=== PATIENT | female | born 1945 | race Caucasian/White ===

== ENCOUNTER → 2024-02-28 10:29 | Outpatient (REF) | payer OTHER, SELFPAY | LOC: RAD 10:29 | PROVIDERS: ATTENDING PHYSICIAN Internal Medicine Gastroenterology; FAMILY PHYSICIAN Family Medicine | DX: K76.0 Fatty (change of) liver, not elsewhere classified (principal) | CPT/HCPCS: 76700 ==

== ENCOUNTER → 2024-07-21 15:50 | Outpatient (REF) | payer OTHER, SELFPAY | LOC: RCS 15:50 | PROVIDERS: ATTENDING PHYSICIAN Nuclear Medicine Nuclear Cardiology; FAMILY PHYSICIAN Family Medicine | DX: I35.1 Nonrheumatic aortic (valve) insufficiency (principal) | CPT/HCPCS: 93306 ==

== ENCOUNTER → 2025-01-15 09:10 | Outpatient (REF) | payer OTHER, SELFPAY | LOC: PET 09:10 | PROVIDERS: ATTENDING PHYSICIAN Internal Medicine Critical Care Medicine | DX: R91.1 Solitary pulmonary nodule (principal) | CPT/HCPCS: 78815; A9552 ==

== ENCOUNTER → 2025-01-16 13:15 | Outpatient (REF) | payer OTHER, SELFPAY | LOC: HWRAD 13:15 | PROVIDERS: ATTENDING PHYSICIAN Internal Medicine Critical Care Medicine; FAMILY PHYSICIAN Family Medicine; REFERRING PHYSICIAN Specialist | DX: R91.1 Solitary pulmonary nodule (principal) | CPT/HCPCS: 71250 ==

== ENCOUNTER 2025-01-19 06:55 | Outpatient (REF) | payer OTHER, SELFPAY ==
[2025-01-19 07:23] LABS: Hematocrit 31.2 % (37.0-47.0); Hemoglobin 11.1 g/dL (12.0-16.0); Mean Corp Hgb Conc. 35.6 g/dL (33.0-37.0); Mean Corpuscular Hgb 32.8 pg (27.0-31.0); Mean Corpuscular Volume 92.3 fL (81.0-99.0); Mean Platelet Volume 8.9 fL (7.4-10.4); Platelet Count 143 10^3/uL (130-400); Red Blood Cell Count 3.38 10^6/uL (4.20-5.40); Red Cell Dist. Width 13.7 % (11.5-14.5); White Blood Cell Count 4.5 10^3/uL (4.8-10.8)
[2025-01-19 07:33] LABS: INR 0.99; PT 13.6 Sec (11.4-14.6)
[2025-01-19 07:37] VITALS: BP 150/55; BP_SYST 67
[2025-01-19 07:52] LABS: Glucose - Point of Care 82 mg/dl (70-99)
[2025-01-19 09:15] VITALS: BP 118/39
[2025-01-19 09:54] LABS: Glucose - Point of Care 67 mg/dl (70-99)
[2025-01-19 10:00] VITALS: BP 138/46
[2025-01-19 10:11] LABS: Glucose - Point of Care 72 mg/dl (70-99)
[2025-01-19 10:30] VITALS: BP 112/38
[2025-01-19 11:30] VITALS: BP 127/34
== END 2025-01-19 12:19 | disposition home or self-care (01) ==
LOC: RADI 06:55
PROVIDERS: ATTENDING PHYSICIAN Internal Medicine Critical Care Medicine; FAMILY PHYSICIAN Family Medicine; OTHER PHYSICIAN Physician Assistant
DX: C78.7 Secondary malignant neoplasm of liver and intrahepatic bile duct (principal); C80.1 Malignant (primary) neoplasm, unspecified; D68.8 Other specified coagulation defects
CPT/HCPCS: 88307; 36415; 47000; 76942; 82962; 85027; 85610; 88333; 88334; 88341; 88342; 88360; 99152; 99153

== ENCOUNTER 2025-01-22 06:09 | Day surgery (SDC) | payer OTHER, SELFPAY ==
[2025-01-16 11:32] LABS: INR 1.09; PT 14.4 Sec (11.4-14.6)
[2025-01-16 14:15] VITALS: BMI 21.2
[2025-01-22] VITALS (11 sets, daily range): BP systolic 120–151; BP diastolic 45–59; BMI 21.2
[2025-01-22 06:57] LABS: Glucose - Point of Care 138 mg/dl (70-99)
[2025-01-22 08:57] LABS: Glucose - Point of Care 125 mg/dl (70-99)
== END 2025-01-22 10:13 | disposition home or self-care (01) ==
LOC: GI 06:09
PROVIDERS: ATTENDING PHYSICIAN Internal Medicine Critical Care Medicine; FAMILY PHYSICIAN Family Medicine
DX: C34.31 Malignant neoplasm of lower lobe, right bronchus or lung (principal); R91.1 Solitary pulmonary nodule; R59.0 Localized enlarged lymph nodes
CPT/HCPCS: 31629; 31628; 31624; 31623; 31627; 31654; 88173; 88305; 36415; 71045; 76000; 82962; 85610; 85730; 87070; 87102; 87116; 87205; 88112; 88333; 88334; 88341; 88342; 93005; 94640; C1887

== ENCOUNTER → 2025-02-01 17:33 | Outpatient (REF) | payer OTHER, SELFPAY | LOC: MRI 17:33 | PROVIDERS: ATTENDING PHYSICIAN Internal Medicine Critical Care Medicine; FAMILY PHYSICIAN Family Medicine | DX: C34.31 Malignant neoplasm of lower lobe, right bronchus or lung (principal) | CPT/HCPCS: 70553; A9575 ==

== ENCOUNTER → 2025-02-26 08:29 | Outpatient (REF) | payer OTHER, SELFPAY ==
[2025-02-26 08:57] VITALS: BP 160/54; BP_SYST 61
[2025-02-26 10:45] VITALS: BP 151/49; BP 155/48; BP_SYST 64
[2025-02-26 10:50] VITALS: BP 151/49; BP_SYST 64
== END ==
LOC: RADI 08:29
PROVIDERS: ATTENDING PHYSICIAN Internal Medicine Hematology & Oncology; FAMILY PHYSICIAN Family Medicine
DX: C34.11 Malignant neoplasm of upper lobe, right bronchus or lung (principal); D69.49 Other primary thrombocytopenia
CPT/HCPCS: 36561; 76937; 77001; 99152; 99153; C1788

== ENCOUNTER 2025-03-28 11:34 | Outpatient (RCR) | payer OTHER, SELFPAY ==
[2025-03-19 10:33] LABS: % Basophils 0.2 % (0-2); % Eosinophils 1.2 % (0-6); % Immature Granulocytes 0.5 % (0-0.5); % Lymphocytes 17.6 % (20.5-51.1); % Monocytes 7.1 % (1.7-9.3); % Neutrophils 73.4 % (42.2-75.2); Absolute Eosinophils 0.1 10^3/uL (0-0.7); Absolute Lymphocytes 0.7 10^3/uL (1.2-3.4); Absolute Monocytes 0.3 10^3/uL (0.1-0.6); Hematocrit 30.8 % (37.0-47.0); Hemoglobin 10.9 g/dL (12.0-16.0); Mean Corp Hgb Conc. 35.4 g/dL (33.0-37.0); Mean Corpuscular Hgb 32.4 pg (27.0-31.0); Mean Corpuscular Volume 91.7 fL (81.0-99.0); Mean Platelet Volume 8.7 fL (7.4-10.4); Platelet Count 158 10^3/uL (130-400); Red Blood Cell Count 3.36 10^6/uL (4.20-5.40); Red Cell Dist. Width 13.6 % (11.5-14.5); White Blood Cell Count 4.1 10^3/uL (4.8-10.8)
[2025-03-19 11:32] LABS: ALT (SGPT) 16 U/L (0-35); AST (SGOT) 25 U/L (14-36); Albumin 4.6 g/dl (3.5-5.0); Alkaline Phosphatase 58 U/L (38-126); Blood Urea Nitrogen 32 mg/dl (7-17); Carbon Dioxide 22 mmol/L (22-30); Chloride 111 mmol/L (98-107); Glucose 101 mg/dl (70-99); Potassium 5.1 mmol/L (3.5-5.1); Sodium 141 mmol/L (135-145); Total Bilirubin 0.8 mg/dl (0.2-1.3); Total Protein 7.2 g/dl (6.3-8.2); eGFR 51.11
[2025-03-19 11:58] LABS: TSH Reflex To Free T4 3.39 uIU/ml (0.47-4.68)
[2025-03-20] VITALS (10 sets, daily range): BP systolic 109–160; BP diastolic 41–95
[2025-03-20] MEDS: OPDIVO 136 MG IV ×2 (09:22)
[2025-03-20] MEDS: YERVOY 61.42 MG IV (10:03)
[2025-03-20] MEDS: EMEND 150 MG IV (10:45)
[2025-03-20] MEDS: ALOXI 5 MG IV (10:45)
[2025-03-20] MEDS: DECADRON 51 MG IV (11:25)
[2025-03-20] MEDS: ABRAXANE 25.8 MG IV (11:44)
[2025-03-20] MEDS: PARAPLATIN 280.2 MG IV (12:26)
[2025-03-27 08:00] VITALS: BP 151/56
[2025-03-27 08:19] LABS: % Basophils 0.4 % (0-2); % Eosinophils 1.1 % (0-6); % Immature Granulocytes 1.5 % (0-0.5); % Lymphocytes 16.8 % (20.5-51.1); % Monocytes 6.6 % (1.7-9.3); % Neutrophils 73.6 % (42.2-75.2); Absolute Lymphocytes 0.5 10^3/uL (1.2-3.4); Absolute Monocytes 0.2 10^3/uL (0.1-0.6); Hematocrit 23.2 % (37.0-47.0); Hemoglobin 8.5 g/dL (12.0-16.0); Mean Corp Hgb Conc. 36.6 g/dL (33.0-37.0); Mean Corpuscular Hgb 33.1 pg (27.0-31.0); Mean Corpuscular Volume 90.3 fL (81.0-99.0); Mean Platelet Volume 8.9 fL (7.4-10.4); Platelet Count 140 10^3/uL (130-400); Red Blood Cell Count 2.57 10^6/uL (4.20-5.40); Red Cell Dist. Width 13.5 % (11.5-14.5); White Blood Cell Count 2.7 10^3/uL (4.8-10.8)
[2025-03-27 08:49] LABS: ALT (SGPT) 16 U/L (0-35); AST (SGOT) 20 U/L (14-36); Albumin 4.1 g/dl (3.5-5.0); Alkaline Phosphatase 52 U/L (38-126); Blood Urea Nitrogen 24 mg/dl (7-17); Calcium 9.1 mg/dl (8.4-10.2); Carbon Dioxide 22 mmol/L (22-30); Chloride 111 mmol/L (98-107); Glucose 140 mg/dl (70-99); Potassium 4.3 mmol/L (3.5-5.1); Sodium 140 mmol/L (135-145); Total Protein 6.4 g/dl (6.3-8.2); eGFR 46.05
[2025-03-27] MEDS: ALOXI 5 MG IV (10:59)
[2025-03-27] MEDS: ABRAXANE 25.8 MG IV (11:07)
[2025-03-27 11:10] VITALS: BP 151/45
[2025-03-27 11:30] VITALS: BP 154/58
[2025-03-27] MEDS: PEPCID 20 MG IV (12:00)
--- NOTE | 2025-03-27 12:24 | PTCARENOTE ---
late entry 1150: Abraxane infusion running with only a minute or two left of the infusion, pt c/o lower back pain that started approximately 10 minutes prior, but did not notify RN. Pt in no distress, describes the pain as 'throbbing' and did get
some relief with standing up. Pain then re-occurred with sitting even with a pillow and warm blanket behind her back. VS at that time were: 100% ra pox, hr 70, rr, 18, bp: 166/54. Notified [place] [employer], and orders entered for Pepcid 20mg IV now, and
at that time Dr. Herrera at bedside to see pt (approximately 12:00 PM). As Pepcid was being given, pt stating 'I think it's almost gone.' NSS IV running and pt offers no c/o pain at this time. Will continue to monitor closely.
--- NOTE | 2025-03-27 12:43 | PTCARENOTE ---
pt observed for approximately 35 minutes after pepcid given, pt offers no complaints states throbbing pain in back is completely gone, last vs: 149/83, hr 70, 100% pox ra, d/c to home with friend.
[2025-03-28] MEDS: NYVEPRIA 6 MG SC (11:54)
[2025-03-28 12:07] VITALS: BP 108/55
== END 2025-03-29 10:26 | disposition home or self-care (01) ==
LOC: OID 11:34
PROVIDERS: ATTENDING PHYSICIAN Internal Medicine Hematology & Oncology
DX: C34.11 Malignant neoplasm of upper lobe, right bronchus or lung (principal); Z51.11 Encounter for antineoplastic chemotherapy (principal); D69.49 Other primary thrombocytopenia
CPT/HCPCS: 36415; 36591; 80053; 84443; 85025; 96365; 96367; 96372; 96375; 96413; 96417; J1453; J2469; J9045; J9228; J9264; J9299; Q5122

== ENCOUNTER 2025-04-14 19:26 | Emergency (ER) | payer OTHER, SELFPAY ==
[2025-04-14 19:29] VITALS: BP 133/57
[2025-04-14 20:53] LABS: % Basophils 0.3 % (0-2); % Eosinophils 0.3 % (0-6); % Immature Granulocytes 0.6 % (0-0.5); % Lymphocytes 17.3 % (20.5-51.1); % Monocytes 4.2 % (1.7-9.3); % Neutrophils 77.3 % (42.2-75.2); Absolute Lymphocytes 0.6 10^3/uL (1.2-3.4); Absolute Monocytes 0.1 10^3/uL (0.1-0.6); Absolute Neutrophils 2.6 10^3/uL (1.4-6.5); Hematocrit 22.8 % (37.0-47.0); Mean Corp Hgb Conc. 35.1 g/dL (33.0-37.0); Mean Corpuscular Hgb 33.2 pg (27.0-31.0); Mean Corpuscular Volume 94.6 fL (81.0-99.0); Mean Platelet Volume 8.9 fL (7.4-10.4); Nucleated Red Blood Cells % 0 %; Platelet Count 123 10^3/uL (130-400); Red Blood Cell Count 2.41 10^6/uL (4.20-5.40); Red Cell Dist. Width 16.8 % (11.5-14.5); White Blood Cell Count 3.4 10^3/uL (4.8-10.8)
[2025-04-14 20:59] VITALS: BP 132/70
[2025-04-14 21:04] LABS: D-Dimer 0.96 ug/mlFEU (0.00-0.50)
--- NOTE | 2025-04-14 21:06 | ED.GENMED ---
History of Present Illness
General
Chief Complaint: Abdominal Pain
Source: patient and family
Exam Limitations: none
Time Seen by Provider: 04/14/25 19:44
Nursing documentation reviewed up to this point in time: agreed with
History of Present Illness
History of Present Illness:
The patient is a 79-year-old female with a history of cancer, presenting with abdominal pain localized beneath the right lower rib area, associated with a slight shortness of breath. The symptoms started upon waking at 7:00 AM today. There is no
nausea or vomiting accompanying these symptoms. The patient describes the pain as being located at the border of the abdomen and chest. She expressed concern about a possible issue with liver or ribs, given her history of cancer. Upon further
inquiry, she noted that deep breaths exacerbate the pain. She has undergone her second round of chemotherapy but has not experienced similar pain during her cancer treatment previously. The patient reports no recent leg swelling, trauma, surgery, or
immobilization. There is no personal history of blood clots, though she has taken blood thinners for about a year in the past but is not on them currently. She does not have a gallbladder, but concerns about potential biliary duct issues were
discussed.
Review of Systems
Review of Systems
Allergies reviewed?: Yes
All Other Systems: ROS reviewed and negative except as documented in HPI and ROS
Phy Exam
Physical Exam
Physical Exam:
GENERAL: Alert , in no apparent distress
EYE: pupils equal and reactive
NECK: Supple, no significant adenopathy.
ENT: o/p clr, mmm.
CARDIAC: Regular rate and rhythm .
LUNGS: Clear breath sounds bilaterally, no acute respiratory distress, no wheezes/rales/rhonchi
ABDOMEN: Vague discomfort to the right upper quadrant no guarding negative Hendrix's
NEUROLOGICAL: Alert and oriented, no focal neuro deficits
SKIN: Warm and dry, skin intact.
MUSCULOSKELETAL: No edema, well perfused.
PSYCH: Normal and appropriate interaction.
Course
Orders/Labs/Results
Orders:
Orders
04/14/25 20:42
Complete Blood Count/With Diff Urgent
Comprehensive Metabolic Panel Urgent
D-Dimer Urgent
Lipase Urgent
Magnesium Urgent
NT-proBNP Urgent
Troponin I Urgent
04/14/25 21:32
CT Pe/abd/pel W Urgent
Reason For Exam: right lower CP elevated dimer, hx of cancer
Abnormal Lab Results
04/14/25 04/14/25
20:42 22:38
WBC 3.4 L 10^3/uL
(4.8-10.8)
RBC 2.41 L 10^6/uL
(4.20-5.40)
Hgb 8.0 L g/dL
(12.0-16.0)
Hct 22.8 L %
(37.0-47.0)
MCH 33.2 H pg
(27.0-31.0)
RDW 16.8 H %
(11.5-14.5)
Plt Count 123 L 10^3/uL
(130-400)
Absolute Lymphs (auto) 0.6 L 10^3/uL
(1.2-3.4)
Immature Gran % 0.6 H %
(0-0.5)
Neutrophils % 77.3 H %
(42.2-75.2)
Lymphocytes % 17.3 L %
(20.5-51.1)
D-Dimer 0.96 H ug/mlFEU
(0.00-0.50)
Chloride 108 H mmol/L
(98-107)
BUN 35 H mg/dl
(7-17)
Creatinine 1.2 H mg/dL
(0.6-1.0)
Glucose 120 H mg/dl
(70-99)
Total Protein 6.2 L g/dl
(6.3-8.2)
POC Glucose 116 H mg/dl
(70-99)
04/14/25 20:42
04/14/25 20:42
Vital Signs
Initial and Last Documented VS:
Initial Vital Signs
Temp Pulse Resp BP Pulse Ox
98.7 F 73 16 133/57 96
04/14/25 19:29 04/14/25 19:29 04/14/25 19:29 04/14/25 19:29 04/14/25 19:29
Last Documented Vital Signs
Temp Pulse Resp BP Pulse Ox
98.7 F 74 14 147/49 96
04/14/25 19:29 04/15/25 00:04 04/15/25 00:04 04/15/25 00:04 04/15/25 00:04
MDM/Problems Addressed
MDM/Problems Addressed:
The plan includes initiating laboratory work, including a D-dimer to assess for potential pulmonary embolism. Imaging will be pursued based on preliminary laboratory findings, likely starting with a Computed Tomography scan to evaluate both chest
and abdomen due to the duality of symptoms. The imaging and labs will help determine if the pain basis is more abdominal (potential liver pathology) or pulmonary (potential pulmonary embolism).
The Differential Diagnosis includes, in no particular order and is not limited to:
1. Pulmonary embolism
2. Liver pathology
3. Biliary duct issues
4. Rib or musculoskeletal involvement
5. Pleural effusion
6. Pancreatitis
7. Peptic ulcer disease
8. Gastroesophageal reflux disease
9. Pericarditis
10. Thoracic aortic aneurysm
*Critical Care Note
Total Time (30-74mins, 75-104mins- exclusive of procedures): Not Applicable
Update Note
Update Note:
CT resulted without emergent findings labs unremarkable. At this point patient generally well-appearing no distress with normal vital signs throughout ER stay stable for outpatient management return precautions given.
ED Attending Note
-
Portions of this chart may have been created with voice recognition software.� Occasional wrong word or��sound alike� substitutions may have occurred due to the inherent limitations of voice recognition software.
Discharge Plan
Departure
Patient Disposition: Home (Routine Discharge)
Date of Disposition: 04/15/25
Time of Disposition: 00:56
Patient with high blood pressure during this ER visit?: No
Condition: Good
Covid-19: Not Applicable
Discharge Problem:
Right-sided chest pain
Instructions: Abdominal Pain
Prescriptions:
No Action
Ozempic 1 mg/dose (4 mg/3 mL) Pen Injector
1 mg SC QWEEK
Rx Instructions:
QFRIDAY
benazepril 40 mg Tablet
40 mg PO BID
fluoxetine 40 mg Capsule
40 mg PO NOON
amlodipine 5 mg Tablet
10 mg PO HS
levothyroxine 100 mcg Tablet
100 mcg PO NOON
zolpidem [Ambien] 5 mg Tablet
2.5 mg PO HS
albuterol sulfate 90 mcg/actuation Hfa Aerosol Inhaler
1 inh INHALATION PRN PRN (Reason: wheezing,sob)
Vitamin V16-Oofna Tablet
1 tab PO .WEEKLY
fenofibrate 160 mg Tablet
160 mg PO HS
insulin glargine [Lantus Solostar U-100 Insulin] 100 unit/mL (3 mL) Insulin Pen
32 unit SC BID
Rx Instructions:
NOON AND PM
paclitaxel protein-bound [Abraxane] 100 mg Suspension For Reconstitution
129 mg IV .WEEKLY
Patient Comments:
. schedule varies
Opdivo
360 mg IV .Q3 WEEKS
Yervoy
57.1 mg IV .[id number]
carboplatin
302 mg IV .WEEKLY
Patient Comments:
schedule varies
Referrals:
UNKNOWN - PT DOES,NOT KNOW [Family Provider]
Activity Restrictions/Additional Instructions:
You came to the emergency department today with concerns of right lower chest and right upper abdominal pain. Here had reassuring assessment. You were found to be fairly anemic please follow closely for monitoring of this. Otherwise return for
any worsening, new or concerning symptoms.
Interventions
Interventions:
*Risk Screen - Suicide Last Done: 04/14/25 19:29
*General Assessment Last Done: 04/14/25 19:29
*ED- Fall Risk Assessment Last Done: 04/14/25 19:54
NW-Eqvkmx-Cogoywhrws Assessment Last Done: 04/14/25 19:54
Discharge Date and Time
Print Language: [place] CITIZ[place]
[2025-04-14 21:11] LABS: Albumin 3.6 g/dl (3.5-5.0); Blood Urea Nitrogen 35 mg/dl (7-17); Carbon Dioxide 22 mmol/L (22-30); Total Protein 6.2 g/dl (6.3-8.2); eGFR 46.05
[2025-04-14 21:15] LABS: NT-proBNP 661 pg/ml; Troponin I < 0.012 ng/ml
[2025-04-14 21:21] LABS: ALT (SGPT) 11 U/L (0-35); AST (SGOT) 22 U/L (14-36); Alkaline Phosphatase 47 U/L (38-126); Calcium 8.7 mg/dl (8.4-10.2); Chloride 108 mmol/L (98-107); Glucose 120 mg/dl (70-99); Lipase 138 U/L (23-300); Magnesium 1.9 mg/dl (1.6-2.3); Potassium 5.1 mmol/L (3.5-5.1); Sodium 137 mmol/L (135-145); Total Bilirubin 0.7 mg/dl (0.2-1.3)
[2025-04-14 22:40] LABS: Glucose - Point of Care 116 mg/dl (70-99)
[2025-04-14 22:42] VITALS: BP 130/76
[2025-04-15 00:04] VITALS: BP 147/49
[2025-04-15 01:00] VITALS: BP 139/50
[2025-04-15 01:25] VITALS: BP 139/50
== END 2025-04-15 01:26 | disposition home or self-care (01) ==
LOC: EMR 19:26
PROVIDERS: Physician Assistant; EMERGENCY PHYSICIAN Student in an Organized Health Care Education/Training Program
DX: R07.89 Other chest pain (principal); R10.9 Unspecified abdominal pain; C34.31 Malignant neoplasm of lower lobe, right bronchus or lung; Z90.49 Acquired absence of other specified parts of digestive tract
CPT/HCPCS: 99284; 71275; 74177; 80053; 82962; 83690; 83735; 83880; 84484; 85025; 85379; Q9967

== ENCOUNTER 2025-04-30 11:16 | Outpatient (RCR) | payer OTHER, SELFPAY ==
[2025-04-03 13:50] LABS: % Basophils 0.2 % (0-2); % Eosinophils 0.1 % (0-6); % Immature Granulocytes 7.5 % (0-0.5); % Lymphocytes 5.6 % (20.5-51.1); % Monocytes 8.5 % (1.7-9.3); % Neutrophils 78.1 % (42.2-75.2); Absolute Immature Granulocytes 1.1 10^3/uL (0-0.05); Absolute Lymphocytes 0.9 10^3/uL (1.2-3.4); Absolute Monocytes 1.3 10^3/uL (0.1-0.6); Absolute Neutrophils 11.9 10^3/uL (1.4-6.5); Hemoglobin 8.6 g/dL (12.0-16.0); Mean Corp Hgb Conc. 34.4 g/dL (33.0-37.0); Mean Corpuscular Hgb 32.1 pg (27.0-31.0); Mean Corpuscular Volume 93.3 fL (81.0-99.0); Mean Platelet Volume 9.1 fL (7.4-10.4); Platelet Count 138 10^3/uL (130-400); Red Blood Cell Count 2.68 10^6/uL (4.20-5.40); Red Cell Dist. Width 15.8 % (11.5-14.5); White Blood Cell Count 15.3 10^3/uL (4.8-10.8)
[2025-04-03 14:36] LABS: ALT (SGPT) 16 U/L (0-35); AST (SGOT) 28 U/L (14-36); Alkaline Phosphatase 97 U/L (38-126); Blood Urea Nitrogen 14 mg/dl (7-17); Carbon Dioxide 21 mmol/L (22-30); Chloride 110 mmol/L (98-107); Glucose 194 mg/dl (70-99); Potassium 3.8 mmol/L (3.5-5.1); Sodium 142 mmol/L (135-145); Total Bilirubin 0.9 mg/dl (0.2-1.3); Total Protein 6.3 g/dl (6.3-8.2); eGFR 46.05
[2025-04-03 15:08] LABS: Calcium 8.7 mg/dl (8.4-10.2)
[2025-04-09 11:31] LABS: % Basophils 0.2 % (0-2); % Eosinophils 0.2 % (0-6); % Immature Granulocytes 0.7 % (0-0.5); % Monocytes 3.6 % (1.7-9.3); % Neutrophils 88.3 % (42.2-75.2); Absolute Lymphocytes 0.4 10^3/uL (1.2-3.4); Absolute Monocytes 0.2 10^3/uL (0.1-0.6); Absolute Neutrophils 5.1 10^3/uL (1.4-6.5); Hematocrit 26.5 % (37.0-47.0); Mean Corpuscular Hgb 32.6 pg (27.0-31.0); Mean Platelet Volume 8.7 fL (7.4-10.4); Platelet Count 113 10^3/uL (130-400); Red Blood Cell Count 2.76 10^6/uL (4.20-5.40); Red Cell Dist. Width 16.9 % (11.5-14.5); White Blood Cell Count 5.8 10^3/uL (4.8-10.8)
[2025-04-09 12:35] LABS: ALT (SGPT) 11 U/L (0-35); AST (SGOT) 20 U/L (14-36); Albumin 3.9 g/dl (3.5-5.0); Alkaline Phosphatase 56 U/L (38-126); Blood Urea Nitrogen 23 mg/dl (7-17); Calcium 8.9 mg/dl (8.4-10.2); Carbon Dioxide 20 mmol/L (22-30); Chloride 110 mmol/L (98-107); Glucose 138 mg/dl (70-99); Potassium 4.4 mmol/L (3.5-5.1); Sodium 141 mmol/L (135-145); Total Bilirubin 0.8 mg/dl (0.2-1.3); Total Protein 6.5 g/dl (6.3-8.2); eGFR 46.05
[2025-04-09 13:29] LABS: Free T4 1.33 ng/dl (0.78-2.19)
[2025-04-10 08:30] VITALS: BP 122/40
[2025-04-10] MEDS: OPDIVO 136 MG IV ×2 (09:40)
[2025-04-10] MEDS: EMEND 150 MG IV (10:22)
[2025-04-10] MEDS: DECADRON 51 MG IV (10:58)
[2025-04-10] MEDS: ALOXI 5 MG IV (11:14)
[2025-04-10] MEDS: PARAPLATIN 278.6 MG IV (11:21)
[2025-04-10 11:30] VITALS: BP 132/41
[2025-04-10 12:00] VITALS: BP 124/45
[2025-04-10 12:30] VITALS: BP 141/49
[2025-04-16 11:49] LABS: % Immature Granulocytes 0.2 % (0-0.5); % Lymphocytes 8.3 % (20.5-51.1); % Neutrophils 86.5 % (42.2-75.2); Absolute Lymphocytes 0.4 10^3/uL (1.2-3.4); Absolute Monocytes 0.2 10^3/uL (0.1-0.6); Absolute Neutrophils 3.6 10^3/uL (1.4-6.5); Hematocrit 27.1 % (37.0-47.0); Hemoglobin 9.4 g/dL (12.0-16.0); Mean Corp Hgb Conc. 34.7 g/dL (33.0-37.0); Mean Corpuscular Volume 95.1 fL (81.0-99.0); Mean Platelet Volume 8.4 fL (7.4-10.4); Platelet Count 147 10^3/uL (130-400); Red Blood Cell Count 2.85 10^6/uL (4.20-5.40); Red Cell Dist. Width 16.9 % (11.5-14.5); White Blood Cell Count 4.2 10^3/uL (4.8-10.8)
[2025-04-16 13:08] LABS: ALT (SGPT) 11 U/L (0-35); AST (SGOT) 24 U/L (14-36); Albumin 4.3 g/dl (3.5-5.0); Alkaline Phosphatase 51 U/L (38-126); Blood Urea Nitrogen 33 mg/dl (7-17); Calcium 9.1 mg/dl (8.4-10.2); Carbon Dioxide 24 mmol/L (22-30); Chloride 109 mmol/L (98-107); Glucose 49 mg/dl (70-99); Potassium 5.1 mmol/L (3.5-5.1); Sodium 140 mmol/L (135-145); Total Bilirubin 0.9 mg/dl (0.2-1.3); Total Protein 7.2 g/dl (6.3-8.2); eGFR 46.05
[2025-04-17 08:35] VITALS: BP 151/51
--- NOTE | 2025-04-17 10:31 | PTCARENOTE ---
0845: pt here for Abraxane, stating that she went to the ER on Wednesday evening for right mid/upper abdominal pain. Pt stating 'they did a cat scan and it showed nothing new, so they told me to go home and take advil.' Pt has not taken advil or
tylenol, due to not wanting to. States the pain is still there especially when taking deeper breaths. Right now pt states pain level is 6/10 on pain scale, feels like a sharp stabbing pain, and is less than when it first started. Offered warm
blanket for comfort and pt stated that it did feel better. Pt denies fevers/chills, she is moving her bowels and is eating and drinking without any issues. ILIA Mcpherson [employer]UST[employer]ER [employer] at [place] @ [phone], will continue to monitor.
--- NOTE | 2025-04-17 10:36 | PTCARENOTE ---
1000: spoke with Ky GU at [place], updated her on pt's pain and going to the ER, she would like to review pt's ER records before proceeding with treatment today. Updated pt, in agreement, will follow.
[2025-04-17] MEDS: PEPCID 52 MG IV (11:04)
[2025-04-17] MEDS: SOLU-CORTEF 40 MG IV (11:05)
[2025-04-17] MEDS: ALOXI 5 MG IV (11:06)
[2025-04-17 11:30] VITALS: BP 129/55
[2025-04-17] MEDS: ABRAXANE 22.6 MG IV (11:32)
[2025-04-17 11:45] VITALS: BP 142/39
--- NOTE | 2025-04-17 11:48 | PTCARENOTE ---
1100: ok to proceed with treatment, pt resting comfortably with warm blanket over abdomen, offers no complaints, will continue to monitor.
[2025-04-17 12:00] VITALS: BP 99/52
[2025-04-17 12:15] VITALS: BP 150/35
[2025-04-18 14:30] VITALS: BP 139/42
[2025-04-18] MEDS: NYVEPRIA 6 MG SC (14:40)
[2025-04-23 15:00] LABS: % Basophils 0.3 % (0-2); % Eosinophils 0.3 % (0-6); % Immature Granulocytes 1.4 % (0-0.5); % Lymphocytes 9.5 % (20.5-51.1); % Monocytes 6.1 % (1.7-9.3); % Neutrophils 82.4 % (42.2-75.2); Absolute Immature Granulocytes 0.1 10^3/uL (0-0.05); Absolute Lymphocytes 0.8 10^3/uL (1.2-3.4); Absolute Monocytes 0.5 10^3/uL (0.1-0.6); Absolute Neutrophils 6.5 10^3/uL (1.4-6.5); Hematocrit 23.9 % (37.0-47.0); Hemoglobin 8.3 g/dL (12.0-16.0); Mean Corp Hgb Conc. 34.7 g/dL (33.0-37.0); Mean Corpuscular Hgb 33.9 pg (27.0-31.0); Mean Corpuscular Volume 97.6 fL (81.0-99.0); Mean Platelet Volume 9.1 fL (7.4-10.4); Platelet Count 112 10^3/uL (130-400); Red Blood Cell Count 2.45 10^6/uL (4.20-5.40); Red Cell Dist. Width 18.9 % (11.5-14.5); White Blood Cell Count 7.9 10^3/uL (4.8-10.8)
[2025-04-23 15:34] LABS: ALT (SGPT) 12 U/L (0-35); AST (SGOT) 18 U/L (14-36); Albumin 4.1 g/dl (3.5-5.0); Alkaline Phosphatase 81 U/L (38-126); Blood Urea Nitrogen 32 mg/dl (7-17); Carbon Dioxide 22 mmol/L (22-30); Chloride 112 mmol/L (98-107); Glucose 123 mg/dl (70-99); Potassium 4.7 mmol/L (3.5-5.1); Sodium 143 mmol/L (135-145); Total Bilirubin 0.8 mg/dl (0.2-1.3); Total Protein 6.4 g/dl (6.3-8.2); eGFR 41.83
[2025-04-23 16:03] LABS: TSH 2.29 uIU/ml (0.47-4.68)
[2025-04-30 11:43] LABS: % Basophils 0.3 % (0-2); % Immature Granulocytes 0.5 % (0-0.5); % Lymphocytes 7.1 % (20.5-51.1); % Monocytes 2.7 % (1.7-9.3); % Neutrophils 89.4 % (42.2-75.2); Absolute Lymphocytes 0.3 10^3/uL (1.2-3.4); Absolute Monocytes 0.1 10^3/uL (0.1-0.6); Absolute Neutrophils 3.3 10^3/uL (1.4-6.5); Hematocrit 23.1 % (37.0-47.0); Hemoglobin 7.9 g/dL (12.0-16.0); Mean Corp Hgb Conc. 34.2 g/dL (33.0-37.0); Mean Corpuscular Hgb 33.9 pg (27.0-31.0); Mean Corpuscular Volume 99.1 fL (81.0-99.0); Mean Platelet Volume 8.5 fL (7.4-10.4); Platelet Count 81 10^3/uL (130-400); Red Blood Cell Count 2.33 10^6/uL (4.20-5.40); Red Cell Dist. Width 19.2 % (11.5-14.5); White Blood Cell Count 3.7 10^3/uL (4.8-10.8)
[2025-04-30 12:42] LABS: ALT (SGPT) 10 U/L (0-35); AST (SGOT) 19 U/L (14-36); Albumin 4.1 g/dl (3.5-5.0); Alkaline Phosphatase 61 U/L (38-126); Blood Urea Nitrogen 32 mg/dl (7-17); Calcium 8.9 mg/dl (8.4-10.2); Carbon Dioxide 20 mmol/L (22-30); Glucose 113 mg/dl (70-99); Total Bilirubin 0.9 mg/dl (0.2-1.3); Total Protein 6.6 g/dl (6.3-8.2); eGFR 41.83
[2025-04-30 13:09] LABS: Chloride 112 mmol/L (98-107); Sodium 141 mmol/L (135-145); TSH Reflex To Free T4 2.75 uIU/ml (0.47-4.68)
[2025-04-30 13:43] LABS: Potassium 4.9 mmol/L (3.5-5.1)
== END 2025-04-30 13:25 | disposition home or self-care (01) ==
LOC: OID 11:16
PROVIDERS: ATTENDING PHYSICIAN Internal Medicine Hematology & Oncology; FAMILY PHYSICIAN Family Medicine
DX: C34.11 Malignant neoplasm of upper lobe, right bronchus or lung (principal); Z51.11 Encounter for antineoplastic chemotherapy (principal); D69.49 Other primary thrombocytopenia; Z87.891 Personal history of nicotine dependence
CPT/HCPCS: 36415; 80053; 84439; 84443; 85025; 86850; 86900; 86901; 86920; 96365; 96367; 96372; 96375; 96413; 96417; J1453; J2469; J9045; J9264; J9299; Q5122

== ENCOUNTER 2025-05-16 14:21 | Outpatient (RCR) | payer OTHER, SELFPAY ==
[2025-05-01 11:40] VITALS: BP 135/36
[2025-05-01 11:58] VITALS: BP 125/36
[2025-05-01 14:22] VITALS: BP 121/40
[2025-05-07 11:18] LABS: Hematocrit 31.3 % (37.0-47.0); Hemoglobin 10.8 g/dL (12.0-16.0); Mean Corp Hgb Conc. 34.5 g/dL (33.0-37.0); Mean Corpuscular Volume 96.3 fL (81.0-99.0); Platelet Count 203 10^3/uL (130-400); Red Cell Dist. Width 16.9 % (11.5-14.5)
[2025-05-07 14:01] LABS: ALT (SGPT) 11 U/L (0-35); AST (SGOT) 21 U/L (14-36); Albumin 4.5 g/dl (3.5-5.0); Alkaline Phosphatase 61 U/L (38-126); Blood Urea Nitrogen 22 mg/dl (7-17); Calcium 9.5 mg/dl (8.4-10.2); Carbon Dioxide 22 mmol/L (22-30); Chloride 112 mmol/L (98-107); Glucose 115 mg/dl (70-99); Potassium 5.1 mmol/L (3.5-5.1); Sodium 141 mmol/L (135-145); Total Protein 7.4 g/dl (6.3-8.2); eGFR 51.11
[2025-05-07 14:22] LABS: TSH 6.54 uIU/ml (0.47-4.68)
[2025-05-08] MEDS: OPDIVO 136 MG IV ×2 (09:21)
[2025-05-08 09:29] LABS: Iron 65 ug/dl (37-170)
[2025-05-08 09:38] LABS: Total Iron Binding Capacity 338 ug/dl (265-497)
[2025-05-08] MEDS: YERVOY 61.42 MG IV (10:03)
[2025-05-08 10:11] VITALS: BP 141/44
[2025-05-08 10:40] LABS: Folate 4.8 ng/ml (2.76-20); Vitamin B12 > 1000 pg/ml (239-931)
[2025-05-08] MEDS: EMEND 150 MG IV (10:56)
[2025-05-08] MEDS: ALOXI 5 MG IV (11:36)
[2025-05-08] MEDS: PEPCID 52 MG IV (11:37)
[2025-05-08] MEDS: DECADRON 51 MG IV (12:09)
[2025-05-08] MEDS: ABRAXANE 22.6 MG IV (12:38)
[2025-05-08] MEDS: PARAPLATIN 278.6 MG IV (13:42)
[2025-05-08 14:50] VITALS: BP 143/51
[2025-05-14 11:26] LABS: Hematocrit 26.8 % (37.0-47.0); Hemoglobin 9.3 g/dL (12.0-16.0); Mean Corp Hgb Conc. 34.7 g/dL (33.0-37.0); Mean Corpuscular Volume 95.0 fL (81.0-99.0); Platelet Count 200 10^3/uL (130-400); Red Cell Dist. Width 15.5 % (11.5-14.5)
[2025-05-14 12:36] LABS: ALT (SGPT) 13 U/L (0-35); AST (SGOT) 22 U/L (14-36); Albumin 4.1 g/dl (3.5-5.0); Alkaline Phosphatase 56 U/L (38-126); Blood Urea Nitrogen 32 mg/dl (7-17); Calcium 9.4 mg/dl (8.4-10.2); Carbon Dioxide 23 mmol/L (22-30); Chloride 110 mmol/L (98-107); Glucose 164 mg/dl (70-99); Potassium 4.7 mmol/L (3.5-5.1); Sodium 139 mmol/L (135-145); Total Protein 6.7 g/dl (6.3-8.2); eGFR 51.11
[2025-05-14 12:58] LABS: TSH 8.90 uIU/ml (0.47-4.68)
[2025-05-15 08:45] VITALS: BP 103/84
[2025-05-15] MEDS: ALOXI 5 MG IV (09:03)
[2025-05-15] MEDS: PEPCID 52 MG IV (09:04)
[2025-05-15] MEDS: SOLU-CORTEF 40 MG IV (09:04)
[2025-05-15] MEDS: ABRAXANE 22.6 MG IV (10:16)
[2025-05-15 11:40] VITALS: BP 95/62
[2025-05-16 14:35] VITALS: BP 117/45
[2025-05-16] MEDS: NYVEPRIA 6 MG SC (14:42)
[2025-05-22 15:27] LABS: Hematocrit 25.6 % (37.0-47.0); Hemoglobin 8.7 g/dL (12.0-16.0); Mean Corp Hgb Conc. 34.0 g/dL (33.0-37.0); Mean Corpuscular Volume 98.1 fL (81.0-99.0); Platelet Count 86 10^3/uL (130-400); Red Cell Dist. Width 18.0 % (11.5-14.5)
[2025-05-22 17:34] LABS: Absolute Neutrophils -Man Diff 16.3 10^3/uL (1.4-6.5)
[2025-05-22 17:35] LABS: Anisocytosis 1+; Macrocytosis 2+; Normal RBC Morphology No; Platelets Checked Yes; Polychromasia 1+
[2025-05-22 17:36] LABS: Microcytosis 1+; Total Cells Counted 100
[2025-05-28 11:26] LABS: Hematocrit 26.1 % (37.0-47.0); Hemoglobin 8.7 g/dL (12.0-16.0); Mean Corp Hgb Conc. 33.3 g/dL (33.0-37.0); Mean Corpuscular Volume 102.0 fL (81.0-99.0); Platelet Count 77 10^3/uL (130-400); Red Cell Dist. Width 18.0 % (11.5-14.5)
[2025-05-28 12:18] LABS: ALT (SGPT) 11 U/L (0-35); AST (SGOT) 20 U/L (14-36); Albumin 3.9 g/dl (3.5-5.0); Alkaline Phosphatase 89 U/L (38-126); Blood Urea Nitrogen 19 mg/dl (7-17); Calcium 8.9 mg/dl (8.4-10.2); Carbon Dioxide 21 mmol/L (22-30); Chloride 112 mmol/L (98-107); Glucose 149 mg/dl (70-99); Potassium 4.7 mmol/L (3.5-5.1); Sodium 139 mmol/L (135-145); Total Protein 6.4 g/dl (6.3-8.2); eGFR > 60.00
[2025-05-28 12:48] LABS: TSH 5.81 uIU/ml (0.47-4.68)
== END 2025-05-31 23:59 | disposition home or self-care (01) ==
LOC: OID 14:21
PROVIDERS: ATTENDING PHYSICIAN Internal Medicine Hematology & Oncology; FAMILY PHYSICIAN Family Medicine
DX: Z51.11 Encounter for antineoplastic chemotherapy (principal); C34.11 Malignant neoplasm of upper lobe, right bronchus or lung (principal); D69.49 Other primary thrombocytopenia; G61.81 Chronic inflammatory demyelinating polyneuritis; Z87.891 Personal history of nicotine dependence; C78.7 Secondary malignant neoplasm of liver and intrahepatic bile duct; C79.51 Secondary malignant neoplasm of bone; D69.6 Thrombocytopenia, unspecified
CPT/HCPCS: 36415; 36430; 80053; 82607; 82746; 83540; 83550; 84443; 85025; 86850; 86900; 86901; 86920; 96367; 96368; 96372; 96374; 96375; 96413; 96417; J1453; J2469; J9045; J9228; J9264; J9299; P9016; Q5122

== ENCOUNTER → 2025-06-21 10:41 | Outpatient (REF) | payer OTHER, SELFPAY | LOC: PET 10:41 | PROVIDERS: ATTENDING PHYSICIAN Internal Medicine Hematology & Oncology | DX: C34.11 Malignant neoplasm of upper lobe, right bronchus or lung (principal) | CPT/HCPCS: 78815; A9552 ==

== ENCOUNTER 2025-06-27 08:35 | Outpatient (RCR) | payer OTHER, SELFPAY ==
[2025-06-04 14:46] LABS: Hematocrit 21.3 % (37.0-47.0); Hemoglobin 7.2 g/dL (12.0-16.0); Mean Corp Hgb Conc. 33.8 g/dL (33.0-37.0); Mean Corpuscular Volume 102.9 fL (81.0-99.0); Platelet Count 124 10^3/uL (130-400); Red Cell Dist. Width 18.6 % (11.5-14.5)
[2025-06-04 15:24] LABS: ALT (SGPT) < 10 U/L (0-35); AST (SGOT) 24 U/L (14-36); Albumin 4.1 g/dl (3.5-5.0); Alkaline Phosphatase 62 U/L (38-126); Blood Urea Nitrogen 31 mg/dl (7-17); Calcium 8.8 mg/dl (8.4-10.2); Carbon Dioxide 21 mmol/L (22-30); Chloride 110 mmol/L (98-107); Glucose 122 mg/dl (70-99); Potassium 4.3 mmol/L (3.5-5.1); Sodium 139 mmol/L (135-145); Total Protein 6.5 g/dl (6.3-8.2); eGFR 50.80
[2025-06-04 15:54] LABS: TSH 3.95 uIU/ml (0.47-4.68)
[2025-06-05] VITALS (7 sets, daily range): BP systolic 137–155; BP diastolic 47–61
[2025-06-06] VITALS (7 sets, daily range): BP systolic 132–147; BP diastolic 47–63
[2025-06-06 08:56] LABS: Hematocrit 26.1 % (37.0-47.0); Hemoglobin 8.9 g/dL (12.0-16.0); Mean Corp Hgb Conc. 34.1 g/dL (33.0-37.0); Mean Corpuscular Volume 97.0 fL (81.0-99.0); Platelet Count 119 10^3/uL (130-400); Red Cell Dist. Width 21.2 % (11.5-14.5)
[2025-06-06 09:29] LABS: Iron 74 ug/dl (37-170)
[2025-06-06 09:39] LABS: Total Iron Binding Capacity 339 ug/dl (265-497)
[2025-06-06] MEDS: OPDIVO 136 MG IV ×2 (09:56)
[2025-06-06 10:09] LABS: Ferritin 380.0 ng/ml (11.1-264.0)
[2025-06-06] MEDS: EMEND 150 MG IV (10:33)
[2025-06-06] MEDS: ALOXI 5 MG IV (11:10)
[2025-06-06] MEDS: DECADRON 51 MG IV (11:11)
[2025-06-06] MEDS: PEPCID 52 MG IV (11:41)
[2025-06-06] MEDS: ABRAXANE 22.6 MG IV (12:12)
[2025-06-06] MEDS: PARAPLATIN 279.1 MG IV (12:50)
[2025-06-12 14:59] LABS: Hematocrit 24.7 % (37.0-47.0); Hemoglobin 8.4 g/dL (12.0-16.0); Mean Corp Hgb Conc. 34.0 g/dL (33.0-37.0); Mean Corpuscular Volume 96.5 fL (81.0-99.0); Platelet Count 152 10^3/uL (130-400); Red Cell Dist. Width 17.6 % (11.5-14.5)
[2025-06-12 15:53] LABS: ALT (SGPT) 10 U/L (0-35); AST (SGOT) 23 U/L (14-36); Albumin 3.9 g/dl (3.5-5.0); Alkaline Phosphatase 60 U/L (38-126); Blood Urea Nitrogen 30 mg/dl (7-17); Calcium 8.6 mg/dl (8.4-10.2); Carbon Dioxide 22 mmol/L (22-30); Chloride 109 mmol/L (98-107); Glucose 111 mg/dl (70-99); Potassium 5.2 mmol/L (3.5-5.1); Sodium 139 mmol/L (135-145); Total Protein 6.2 g/dl (6.3-8.2); eGFR 56.95
[2025-06-12 16:23] LABS: TSH 5.10 uIU/ml (0.47-4.68)
[2025-06-13 08:40] VITALS: BP 147/49
[2025-06-13] MEDS: ALOXI 5 MG IV (09:26)
[2025-06-13] MEDS: SOLU-CORTEF 40 MG IV (09:27)
[2025-06-13] MEDS: ABRAXANE 22.6 MG IV (09:28)
[2025-06-13 09:45] VITALS: BP 142/49
[2025-06-13 10:00] VITALS: BP 128/44
--- NOTE | 2025-06-13 10:07 | PTCARENOTE ---
Met with patient chairside. Reports tolerating chemo and immunotherapy well. Still with occasional diarrhea but feels she is controlling it with diet. Minimal neuropathy to feet. Has good support. Sleeps ok which is chronic in nature and not
new. Discussed nutrition consult, acupuncture, PT, and different resources available to help with side effects. She has my contact info and will call back as needed for referrals or questions. To follow up with Med onc next week 06/22 after 4th
cycle of chemo.
[2025-06-13 10:15] VITALS: BP 147/51
[2025-06-14 14:40] VITALS: BP 129/40
[2025-06-14] MEDS: NYVEPRIA 6 MG SC (14:43)
[2025-06-20 14:33] LABS: Hematocrit 27.0 % (37.0-47.0); Hemoglobin 9.0 g/dL (12.0-16.0); Mean Corp Hgb Conc. 33.3 g/dL (33.0-37.0); Mean Corpuscular Volume 102.7 fL (81.0-99.0); Platelet Count 76 10^3/uL (130-400); Red Cell Dist. Width 19.6 % (11.5-14.5)
[2025-06-26 15:34] LABS: ALT (SGPT) 12 U/L (0-35); AST (SGOT) 21 U/L (14-36); Albumin 4.1 g/dl (3.5-5.0); Alkaline Phosphatase 78 U/L (38-126); Blood Urea Nitrogen 24 mg/dl (7-17); Calcium 9.1 mg/dl (8.4-10.2); Carbon Dioxide 22 mmol/L (22-30); Chloride 111 mmol/L (98-107); Glucose 165 mg/dl (70-99); Potassium 4.5 mmol/L (3.5-5.1); Sodium 140 mmol/L (135-145); Total Protein 6.4 g/dl (6.3-8.2); eGFR 56.95
[2025-06-26 16:31] LABS: Hematocrit 25.8 % (37.0-47.0); Hemoglobin 8.6 g/dL (12.0-16.0); Mean Corp Hgb Conc. 33.3 g/dL (33.0-37.0); Mean Corpuscular Volume 101.6 fL (81.0-99.0); Nucleated Red Blood Cells % 0 %; Platelet Count 60 10^3/uL (130-400); Red Cell Dist. Width 17.6 % (11.5-14.5)
[2025-06-27 08:45] VITALS: BP 153/54
[2025-06-27] MEDS: OPDIVO 136 MG IV ×2 (08:53)
[2025-06-27] MEDS: YERVOY 61.42 MG IV (09:37)
--- NOTE | 2025-06-27 12:12 | PTCARENOTE ---
Pt due for chemotherapy today, and labs from 06/26 showing a platelet count of 60. Information tiger texted to Dr. Herrera and Stacy MORAN at [place]. Abraxane and Carbo to be held for today, and only Opdivo and Yervoy to be given. Orders were
updated in [facility] by Dr. Herrera. Pt updated and in agreement. Will continue to follow.
== END 2025-06-28 08:32 | disposition home or self-care (01) ==
LOC: OID 08:35
PROVIDERS: ATTENDING PHYSICIAN Internal Medicine Hematology & Oncology; FAMILY PHYSICIAN Family Medicine
DX: C34.11 Malignant neoplasm of upper lobe, right bronchus or lung (principal); Z51.11 Encounter for antineoplastic chemotherapy (principal); C78.7 Secondary malignant neoplasm of liver and intrahepatic bile duct; C79.51 Secondary malignant neoplasm of bone; D69.49 Other primary thrombocytopenia; D69.6 Thrombocytopenia, unspecified; G61.81 Chronic inflammatory demyelinating polyneuritis; Z87.891 Personal history of nicotine dependence
CPT/HCPCS: 36415; 36430; 36591; 80053; 82728; 83540; 83550; 84439; 84443; 85025; 86850; 86900; 86901; 86920; 96367; 96372; 96374; 96375; 96413; 96415; 96417; J1453; J2469; J9045; J9228; J9264; J9299; P9016; Q5122

== ENCOUNTER → 2025-07-17 14:13 | Outpatient (REF) | payer OTHER, SELFPAY | LOC: RCS 14:13 | PROVIDERS: ATTENDING PHYSICIAN Nuclear Medicine Nuclear Cardiology; FAMILY PHYSICIAN Family Medicine | DX: I35.0 Nonrheumatic aortic (valve) stenosis (principal) | CPT/HCPCS: 93306 ==

== ENCOUNTER 2025-07-24 14:24 | Outpatient (RCR) | payer OTHER, SELFPAY ==
[2025-07-03 15:08] LABS: Hematocrit 25.6 % (37.0-47.0); Hemoglobin 8.8 g/dL (12.0-16.0); Mean Corp Hgb Conc. 34.4 g/dL (33.0-37.0); Mean Corpuscular Volume 102.8 fL (81.0-99.0); Platelet Count 92 10^3/uL (130-400); Red Cell Dist. Width 17.0 % (11.5-14.5)
[2025-07-03 16:09] LABS: ALT (SGPT) 12 U/L (0-35); AST (SGOT) 21 U/L (14-36); Albumin 4.2 g/dl (3.5-5.0); Alkaline Phosphatase 72 U/L (38-126); Blood Urea Nitrogen 31 mg/dl (7-17); Calcium 9.3 mg/dl (8.4-10.2); Carbon Dioxide 22 mmol/L (22-30); Chloride 109 mmol/L (98-107); Glucose 192 mg/dl (70-99); Potassium 5.1 mmol/L (3.5-5.1); Sodium 136 mmol/L (135-145); Total Protein 6.6 g/dl (6.3-8.2); eGFR 50.80
[2025-07-03 16:39] LABS: TSH 4.93 uIU/ml (0.47-4.68)
[2025-07-09 13:21] LABS: Hematocrit 25.5 % (37.0-47.0); Hemoglobin 9.0 g/dL (12.0-16.0); Mean Corp Hgb Conc. 35.3 g/dL (33.0-37.0); Mean Corpuscular Volume 102.0 fL (81.0-99.0); Platelet Count 125 10^3/uL (130-400); Red Cell Dist. Width 15.7 % (11.5-14.5)
[2025-07-09 14:25] LABS: ALT (SGPT) 12 U/L (0-35); AST (SGOT) 21 U/L (14-36); Albumin 4.2 g/dl (3.5-5.0); Alkaline Phosphatase 67 U/L (38-126); Blood Urea Nitrogen 27 mg/dl (7-17); Calcium 9.1 mg/dl (8.4-10.2); Carbon Dioxide 22 mmol/L (22-30); Chloride 109 mmol/L (98-107); Glucose 236 mg/dl (70-99); Potassium 4.8 mmol/L (3.5-5.1); Sodium 139 mmol/L (135-145); Total Protein 6.5 g/dl (6.3-8.2); eGFR 56.95
[2025-07-09 14:55] LABS: TSH 3.43 uIU/ml (0.47-4.68)
[2025-07-11 08:30] VITALS: BP 150/37
[2025-07-11] MEDS: EMEND 150 MG IV (09:19)
[2025-07-11] MEDS: ALOXI 5 MG IV (09:55)
[2025-07-11] MEDS: DECADRON 51 MG IV (09:56)
[2025-07-11] MEDS: ABRAXANE 22.6 MG IV (10:28)
[2025-07-11] MEDS: PARAPLATIN 278.6 MG IV (11:30)
[2025-07-11 13:45] VITALS: BP 133/40
--- NOTE | 2025-07-12 09:07 | PTCARENOTE ---
0845 Call received from patients daughter. Pt has temp of 101, nausea, weakness. Pt daughter placed call to [facility] but has not heard back from them as of yet. Based o patient symptoms advised to take patient to the emergency
department.
Call place to [facility], spoke with Perla front office staff. Reported patient symptoms and that patient is going to the Emergency Department.
[2025-07-13 14:33] VITALS: BP 144/84
[2025-07-13] MEDS: NYVEPRIA 6 MG SC (14:39)
[2025-07-17 13:47] LABS: Hematocrit 25.1 % (37.0-47.0); Hemoglobin 8.6 g/dL (12.0-16.0); Mean Corp Hgb Conc. 34.3 g/dL (33.0-37.0); Mean Corpuscular Volume 103.7 fL (81.0-99.0); Platelet Count 94 10^3/uL (130-400); Red Cell Dist. Width 14.4 % (11.5-14.5)
[2025-07-17 14:27] LABS: ALT (SGPT) 12 U/L (0-35); AST (SGOT) 20 U/L (14-36); Albumin 3.9 g/dl (3.5-5.0); Alkaline Phosphatase 98 U/L (38-126); Blood Urea Nitrogen 19 mg/dl (7-17); Calcium 8.9 mg/dl (8.4-10.2); Carbon Dioxide 23 mmol/L (22-30); Chloride 108 mmol/L (98-107); Glucose 173 mg/dl (70-99); Potassium 4.3 mmol/L (3.5-5.1); Sodium 138 mmol/L (135-145); Total Protein 6.2 g/dl (6.3-8.2); eGFR 50.80
[2025-07-17 14:57] LABS: TSH 7.22 uIU/ml (0.47-4.68)
[2025-07-18 10:05] VITALS: BP 155/43
[2025-07-18] MEDS: OPDIVO 136 MG IV ×2 (10:23)
[2025-07-24 14:36] LABS: Hematocrit 27.5 % (37.0-47.0); Hemoglobin 9.2 g/dL (12.0-16.0); Mean Corp Hgb Conc. 33.5 g/dL (33.0-37.0); Mean Corpuscular Volume 106.2 fL (81.0-99.0); Platelet Count 68 10^3/uL (130-400); Red Cell Dist. Width 15.0 % (11.5-14.5)
[2025-07-24 16:12] LABS: ALT (SGPT) 13 U/L (0-35); AST (SGOT) 24 U/L (14-36); Albumin 4.1 g/dl (3.5-5.0); Alkaline Phosphatase 122 U/L (38-126); Blood Urea Nitrogen 13 mg/dl (7-17); Calcium 8.8 mg/dl (8.4-10.2); Carbon Dioxide 22 mmol/L (22-30); Chloride 109 mmol/L (98-107); Glucose 220 mg/dl (70-99); Potassium 4.5 mmol/L (3.5-5.1); Sodium 138 mmol/L (135-145); Total Protein 6.8 g/dl (6.3-8.2); eGFR > 60.00
[2025-07-24 16:44] LABS: TSH 6.30 uIU/ml (0.47-4.68)
[2025-07-31 14:14] LABS: Hematocrit 26.3 % (37.0-47.0); Hemoglobin 9.2 g/dL (12.0-16.0); Mean Corp Hgb Conc. 35.0 g/dL (33.0-37.0); Mean Corpuscular Volume 103.1 fL (81.0-99.0); Platelet Count 84 10^3/uL (130-400); Red Cell Dist. Width 14.7 % (11.5-14.5)
[2025-07-31 16:01] LABS: ALT (SGPT) 13 U/L (0-35); AST (SGOT) 24 U/L (14-36); Albumin 4.4 g/dl (3.5-5.0); Alkaline Phosphatase 86 U/L (38-126); Blood Urea Nitrogen 21 mg/dl (7-17); Calcium 9.3 mg/dl (8.4-10.2); Carbon Dioxide 21 mmol/L (22-30); Chloride 109 mmol/L (98-107); Glucose 180 mg/dl (70-99); Potassium 4.3 mmol/L (3.5-5.1); Sodium 140 mmol/L (135-145); Total Protein 7.2 g/dl (6.3-8.2); eGFR > 60.00
[2025-07-31 16:29] LABS: TSH 5.44 uIU/ml (0.47-4.68)
== END 2025-07-31 14:32 | disposition home or self-care (01) ==
LOC: OID 14:24
PROVIDERS: ATTENDING PHYSICIAN Internal Medicine Hematology & Oncology; FAMILY PHYSICIAN Family Medicine
DX: C34.11 Malignant neoplasm of upper lobe, right bronchus or lung (principal); Z51.11 Encounter for antineoplastic chemotherapy (principal); C78.7 Secondary malignant neoplasm of liver and intrahepatic bile duct; C79.51 Secondary malignant neoplasm of bone; D69.49 Other primary thrombocytopenia; D69.6 Thrombocytopenia, unspecified; G61.81 Chronic inflammatory demyelinating polyneuritis; Z87.891 Personal history of nicotine dependence
CPT/HCPCS: 36415; 80053; 84443; 85025; 96367; 96372; 96375; 96413; 96417; J1453; J2469; J9045; J9264; J9299; Q5122

== ENCOUNTER 2025-08-30 14:16 | Outpatient (RCR) | payer OTHER, SELFPAY ==
[2025-08-07 14:48] LABS: Hematocrit 28.5 % (37.0-47.0); Hemoglobin 10.0 g/dL (12.0-16.0); Mean Corp Hgb Conc. 35.1 g/dL (33.0-37.0); Mean Corpuscular Volume 100.4 fL (81.0-99.0); Platelet Count 87 10^3/uL (130-400); Red Cell Dist. Width 14.0 % (11.5-14.5)
[2025-08-07 15:55] LABS: ALT (SGPT) 13 U/L (0-35); AST (SGOT) 23 U/L (14-36); Albumin 4.4 g/dl (3.5-5.0); Alkaline Phosphatase 92 U/L (38-126); Blood Urea Nitrogen 26 mg/dl (7-17); Calcium 9.1 mg/dl (8.4-10.2); Carbon Dioxide 23 mmol/L (22-30); Chloride 105 mmol/L (98-107); Glucose 342 mg/dl (70-99); Potassium 4.5 mmol/L (3.5-5.1); Sodium 136 mmol/L (135-145); Total Protein 7.1 g/dl (6.3-8.2); eGFR > 60.00
[2025-08-08 08:55] VITALS: BP 153/54
[2025-08-08] MEDS: OPDIVO 136 MG IV ×2 (09:07)
[2025-08-08] MEDS: YERVOY 61.42 MG IV (09:43)
[2025-08-14 15:12] LABS: Hematocrit 29.7 % (37.0-47.0); Hemoglobin 10.4 g/dL (12.0-16.0); Mean Corp Hgb Conc. 35.0 g/dL (33.0-37.0); Mean Corpuscular Volume 100.0 fL (81.0-99.0); Platelet Count 91 10^3/uL (130-400); Red Cell Dist. Width 13.4 % (11.5-14.5)
[2025-08-14 16:26] LABS: ALT (SGPT) 12 U/L (0-35); AST (SGOT) 21 U/L (14-36); Albumin 4.3 g/dl (3.5-5.0); Alkaline Phosphatase 78 U/L (38-126); Blood Urea Nitrogen 24 mg/dl (7-17); Calcium 9.4 mg/dl (8.4-10.2); Carbon Dioxide 23 mmol/L (22-30); Chloride 108 mmol/L (98-107); Glucose 204 mg/dl (70-99); Potassium 4.5 mmol/L (3.5-5.1); Sodium 138 mmol/L (135-145); Total Protein 6.9 g/dl (6.3-8.2); eGFR 56.95
[2025-08-14 16:57] LABS: TSH 2.46 uIU/ml (0.47-4.68)
[2025-08-21 14:30] LABS: Hematocrit 29.0 % (37.0-47.0); Hemoglobin 10.2 g/dL (12.0-16.0); Mean Corp Hgb Conc. 35.2 g/dL (33.0-37.0); Mean Corpuscular Volume 98.6 fL (81.0-99.0); Platelet Count 79 10^3/uL (130-400); Red Cell Dist. Width 12.9 % (11.5-14.5)
[2025-08-21 15:19] LABS: ALT (SGPT) 12 U/L (0-35); AST (SGOT) 20 U/L (14-36); Albumin 4.2 g/dl (3.5-5.0); Alkaline Phosphatase 80 U/L (38-126); Blood Urea Nitrogen 19 mg/dl (7-17); Calcium 9.0 mg/dl (8.4-10.2); Carbon Dioxide 23 mmol/L (22-30); Chloride 107 mmol/L (98-107); Glucose 317 mg/dl (70-99); Iron 160 ug/dl (37-170); Potassium 4.4 mmol/L (3.5-5.1); Sodium 133 mmol/L (135-145); Total Protein 6.8 g/dl (6.3-8.2); eGFR 50.80
[2025-08-21 15:28] LABS: Total Iron Binding Capacity 333 ug/dl (265-497)
[2025-08-21 15:53] LABS: Ferritin 335.0 ng/ml (11.1-264.0)
[2025-08-28 14:12] LABS: Hematocrit 28.9 % (37.0-47.0); Hemoglobin 10.1 g/dL (12.0-16.0); Mean Corp Hgb Conc. 34.9 g/dL (33.0-37.0); Mean Corpuscular Volume 97.3 fL (81.0-99.0); Platelet Count 81 10^3/uL (130-400); Red Cell Dist. Width 13.2 % (11.5-14.5)
[2025-08-28 14:26] LABS: ALT (SGPT) 13 U/L (0-35); AST (SGOT) 23 U/L (14-36); Albumin 4.4 g/dl (3.5-5.0); Alkaline Phosphatase 59 U/L (38-126); Blood Urea Nitrogen 22 mg/dl (7-17); Calcium 9.3 mg/dl (8.4-10.2); Carbon Dioxide 22 mmol/L (22-30); Chloride 106 mmol/L (98-107); Glucose 191 mg/dl (70-99); Iron 102 ug/dl (37-170); Potassium 4.3 mmol/L (3.5-5.1); Sodium 138 mmol/L (135-145); Total Protein 7.1 g/dl (6.3-8.2); eGFR 56.95
[2025-08-28 14:31] LABS: Absolute Neutrophils -Man Diff 2.0 10^3/uL (1.4-6.5); Normal RBC Morphology Yes; Platelets Checked Yes
[2025-08-28 14:32] LABS: Total Cells Counted 100
[2025-08-28 14:35] LABS: Total Iron Binding Capacity 344 ug/dl (265-497)
[2025-08-28 14:57] LABS: TSH 0.97 uIU/ml (0.47-4.68)
[2025-08-28 15:01] LABS: Ferritin 384.0 ng/ml (11.1-264.0)
[2025-08-29 09:00] VITALS: BP 147/72
[2025-08-29] MEDS: OPDIVO 136 MG IV ×2 (09:58)
[2025-08-29] MEDS: ALOXI 5 MG IV (10:38)
[2025-08-29] MEDS: EMEND 150 MG IV (10:38)
[2025-08-29] MEDS: PEPCID 52 MG IV (11:16)
[2025-08-29] MEDS: DECADRON 51 MG IV (11:45)
[2025-08-29] MEDS: ABRAXANE 22.6 MG IV (12:22)
[2025-08-29 13:04] VITALS: BP 122/46
[2025-08-30 14:30] VITALS: BP 143/40
[2025-08-30] MEDS: NYVEPRIA 6 MG SC (14:44)
== END 2025-08-31 23:59 | disposition home or self-care (01) ==
LOC: OID 14:16
PROVIDERS: Nurse Practitioner Adult Health; ATTENDING PHYSICIAN Internal Medicine Hematology & Oncology; FAMILY PHYSICIAN Family Medicine; REFERRING PHYSICIAN Specialist
DX: C34.11 Malignant neoplasm of upper lobe, right bronchus or lung (principal); C78.7 Secondary malignant neoplasm of liver and intrahepatic bile duct; C79.51 Secondary malignant neoplasm of bone; D69.6 Thrombocytopenia, unspecified; D69.49 Other primary thrombocytopenia; R80.9 Proteinuria, unspecified; G61.81 Chronic inflammatory demyelinating polyneuritis; Z51.11 Encounter for antineoplastic chemotherapy; Z87.891 Personal history of nicotine dependence
CPT/HCPCS: 36415; 80053; 82570; 82728; 83540; 83550; 84156; 84443; 85025; 96367; 96372; 96375; 96413; 96417; J1453; J2469; J9228; J9264; J9299; Q5122

== ENCOUNTER 2025-09-19 08:30 | Outpatient (RCR) | payer OTHER, SELFPAY ==
[2025-09-04 14:37] LABS: Hematocrit 29.6 % (37.0-47.0); Hemoglobin 10.3 g/dL (12.0-16.0); Mean Corp Hgb Conc. 34.8 g/dL (33.0-37.0); Mean Corpuscular Volume 100.3 fL (81.0-99.0); Platelet Count 108 10^3/uL (130-400); Red Cell Dist. Width 13.4 % (11.5-14.5)
[2025-09-04 15:34] LABS: ALT (SGPT) 12 U/L (0-35); AST (SGOT) 20 U/L (14-36); Albumin 4.1 g/dl (3.5-5.0); Alkaline Phosphatase 101 U/L (38-126); Blood Urea Nitrogen 21 mg/dl (7-17); Calcium 9.4 mg/dl (8.4-10.2); Carbon Dioxide 25 mmol/L (22-30); Chloride 103 mmol/L (98-107); Glucose 285 mg/dl (70-99); Potassium 4.6 mmol/L (3.5-5.1); Sodium 134 mmol/L (135-145); Total Protein 6.9 g/dl (6.3-8.2); eGFR 56.95
[2025-09-04 16:05] LABS: TSH 2.74 uIU/ml (0.47-4.68)
[2025-09-11 13:26] LABS: Hematocrit 31.1 % (37.0-47.0); Hemoglobin 10.6 g/dL (12.0-16.0); Mean Corp Hgb Conc. 34.1 g/dL (33.0-37.0); Mean Corpuscular Volume 101.0 fL (81.0-99.0); Platelet Count 89 10^3/uL (130-400); Red Cell Dist. Width 13.5 % (11.5-14.5)
[2025-09-11 14:07] LABS: ALT (SGPT) 12 U/L (0-35); AST (SGOT) 21 U/L (14-36); Albumin 4.1 g/dl (3.5-5.0); Alkaline Phosphatase 87 U/L (38-126); Blood Urea Nitrogen 19 mg/dl (7-17); Calcium 9.0 mg/dl (8.4-10.2); Carbon Dioxide 24 mmol/L (22-30); Chloride 105 mmol/L (98-107); Glucose 295 mg/dl (70-99); Potassium 4.6 mmol/L (3.5-5.1); Sodium 137 mmol/L (135-145); Total Protein 6.8 g/dl (6.3-8.2); eGFR > 60.00
[2025-09-11 14:35] LABS: TSH 1.28 uIU/ml (0.47-4.68)
[2025-09-18 14:41] LABS: Hematocrit 29.6 % (37.0-47.0); Hemoglobin 10.2 g/dL (12.0-16.0); Mean Corp Hgb Conc. 34.5 g/dL (33.0-37.0); Mean Corpuscular Volume 100.3 fL (81.0-99.0); Platelet Count 88 10^3/uL (130-400); Red Cell Dist. Width 13.6 % (11.5-14.5)
[2025-09-18 16:00] LABS: ALT (SGPT) 12 U/L (0-35); AST (SGOT) 21 U/L (14-36); Albumin 4.1 g/dl (3.5-5.0); Alkaline Phosphatase 81 U/L (38-126); Blood Urea Nitrogen 30 mg/dl (7-17); Calcium 8.9 mg/dl (8.4-10.2); Carbon Dioxide 25 mmol/L (22-30); Chloride 104 mmol/L (98-107); Glucose 208 mg/dl (70-99); Potassium 4.7 mmol/L (3.5-5.1); Sodium 135 mmol/L (135-145); Total Protein 6.6 g/dl (6.3-8.2); eGFR 50.80
[2025-09-18 16:28] LABS: TSH 0.89 uIU/ml (0.47-4.68)
[2025-09-19 08:35] VITALS: BP 93/53
[2025-09-19] MEDS: OPDIVO 136 MG IV ×2 (09:00)
[2025-09-19] MEDS: YERVOY 61.42 MG IV (09:36)
== END 2025-09-20 10:38 | disposition home or self-care (01) ==
LOC: OID 08:30
PROVIDERS: ATTENDING PHYSICIAN Internal Medicine Hematology & Oncology; FAMILY PHYSICIAN Family Medicine; REFERRING PHYSICIAN Specialist
DX: Z51.11 Encounter for antineoplastic chemotherapy (principal); C34.11 Malignant neoplasm of upper lobe, right bronchus or lung; C78.7 Secondary malignant neoplasm of liver and intrahepatic bile duct; D69.49 Other primary thrombocytopenia; C79.51 Secondary malignant neoplasm of bone; R80.9 Proteinuria, unspecified; D69.6 Thrombocytopenia, unspecified; G61.81 Chronic inflammatory demyelinating polyneuritis; Z87.891 Personal history of nicotine dependence
CPT/HCPCS: 36415; 80053; 84443; 85025; 96413; 96417; J9228; J9299

== ENCOUNTER → 2025-09-26 09:11 | Outpatient (REF) | payer OTHER, SELFPAY | LOC: PET 09:11 | PROVIDERS: ATTENDING PHYSICIAN Internal Medicine Hematology & Oncology | DX: C34.11 Malignant neoplasm of upper lobe, right bronchus or lung (principal) | CPT/HCPCS: 78815; A9552 ==

== ENCOUNTER 2025-10-07 03:22 | Inpatient (IN) | payer OTHER, SELFPAY ==
[2025-10-06 19:36] VITALS: BP 124/52
[2025-10-06 19:44] LABS: Glucose - Point of Care 131 mg/dl (70-99)
[2025-10-06] MEDS: NSS 1000 IV (21:20)
[2025-10-06] MEDS: DILAUDID 0.5 MG IV (21:21)
[2025-10-06] MEDS: ZOFRAN 4 MG IV (21:22)
[2025-10-06 21:28] VITALS: BP 120/49
[2025-10-06 21:30] VITALS: BP 121/47
[2025-10-06 21:35] LABS: Hematocrit 29.4 % (37.0-47.0); Hemoglobin 10.9 g/dL (12.0-16.0); Mean Corp Hgb Conc. 37.1 g/dL (33.0-37.0); Mean Corpuscular Volume 90.7 fL (81.0-99.0); Nucleated Red Blood Cells % 0 %; Platelet Count 121 10^3/uL (130-400); Red Cell Dist. Width 13.1 % (11.5-14.5)
[2025-10-06 21:44] LABS: ALT (SGPT) 14 U/L (0-35); AST (SGOT) 36 U/L (14-36); Albumin 3.9 g/dl (3.5-5.0); Alkaline Phosphatase 50 U/L (38-126); Blood Urea Nitrogen 21 mg/dl (7-17); Calcium 9.4 mg/dl (8.4-10.2); Carbon Dioxide 22 mmol/L (22-30); Chloride 101 mmol/L (98-107); Glucose 94 mg/dl (70-99); Magnesium 1.6 mg/dl (1.6-2.3); Potassium 4.4 mmol/L (3.5-5.1); Sodium 131 mmol/L (135-145); Total Protein 6.8 g/dl (6.3-8.2); eGFR 45.76
[2025-10-06 22:00] VITALS: BP 107/47
[2025-10-06 22:30] VITALS: BP 112/49
[2025-10-06 23:00] VITALS: BP 100/53
--- NOTE | 2025-10-06 23:12 | ED.GENMED ---
History of Present Illness
<ONDINA Guzman Jr. Last Filed: 10/07/25 01:56>
General
Chief Complaint: Fatigue
Source: patient
Exam Limitations: none
Time Seen by Provider: 10/06/25 20:31
Nursing documentation reviewed up to this point in time: agreed with
History of Present Illness
History of Present Illness:
Patient is an 80-year-old female past medical history of lung cancer not currently on treatment last immunotherapy was 3 weeks ago and chemotherapy was 5 weeks ago, aortic stenosis hypertension hyperlipidemia presenting to the emergency department
today with concerns of generalized weakness fatigue body aches ongoing for multiple weeks also some nausea intermittent vomiting. Denies any fevers or upper respiratory symptoms.
Review of Systems
<ONDINA Guzman Jr. Last Filed: 10/07/25 01:56>
Review of Systems
Allergies reviewed?: Yes
All Other Systems: ROS reviewed and negative except as documented in HPI and ROS
Phy Exam
<ONDINA Guzman Jr. Last Filed: 10/07/25 01:56>
Physical Exam
Physical Exam:
GENERAL: Alert , in no apparent distress
EYE: pupils equal and reactive
NECK: Supple, no significant adenopathy.
ENT: o/p clr, mmm.
CARDIAC: Regular rate and rhythm .
LUNGS: Clear breath sounds bilaterally, no acute respiratory distress, no wheezes/rales/rhonchi
ABDOMEN: Soft, without focal tenderness, no r/g, no cvat
NEUROLOGICAL: Alert and oriented, no focal neuro deficits
SKIN: Warm and dry, skin intact.
MUSCULOSKELETAL: No edema, well perfused.
PSYCH: Normal and appropriate interaction.
Course
<ONDINA Guzman Jr. Last Filed: 10/07/25 01:56>
Orders/Labs/Results
Orders:
Orders
12/06/25 21:04
EKG [Electrocardiogram (*1)] Urgent
Reason for Study: Fatigue / Weakness
Urinalysis Reflex To Culture Urgent
Date Specimen was Collected: 10/07/25
Time Specimen was Collected: 00:11
0.9% Sodium Chloride 1000 ml [Nss] 1,000 ml IV BOLUS
HYDROmorphone [Dilaudid] 0.5 mg IV NOW STA
Ondansetron Injectable [Zofran] 4 mg IV NOW STA
10/06/25 21:05
EKG- Treatment ONCE
10/06/25 21:18
CBC/With Diff [Complete Blood Count/With Diff] Urgent
CMP [Comprehensive Metabolic Panel] Urgent
Magnesium Urgent
TSH Reflex To Free T4 Urgent
10/06/25 22:46
COVID-19 Antigen Urgent
Source: Nasal Swab
Influenza A+B Rapid Molecular Urgent
KEEGAN Source: Nasal Swab
Specimen Description:
10/06/25 23:10
CT Chest PE Study Urgent
Comment:
Reason For Exam: hypoxia
10/07/25 00:12
Urine Microscopic Reflex Cult Urgent
Urine Culture Urgent
KEEGAN Source: U
Specimen Description:
Date Specimen was Collected: 10/07/25
Time Specimen was Collected: 00:11
10/07/25 01:47
CefTRIAXone [Rocephin] 1,000 mg IV NOW STA
Dexamethasone Sod Phosphate [Decadron] 10 mg IV NOW STA
Ipratropium/Albuterol Sulfate [Duoneb] 3 ml INH R NOW ONE
Abnormal Lab Results
10/06/25 10/06/25 10/07/25
19:42 21:18 00:12
WBC 4.0 L 10^3/uL
(4.8-10.8)
RBC 3.24 L 10^6/uL
(4.20-5.40)
Hgb 10.9 L g/dL
(12.0-16.0)
Hct 29.4 L %
(37.0-47.0)
MCH 33.6 H pg
(27.0-31.0)
MCHC 37.1 H g/dL
(33.0-37.0)
Plt Count 121 L 10^3/uL
(130-400)
Absolute Lymphs (auto) 1.0 L 10^3/uL
(1.2-3.4)
Monocytes % 9.7 H %
(1.7-9.3)
Sodium 131 L mmol/L
(135-145)
BUN 21 H mg/dl
(7-17)
Creatinine 1.2 H mg/dL
(0.6-1.0)
Ur Occult Blood Reflex 1+ A
(Negative)
Leukocyte Esterase Rfl 3+ A
(Negative)
Urine RBC 3-6 A /HPF
(0-2)
Urine WBC (Reflex) 70-80 A /HPF
(0-5)
Urine Bacteria (Reflex) Moderate A
(Negative)
Urine Albumin (Reflex) 2+ A
(Neg - Trace)
POC Glucose 131 H mg/dl
(70-99)
10/06/25 21:18
10/06/25 21:18
Vital Signs
Initial and Last Documented VS:
Initial Vital Signs
Temp Pulse Resp BP Pulse Ox
98.4 F 76 16 124/52 96
10/06/25 19:36 10/06/25 19:36 10/06/25 19:36 10/06/25 19:36 10/06/25 19:36
Last Documented Vital Signs
Temp Pulse Resp BP Pulse Ox
98.4 F 76 16 115/77 94
10/06/25 19:36 10/06/25 19:36 10/06/25 19:36 10/07/25 01:30 10/07/25 01:30
<Yogi Nava, - Last Filed: 10/07/25 01:41>
Orders/Labs/Results
Orders:
Orders
10/06/25 21:04
EKG [Electrocardiogram (*1)] Urgent
Reason for Study: Fatigue / Weakness
Urinalysis Reflex To Culture Urgent
Date Specimen was Collected: 10/07/25
Time Specimen was Collected: 00:11
0.9% Sodium Chloride 1000 ml [Nss] 1,000 ml IV BOLUS
HYDROmorphone [Dilaudid] 0.5 mg IV NOW STA
Ondansetron Injectable [Zofran] 4 mg IV NOW STA
10/06/25 21:05
EKG- Treatment ONCE
10/06/25 21:18
CBC/With Diff [Complete Blood Count/With Diff] Urgent
CMP [Comprehensive Metabolic Panel] Urgent
Magnesium Urgent
TSH Reflex To Free T4 Urgent
10/06/25 22:46
COVID-19 Antigen Urgent
Source: Nasal Swab
Influenza A+B Rapid Molecular Urgent
KEEGAN Source: Nasal Swab
Specimen Description:
10/06/25 23:10
CT Chest PE Study Urgent
Comment:
Reason For Exam: hypoxia
10/07/25 00:12
Urine Microscopic Reflex Cult Urgent
Urine Culture Urgent
KEEGAN Source: U
Specimen Description:
Date Specimen was Collected: 10/07/25
Time Specimen was Collected: 00:11
10/07/25 01:47
CefTRIAXone [Rocephin] 1,000 mg IV NOW STA
Dexamethasone Sod Phosphate [Decadron] 10 mg IV NOW STA
Ipratropium/Albuterol Sulfate [Duoneb] 3 ml INH R NOW ONE
Abnormal Lab Results
10/06/25 10/06/25 10/07/25
19:42 21:18 00:12
WBC 4.0 L 10^3/uL
(4.8-10.8)
RBC 3.24 L 10^6/uL
(4.20-5.40)
Hgb 10.9 L g/dL
(12.0-16.0)
Hct 29.4 L %
(37.0-47.0)
MCH 33.6 H pg
(27.0-31.0)
MCHC 37.1 H g/dL
(33.0-37.0)
Plt Count 121 L 10^3/uL
(130-400)
Absolute Lymphs (auto) 1.0 L 10^3/uL
(1.2-3.4)
Monocytes % 9.7 H %
(1.7-9.3)
Sodium 131 L mmol/L
(135-145)
BUN 21 H mg/dl
(7-17)
Creatinine 1.2 H mg/dL
(0.6-1.0)
Ur Occult Blood Reflex 1+ A
(Negative)
Leukocyte Esterase Rfl 3+ A
(Negative)
Urine RBC 3-6 A /HPF
(0-2)
Urine WBC (Reflex) 70-80 A /HPF
(0-5)
Urine Bacteria (Reflex) Moderate A
(Negative)
Urine Albumin (Reflex) 2+ A
(Neg - Trace)
POC Glucose 131 H mg/dl
(70-99)
10/06/25 21:18
10/06/25 21:18
Vital Signs
Initial and Last Documented VS:
Initial Vital Signs
Temp Pulse Resp BP Pulse Ox
98.4 F 76 16 124/52 96
10/06/25 19:36 10/06/25 19:36 10/06/25 19:36 10/06/25 19:36 10/06/25 19:36
Last Documented Vital Signs
Temp Pulse Resp BP Pulse Ox
98.4 F 76 16 115/77 94
10/06/25 19:36 10/06/25 19:36 10/06/25 19:36 10/07/25 01:30 10/07/25 01:30
<Shahid Massey Jr., PA-C - Last Filed: 10/07/25 01:56>
MDM/Problems Addressed
MDM/Problems Addressed:
80-year-old female presenting to the emergency department today with concerns of generalized weakness fatigue. On arrival vital signs are normal patient in no distress. Labs at patient's baseline she was given medication for pain which improved
symptoms dramatically. Of note on arrival pulse ox was dropping to the 80s she was requiring oxygen. Typically does not use oxygen at home. Labs were unremarkable here CT PE was ordered due to the constant persisting hypoxia. This did not show
any emergent findings. Urinalysis showing white blood cells but did show significant swabs epithelial cells. She was given dose of antibiotic but unclear whether there is true UTI at this point. Additionally patient will be admitted due to the
low pulse ox for further monitoring and consultation.
<Shahid Massey Jr., PA-C - Last Filed: 10/07/25 01:56>
*Pulse Oximetry
SaO2: 89
Oxygen Mode of Delivery: Room air
*Critical Care Note
Total Time (30-74mins, 75-104mins- exclusive of procedures): Not Applicable
<Yogi Nava DO - Last Filed: 10/07/25 01:41>
*Pulse Oximetry
Patient hypoxic: yes
ED Attending Note
<Shahid Massey Jr., PA-C - Last Filed: 10/07/25 01:56>
-
Portions of this chart may have been created with voice recognition software.� Occasional wrong word or��sound alike� substitutions may have occurred due to the inherent limitations of voice recognition software.
<Yogi Nava, DO - Last Filed: 10/07/25 01:41>
ED Attending Note
Patient seen and examined by attending physician: Yes
I performed the substantive portion of visit, reviewed & personally made and approve the management plan that is documented in note by myself or VEE.: Yes
Discharge Plan
Departure
Patient Disposition: Admit
Date of Disposition: 10/07/25
Time of Disposition: 01:55
Admit to: Telemetry
Admit to doctor: Xochitl
Presentation/result/management discussed w/ accepting MD/DO: Hospitalist
Patient with high blood pressure during this ER visit?: No
Condition: Good
Covid-19: Not Applicable
Discharge Problem:
Hypoxia, Generalized weakness
Prescriptions:
No Action
Ozempic 1 mg/dose (4 mg/3 mL) Pen Injector
1 mg SC QWEEK
Rx Instructions:
Q
benazepril 40 mg Tablet
40 mg PO BID
fluoxetine 40 mg Capsule
40 mg PO NOON
amlodipine 5 mg Tablet
10 mg PO HS
levothyroxine 100 mcg Tablet
100 mcg PO NOON
Rx Instructions:
added an extra 100mcg weekly on Wednesdays
zolpidem [Ambien] 5 mg Tablet
2.5 mg PO HS
albuterol sulfate 90 mcg/actuation Hfa Aerosol Inhaler
1 inh INHALATION PRN PRN (Reason: wheezing,sob)
Vitamin D90-Uukiz Tablet
1 tab PO .WEEKLY
fenofibrate 160 mg Tablet
160 mg PO HS
insulin glargine [Lantus Solostar U-100 Insulin] 100 unit/mL (3 mL) Insulin Pen
32 unit SC BID
Rx Instructions:
NOON AND PM
paclitaxel protein-bound [Abraxane] 100 mg Suspension For Reconstitution
113 mg IV .Q 3 WEEKS
Patient Comments:
. schedule varies
Opdivo
360 mg IV .Q3 WEEKS
Yervoy
57.1 mg IV .[id number]
carboplatin
286 mg IV .[id number]
Patient Comments:
schedule varies
Referrals:
Julián Evans MD [Family Provider, [facility]]
Interventions
Interventions:
*Risk Screen - Suicide Last Done: 10/06/25 21:31
*General Assessment Last Done: 10/06/25 21:31
*Neglect/Abuse Screening Last Done: 10/06/25 21:31
*ED COVID-19 Vaccine History Last Done: 10/06/25 21:31
*ED Influenza Vaccine History Last Done: 10/06/25 21:31
[facility] Fall Risk Assessment Tool Last Done: 10/06/25 19:35
Discharge Date and Time
Print Language: YAKUT
[2025-10-06 23:15] LABS: COVID-19 Antigen Negative (Negative)
[2025-10-07] VITALS (10 sets, daily range): BP systolic 100–134; BP diastolic 46–77; O2SAT 97; BMI 20.5
[2025-10-07 00:25] LABS: Urine Character Slightly Cloudy (Clear)
[2025-10-07 00:59] LABS: Urine Squamous Cell >30 /LPF (Few)
[2025-10-07 01:00] LABS: Urine Urothelial Cell >30 /LPF (FEW)
[2025-10-07 01:03] LABS: Urine White Cell 70-80 /HPF (0-5)
--- NOTE | 2025-10-07 02:07 | HPS.HSE ---
Family Physician
-
Family Physician: Julián Evans
Chief Complaint
-
Fatigue
History of Present Illness
Patient is a 80-year-old female with past medical history significant for recent diagnosis of squamous cell lung cancer currently on chemotherapy with ipilimumab, nivolumab, Abraxane and carboplatin, history of tuberculosis in the 1970s,
hypothyroid, insulin-dependent diabetes, hypertension, hyperlipidemia presenting to the emergency department with multiple complaints including, fatigue, generalized bony aches and pain, decreased appetite, nausea and vomiting.
She last had chemotherapy about 5 weeks ago.. She could not continue due to thrombocytopenia. After chemotherapy she reported that she gets colony-stimulating agent which does cause a few days of bone pain and then resolves. She reported that she
had immunotherapy about 3 weeks ago. She is pending for chemotherapy in 1 to 2 weeks.
Patient reported that she was seen by cardiology few days ago without any acute findings. She also saw pulmonary recently and had a lung function test/PFTs showing some abnormalities.
Over the last few days she reports extreme fatigue. She reports no significant weakness when she is not even able to walk across her room without feeling severely short of breath and fatigued. She had no chest pain. She had no shortness of breath
at rest. There was no associated chest pain or diaphoresis. She had no palpitations. She has no lower extremity swelling. She was not coughing and denies any fevers or chills. She has no known sick contacts. She reported that she had a recent
pruritic rash was seen by dermatology s/p biopsy showing no fungal and no diagnostic finding.
She denied any joint swelling, erythema or tenderness. She reports decreased appetite and decreased p.o. intake in the setting of ongoing nausea but denies any abdominal pain denies any vomiting or diarrhea. She did vomit on arrival in the
emergency department once. She denies abdominal bloating.
In the emergency department the patient was afebrile, blood pressure was 150/37, pulse was 76 and oxygen saturation was 94%. ECG was normal sinus rhythm at a rate of [address] or T wave changes. CBC was a hemoglobin of 10.9 which is
the same as previous and otherwise normal CBC. Electrolytes BUN/creatinine were unremarkable. TSH was within normal range. LFTs were all normal. Her UA is contaminated but positive for bacteria, leukocyte esterase and WBCs.
CT of the chest with PE protocol shows interval decrease in size of the mass at the right posterior costophrenic angle, patchy ground glass opacities in the lung bases superimposed on background of reticulation which may reflect atelectasis,
multifocal infection superimposed background of chronic lung disease such as pulmonary fibrosis.
PET/CT September 26 showing:
1. 1.2 cm right lower lobe pulmonary nodule demonstrating elevated FDG uptake consistent with RECURRENT RIGHT LOWER LOBE LUNG CANCER.
2. 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
3. No evidence for new distant FDG avid metastatic disease.
4. Portal hypertension with moderate splenomegaly.
Medical History
Past Medical History
Past Medical History: Reports Cancer (Squamous cell cancer, history of liver cancer, skin cancer), HTN, Hypercholesterolemia, Hypothyroidism and IDDM
Past Surgical History: Reports Cholecystectomy and
Social History
Tobacco: Non-smoker
Alcohol: None
Drug: None
Family History
Family History: Not pertinent
Allergies / Home Medications
Allergies reflects when Allergies were last updated in [employer].
Home Medications with original date entered in [employer]
Allergy/Medication List:
Allergies
Allergy/AdvReac Type Severity Reaction Status Date / Time
amoxicillin Allergy gastro Verified 10/06/25 19:39
issues -
bleeding
and pain
ciprofloxacin (From Cipro) Allergy Itching Verified 10/06/25 19:39
erythromycin base Allergy Itching Verified 10/06/25 19:39
Sulfa (Sulfonamide Allergy swelling,itching,difficulty Verified 10/06/25 19:39
Antibiotics) breathing
antibiotic creams/drops Allergy swelling,extreme Uncoded 10/06/25 19:39
itching
vycril sutures Allergy rejection Uncoded 10/06/25 19:39
- area
never
healed
Home Medications
albuterol sulfate 90 mcg/actuation aerosol inhaler 1 inh inhalation PRN PRN wheezing,sob 01/17/25
amlodipine 5 mg tablet 10 mg PO HS 01/17/25
cyanocobalamin-liver extract tablet 1 tab PO .WEEKLY 01/17/25
fenofibrate 160 mg tablet 160 mg PO HS 01/17/25
fluoxetine 40 mg capsule 40 mg PO NOON 01/17/25
insulin glargine 100 unit/mL (3 mL) subcutaneous pen (Lantus Solostar U-100 Insulin) 32 unit SC BID 01/17/25
levothyroxine 100 mcg tablet 100 mcg PO NOON 01/17/25
zolpidem 5 mg tablet (Ambien) 2.5 mg PO HS 01/17/25
benazepril 40 mg tablet 40 mg PO BID 01/18/25
semaglutide 1 mg/dose (4 mg/3 mL) subcutaneous pen injector (Ozempic) 1 mg SC QWEEK 01/18/25
Opdivo 360 mg IV .Q3 WEEKS 03/27/25
Yervoy 57.1 mg IV .[id number] 03/27/25
carboplatin 286 mg IV .[id number] 03/27/25
paclitaxel protein-bound 100 mg intravenous suspension (Abraxane) 113 mg IV .Q 3 WEEKS 03/27/25
Review of Systems
-
History Source: Patient
Constitutional: Reports Weight Loss, Fatigue and Sleep Disturbance (Increased somnolence)
EENT: Reports No Symptoms
Respiratory: Reports No Symptoms
Cardiac: Denies Chest Pain, Diaphoresis, Palpitations or Syncope
Abdomen/GI: Reports Nausea and Anorexia; Denies Diarrhea, Constipated or Pain
: Reports No Symptoms
Musculoskeletal: Denies Muscle Pain, Muscle Stiffness or Edema
Skin: Reports Rash
Neurological: Reports No Symptoms
Endocrine: Reports No Symptoms
Hematologic/Lymphatic: Reports No Symptoms
Psych: Reports No Symptoms
Physical Exam
Vital Signs
Vital Signs
Temp Pulse Resp BP Pulse Ox
98.4 F 76 16 115/77 94
10/06/25 19:36 10/06/25 19:36 10/06/25 19:36 10/07/25 01:30 10/07/25 01:30
Physical Exam
General: Well Developed and Comfortable
HEENT: NormoCephalic, Anicteric, Moist mucous membranes, PERRLA and Oxygen
Respiratory: Clear
Cardiac: S1/S2 and Regular Rhythm; No Murmur, Rub, Peripheral Edema or JVD
Breast: Deferred by me
GI: Soft, Non Tender, Non Distended and Normal Bowel Sounds
Rectal: Deferred by Provider
Genito-urinary: Deferred by me
Musculoskeletal: No Clubbing, No Cyanosis and No Edema
Skin: Warm
Neuro: AO x 3 and Nonfocal/grossly intact
Psych: Calm
Laboratory Results
-
10/06/25 21:18
10/06/25 21:18
Laboratory Results
Total Bilirubin 1.2 mg/dl (0.2-1.3) 10/06/25 21:18
AST 36 U/L (14-36) 10/06/25 21:18
ALT 14 U/L (0-35) 10/06/25 21:18
Alkaline Phosphatase 50 U/L (38-126) 10/06/25 21:18
Data Reviewed
-
CT Scan: Report Reviewed by me
Medical Tests (Nuc Med, Echo, EKG etc): Image Personally Visualized and interpreted
Lab Data: Labs Reviewed by me
Old Records: Reviewed
Impression/Plan
-
IMPRESSION:
80-year-old female with history of lung cancer currently on chemotherapy and immunotherapy including recent paclitaxel, carboplatin 5 weeks ago, ipilimumab, nivolumab and recent immunotherapy presents to the emergency department with a few days of
severe fatigue, nausea, decreased p.o. intake and was found to be hypoxic. Patient's evaluation in the ED was unremarkable. She does appear to have a positive UA but is contaminated. CBC shows normal hemoglobin, electrolytes BUN and creatinine
with essentially baseline. TSH was normal, LFTs was unremarkable. She had a CT of the chest with PE protocol which was negative for PE and did not show patchy ground glass opacities in the lung bases superimposed on pattern of reticulation
consistent with pulmonary fibrosis. A recent PET scan shows a stable lung cancer, severe combined emphysema and interstitial pulmonary fibrosis in both lungs. There was portal hypertension but LFTs are normal here today. She is hypoxic and is
requiring 2 L and maintains a saturation of 95 to 90% on 2 L at rest. Viral testing was negative. She was started on antibiotics in the ED.
PLAN:
Hypoxia�based on her recent PET scan as well as on current CT scan and her prior history, suspect hypoxia is secondary to pulmonary fibrosis with emphysema without any active infection at this time. This may not be enough to explain fatigue but
with oxygen supplementation we can reexamine exercise tolerance and improvement of respiratory status with treatment.
� Admit to MedSurg
� Check procalcitonin
� Hold antibiotics for now pending results of urine culture
� Check Legionella and streptococcal antigens
� pulmonary fibrosis, unlikely this is due to her inflammatory process
� Prednisone 50 mg daily, continue nebs RTC and as needed
- Check BNP, if BNP is negative will give additional fluids
� Patient has a recent echocardiogram which showed preserved EF, mild MR and moderate . There is no overt signs of volume overload currently
� Pulmonary consultation
Hypertension
� Continue benazepril, amlodipine
Diabetes
-Recent decreases in insulin dosage, currently on Lantus 14 units twice daily which we will continue at 10 units twice daily for now
DVT prophylaxis�Lovenox subcu
CODE STATUS�full code
[2025-10-07] MEDS: DECADRON 10 MG IV (02:31)
[2025-10-07] MEDS: ROCEPHIN 1000 MG IV (02:31)
[2025-10-07] MEDS: DUONEB 3 ML INH ×5 (02:31→18:05)
[2025-10-07 07:36] LABS: Hematocrit 28.7 % (37.0-47.0); Hemoglobin 10.1 g/dL (12.0-16.0); Mean Corp Hgb Conc. 35.2 g/dL (33.0-37.0); Mean Corpuscular Volume 93.5 fL (81.0-99.0); Platelet Count 100 10^3/uL (130-400); Red Cell Dist. Width 12.9 % (11.5-14.5)
[2025-10-07 08:03] LABS: Blood Urea Nitrogen 21 mg/dl (7-17); C-Reactive Protein 27.70 mg/L (0.0-10.00); Calcium 9.0 mg/dl (8.4-10.2); Carbon Dioxide 21 mmol/L (22-30); Chloride 104 mmol/L (98-107); Estimated Creatinine Clearance 30 ml/min; Glucose 154 mg/dl (70-99); HDL Cholesterol 26 mg/dl; LDL Cholesterol, Calculated 74 mg/dl; Magnesium 1.7 mg/dl (1.6-2.3); Potassium 4.8 mmol/L (3.5-5.1); Procalcitonin 0.08 ng/ml (0.0-0.25); Sodium 132 mmol/L (135-145); Very Low Density Lipoprotein 30 mg/dl (0-30); eGFR 41.57
[2025-10-07 08:07] LABS: Glucose - Point of Care 207 mg/dl (70-99)
[2025-10-07] MEDS: ZESTRIL 40 MG PO ×2 (08:20→20:55)
[2025-10-07] MEDS: PEPCID 20 MG PO (08:20)
[2025-10-07] MEDS: DELTASONE 40 MG PO (08:20)
[2025-10-07] MEDS: NOVOLOG FLEXPEN-LOW RESISTANCE 2 UNITS SC (08:21)
[2025-10-07] MEDS: LANTUS 0.12 UNITS SC ×2 (08:21→23:50)
--- NOTE | 2025-10-07 10:55 | CM ---
Patient seen at bedside on . Patient states that she lives with her boyfriend in an apartment. Patient has no DME no prior O2. Patient PCP is Dr. Evans and she uses the [facility] in [place] on [address]. Patient plan is home with no needs at
this time. CM will continue to follow for discharge planning needs.
Plan; home with no needs; watch for home O2 needs.
[2025-10-07 11:34] LABS: Glucose - Point of Care 410 mg/dl (70-99)
[2025-10-07 11:34] LABS: Glucose - Point of Care 409 mg/dl (70-99)
--- NOTE | 2025-10-07 11:50 | CON.PUL ---
Consultation
Consultation Request
Date/Time Consultation Requested: 10/07/25
Date/Time Consultation Performed: 10/07/25
Performing Provider: Bailey
Reason for Consultation: Hypoxia
Medical History
-
History of Present Illness:
Patient is a 80-year-old female with past medical history significant for recent diagnosis of squamous cell lung cancer currently on chemotherapy with ipilimumab, nivolumab, Abraxane and carboplatin, history of tuberculosis in the 1970s,
hypothyroid, insulin-dependent diabetes, hypertension, hyperlipidemia presenting to ER with fatigue, generalized malaise, arthralgias, decreased appetite, nausea and vomiting. She last had chemotherapy about 5 weeks ago, which was held due to
thrombocytopenia. She reported that she had immunotherapy about 3 weeks ago. She is pending for chemotherapy in 1 to 2 weeks.
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
In the emergency department the patient was afebrile, blood pressure was 150/37, pulse was 76 and oxygen saturation was 94%. ECG was normal sinus rhythm at a rate of [address] or T wave changes. CBC was a hemoglobin of 10.9 which is
the same as previous and otherwise normal CBC. Electrolytes BUN/creatinine were unremarkable. TSH was within normal range. LFTs were all normal. Her UA is contaminated but positive for bacteria, leukocyte esterase and WBCs. CT of the chest with
PE protocol shows interval decrease in size of the mass at the right posterior costophrenic angle, patchy ground glass opacities in the lung bases superimposed on background of reticulation which may reflect atelectasis, multifocal infection
superimposed background of chronic lung disease such as pulmonary fibrosis.
Past Medical History
Past Medical History: Other (see list below)
Social History
Tobacco: Former Smoker
Alcohol: None
Drug: None
Allergies / Home Medications
Allergies
Allergy/AdvReac Type Severity Reaction Status Date / Time
amoxicillin Allergy gastro Verified 10/06/25 19:39
issues -
bleeding
and pain
ciprofloxacin (From Cipro) Allergy Itching Verified 10/06/25 19:39
erythromycin base Allergy Itching Verified 10/06/25 19:39
Sulfa (Sulfonamide Allergy swelling,itching,difficulty Verified 10/06/25 19:39
Antibiotics) breathing
antibiotic creams/drops Allergy swelling,extreme Uncoded 10/06/25 19:39
itching
vycril sutures Allergy rejection Uncoded 10/06/25 19:39
- area
never
healed
Home Medications
�Medication �Instructions �Recorded �Confirmed �Last Taken �Type
albuterol sulfate 90 mcg/actuation 1 inh inhalation PRN PRN 01/17/25 09/19/25 03/19/25 History
aerosol inhaler wheezing,sob
amlodipine 5 mg tablet 10 mg PO HS 01/17/25 09/19/25 09/18/25 History
cyanocobalamin-liver extract tablet 1 tab PO .WEEKLY 01/17/25 09/19/25 08/28/25 History
fenofibrate 160 mg tablet 160 mg PO HS 01/17/25 09/19/25 09/18/25 History
fluoxetine 40 mg capsule 40 mg PO NOON 01/17/25 09/19/25 09/19/25 History
insulin glargine 100 unit/mL (3 32 unit SC BID 01/17/25 09/19/25 09/19/25 History
mL) subcutaneous pen (Lantus
Solostar U-100 Insulin)
levothyroxine 100 mcg tablet 100 mcg PO NOON 01/17/25 09/19/25 09/19/25 History
zolpidem 5 mg tablet (Ambien) 2.5 mg PO HS 01/17/25 09/19/25 09/18/25 History
benazepril 40 mg tablet 40 mg PO BID 01/18/25 09/19/25 09/19/25 History
semaglutide 1 mg/dose (4 mg/3 mL) 1 mg SC QWEEK 01/18/25 09/19/25 09/13/25 History
subcutaneous pen injector (Ozempic)
Opdivo 360 mg IV .Q3 WEEKS 03/27/25 09/19/25 09/19/25 History
Yervoy 57.1 mg IV .[id number] 03/27/25 09/19/25 09/19/25 History
carboplatin 286 mg IV .[id number] 03/27/25 09/19/25 07/11/25 History
paclitaxel protein-bound 100 mg 113 mg IV .Q 3 WEEKS 03/27/25 09/19/25 08/29/25 History
intravenous suspension (Abraxane)
Review of Systems
Vitals / Labs / Diagnostic Testing
Vital Signs
Temp Pulse Resp BP Pulse Ox
98.6 F 89 24 112/53 93
10/07/25 07:00 10/07/25 08:19 10/07/25 08:19 10/07/25 07:00 10/07/25 10:25
Lab Data
10/07/25 07:16
Microbiology
10/06/25 22:46 Nasal Swab Influenza Types A & B (ZOEY) - Final
Negative for Influenza A & B, NAAT
Negative results must be combined with clinical observations
and patient history.
Nucleic Acid Amplification test (NAAT)performed on the
[employer] platform.
Diagnostic Testing:
Physical Exam
-
HEENT: Normocephalic, Anicteric and Moist Mucous Membranes
Cardiovascular: S1/S2 and Regular Rhythm
Respiratory: Rales and Non-Labored Respirations
GI: Soft, Non Distended and Non Tender
Neurology: Awake, Alert, Oriented and No Motor Deficits
Skin: Warm, Dry and Good Color
General: Comfortable and Other (NAD)
Assessment
-
Patient is a 80-year-old female with past medical history significant for recent diagnosis of squamous cell lung cancer currently on chemotherapy with ipilimumab, nivolumab, Abraxane and carboplatin, history of tuberculosis in the 1970s,
hypothyroid, insulin-dependent diabetes, hypertension, hyperlipidemia presenting to ER with fatigue, generalized malaise, arthralgias, decreased appetite, nausea and vomiting. She last had chemotherapy about 5 weeks ago, which was held due to
thrombocytopenia. 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
In the emergency department the patient was afebrile, blood pressure was 150/37, pulse was 76 and oxygen saturation was 94%. ECG was normal sinus rhythm at a rate of [address] or T wave changes. CBC was a hemoglobin of 10.9 which is
the same as previous and otherwise normal CBC. Electrolytes BUN/creatinine were unremarkable. TSH was within normal range. LFTs were all normal. Her UA is contaminated but positive for bacteria, leukocyte esterase and WBCs. CT of the chest with
PE protocol shows interval decrease in size of the mass at the right posterior costophrenic angle. We are consulted for evaluation.
Acute hypoxic respiratory failure
Stage IV squamous cell ca
Pancytopenia
Hyponatremia, mild
ANTONIA, creatinine 1.3 (BL 0.9�1.0)
Conditions present [employer]
Pulmonary nodules nodule status post bronchoscopy 01/22/2025
Emphysema, normal spirometry
ILD, fibrosis
Dyslipidemia
Depression
Herpes
Diabetes mellitus
Hypothyroidism
Tuberculosis 1970's
Hypertension
Anemia
Transient global amnesia
Cholecystectomy
Caesarean Section(1986)
Right 4th digit(2011)
Tonsillectomy
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
L eye cataract surgery
- Port placement 01/2025
Plan
Hypoxemia noted on arrival, currently saturating 93% on 2L
Home O2 evaluation -- she likely will need new O2 set up
Prior 6MWT in December showing O2 haim 92%
Prior history of lung disease is noted including emphysema, ILD
I suspect she has disease progression of her lung disease (as opposed to lung cancer)
CXR/CT obtained indicating no acute findings on my review, her mass size has decreased compared to prior
There is not any overwhelming evidence of pneumonia or bronchitis
Simultaneously her PCT and proBNP are negative, not suggesting heart failure or infection
I would agree with empiric treatment with prednisone taper
She notes that she already feels improvement
Prior PFT in December does not demonstrate obstructive lung disease but she will need repeat testing as an outpatient
She is overdue for a return visit to pulmonary office, which we will arrange
Prior ECHO results are reviewed indicating normal function
She does have moderate aortic stenosis, I am not overly suspicious for heart failure exacerbation
Will need outpatient pulmonary evaluation in our office for PFTs and 6MWT
Reviewed with patient
Called daughter, by request of patient--did not answer, can try to communicate again tomorrow
If improved by tomorrow, can assess for discharge
Home set up for O2 if indicated
We will follow
Diagnostic Data
Chest X-Ray:
CT Chest 10/06/25-1. No evidence of pulmonary embolism or thoracic aortic dissection.
2. 1.4 cm nodule at the right lung base, which demonstrated FDG uptake on recent prior PET/CT, consistent with recurrent lung carcinoma. Adjacent nodular opacity within the right lower lobe did not demonstrate FDG uptake on prior PET/CT, and may
represent posttreatment change.
3. Moderate interstitial fibrosis. Moderate centrilobular emphysema.
4. Sclerotic lesion within the T3 vertebral body, which is new compared to prior CT dated 04/14/2025, and likely represents osseous metastasis.
PET/CT 09/26/25: IMPRESSION:
1. 1.2 cm right lower lobe pulmonary nodule demonstrating elevated FDG uptake consistent with RECURRENT RIGHT LOWER LOBE LUNG CANCER.
2. 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
3. No evidence for new distant FDG avid metastatic disease.
4. Portal hypertension with moderate splenomegaly.
ECHO 07/17/25: 1. Normal left ventricular chamber size myocardial thickness and systolic function left ventricular ejection fraction 65 to 70%.
2. Moderate aortic stenosis with with peak and mean aortic valve gradients of 49 to 29 mmHg respectively. Mild aortic regurgitation.
3. Compared to a prior echo from July 2024, aortic valve gradients have progressed from 21 and 13 mmHg respectively in that study.
PFT's: Spirometry 01/02/2025: FVC 2.59 L 98%, FEV1 1.87 L 95%, ratio 73 (normal)
Reports and relevant images were personally reviewed.
Total time spent on this consultation __75__ minutes which includes review of history, physical exam, medications, laboratory data, personal review of imaging, extensive review of outpatient records, discussion with care team and respiratory therapy.
[2025-10-07 12:22] LABS: Glucose 386 mg/dl (70-99)
[2025-10-07] MEDS: NOVOLOG FLEXPEN-LOW RESISTANCE 5 UNITS SC (12:26)
[2025-10-07] MEDS: SYNTHROID 100 MCG PO (12:28)
[2025-10-07] MEDS: PROZAC 40 MG PO (12:28)
[2025-10-07] MEDS: ROXICODONE 5 MG PO (12:49)
[2025-10-07 13:08] LABS: Glycohemoglobin (HgbA1c) 6.3 % (4.0-5.9)
[2025-10-07] MEDS: NOVOLOG FLEXPEN 5 UNITS SC ×2 (13:33→17:26)
[2025-10-07 13:48] LABS: Glucose - Point of Care 503 mg/dl (70-99)
--- NOTE | 2025-10-07 14:44 | W.PN.UPDATE ---
Update Note
Progress Note Update
Seen and examined. No new complaints. No acute overnight.
Breathing has become easier however remains hypoxic
Will need a home O2 assessment tomorrow
Pulmonary to evaluate
Steroids
Unfortunately has steroid-induced hyperglycemia
Change sliding scale to moderate
Give additional 5 units
IV fluids with 0.45
[2025-10-07] MEDS: 0.45%NACL 1000 IV (14:50)
[2025-10-07 14:54] LABS: Blood Urea Nitrogen 25 mg/dl (7-17); Calcium 8.7 mg/dl (8.4-10.2); Carbon Dioxide 17 mmol/L (22-30); Chloride 100 mmol/L (98-107); Estimated Creatinine Clearance 32 ml/min; Glucose 479 mg/dl (70-99); Potassium 4.6 mmol/L (3.5-5.1); Sodium 128 mmol/L (135-145); eGFR 45.76
--- NOTE | 2025-10-07 15:42 | PTCARENOTE ---
Pt's glucose originally came back as 409. I put in an order to have the stat glucose lab draw and the result was 386. The provider had placed an order for 5 units of insulin along with her sliding scale. Two hours later her blood glucose was 503,
pt's glucose lab draw came back as 479. Awaiting orders by . Will have the tech take the blood sugar again @1600 which is 2 hours after .
[2025-10-07 16:16] LABS: Glucose - Point of Care 544 mg/dl (70-99)
--- NOTE | 2025-10-07 16:24 | PTCARENOTE ---
Blood sugar came back as high, ordered another stat venous blood glucose. Will message the MD as well.
[2025-10-07 16:47] LABS: Urine Character Clear (Clear)
[2025-10-07 17:07] LABS: Blood Urea Nitrogen 26 mg/dl (7-17); Calcium 8.4 mg/dl (8.4-10.2); Carbon Dioxide 17 mmol/L (22-30); Chloride 99 mmol/L (98-107); Estimated Creatinine Clearance 32 ml/min; Glucose 523 mg/dl (70-99); Glucose 530 mg/dl (70-99); Potassium 4.8 mmol/L (3.5-5.1); Sodium 127 mmol/L (135-145); Urine Red Blood Cell 0-2 /HPF (0-2); Urine White Cell 16-20 /HPF (0-5); eGFR 45.76
--- NOTE | 2025-10-07 17:14 | PTCARENOTE ---
Pt's blood draw glucose was 523. Messaged Dr. Talbot and awaiting a response.
--- NOTE | 2025-10-07 17:21 | PTCARENOTE ---
ordered 5 units standing, with the sliding scale insulin. Will have mold shifter recheck her blood sugar @ 1900.
[2025-10-07] MEDS: NSS 1000 IV (17:25)
[2025-10-07] MEDS: LOVENOX 40 MG SC (17:26)
[2025-10-07] MEDS: NOVOLOG FLEXPEN-MODERATE RESISTANCE 11 UNITS SC (17:27)
[2025-10-07] MEDS: DILAUDID 0.5 MG IV (17:39)
[2025-10-07 19:33] LABS: Glucose - Point of Care 516 mg/dl (70-99)
[2025-10-07 20:37] LABS: Glucose 460 mg/dl (70-99)
[2025-10-07] MEDS: NOVOLOG FLEXPEN 15 UNITS SC (20:53)
[2025-10-07 21:13] LABS: Glucose - Point of Care 467 mg/dl (70-99)
[2025-10-07 22:44] LABS: Glucose - Point of Care 418 mg/dl (70-99)
[2025-10-07] MEDS: NORVASC 5 MG PO (22:52)
[2025-10-07] MEDS: TRICOR 145 MG PO (22:52)
[2025-10-07] MEDS: AMBIEN 5 MG PO (22:57)
--- NOTE | 2025-10-07 23:26 | PTCARENOTE ---
Pt is AAOx3, self, rings appropriately. Pt refused bed alarm. Pt education provided. Bed locked, in lowest position, call mcgrath in reach.
[2025-10-07 23:35] LABS: Glucose 356 mg/dl (70-99)
[2025-10-08] MEDS: NSS 1000 IV (02:44)
[2025-10-08 02:51] LABS: Glucose - Point of Care 319 mg/dl (70-99)
[2025-10-08] MEDS: NOVOLOG FLEXPEN 10 UNITS SC (03:21)
--- NOTE | 2025-10-08 04:45 | PTCARENOTE ---
Upon start of shift, pt aysmpotmatic with 1929 accucheck HI (516). Venous glucose: 460. Tx provided, see MAR. ENVIRONMENTAL CONSERVATION OFFICER notified. Pt glucose taken at 2110, 467 accucheck (scheduled per unit protocol for accucheck), due to treatment given <20 min prior, ENVIRONMENTAL CONSERVATION OFFICER
agreed to wait for 2 hour check from hyperglycemic protocol. At approx 2 hour phuong from treatment, 2241, pt was HI (418). Venous glucose drawn, 2302, 356. ENVIRONMENTAL CONSERVATION OFFICER notified, scheduled lantus given. Per ENVIRONMENTAL CONSERVATION OFFICER, 3 am check recommended. 3 am accucheck, pt 319,
treatment provided, see MAR, ENVIRONMENTAL CONSERVATION OFFICER notified. 0530 accucheck pending.
[2025-10-08 05:29] LABS: Glucose - Point of Care 244 mg/dl (70-99)
[2025-10-08 07:27] LABS: Glucose - Point of Care 187 mg/dl (70-99)
[2025-10-08 07:30] VITALS: BP 126/63
[2025-10-08] MEDS: DUONEB 3 ML INH ×4 (07:40→20:17)
[2025-10-08 07:44] LABS: Hematocrit 22.9 % (37.0-47.0); Hemoglobin 8.3 g/dL (12.0-16.0); Mean Corp Hgb Conc. 36.2 g/dL (33.0-37.0); Mean Corpuscular Volume 90.2 fL (81.0-99.0); Platelet Count 90 10^3/uL (130-400); Red Cell Dist. Width 12.4 % (11.5-14.5)
[2025-10-08 08:03] LABS: Blood Urea Nitrogen 27 mg/dl (7-17); Calcium 8.8 mg/dl (8.4-10.2); Carbon Dioxide 24 mmol/L (22-30); Chloride 109 mmol/L (98-107); Estimated Creatinine Clearance 32 ml/min; Glucose 170 mg/dl (70-99); Potassium 5.0 mmol/L (3.5-5.1); Sodium 135 mmol/L (135-145); eGFR 45.76
--- NOTE | 2025-10-08 08:51 | W.PN.PUL.V3 ---
Today's Communication / Plan
-
Prednisone taper.
Wean oxygen.
Increased activity.
Outpatient pulmonary follow-up
Assessment
-
Patient is a 80-year-old female with past medical history significant for recent diagnosis of squamous cell lung cancer currently on chemotherapy with ipilimumab, nivolumab, Abraxane and carboplatin, history of tuberculosis in the 1970s,
hypothyroid, insulin-dependent diabetes, hypertension, hyperlipidemia presenting to ER with fatigue, generalized malaise, arthralgias, decreased appetite, nausea and vomiting. She last had chemotherapy about 5 weeks ago, which was held due to
thrombocytopenia. 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
In the emergency department the patient was afebrile, blood pressure was 150/37, pulse was 76 and oxygen saturation was 94%. ECG was normal sinus rhythm at a rate of [address] or T wave changes. CBC was a hemoglobin of 10.9 which is
the same as previous and otherwise normal CBC. Electrolytes BUN/creatinine were unremarkable. TSH was within normal range. LFTs were all normal. Her UA is contaminated but positive for bacteria, leukocyte esterase and WBCs. CT of the chest with
PE protocol shows interval decrease in size of the mass at the right posterior costophrenic angle. We are consulted for evaluation.
Acute hypoxic respiratory failure
Stage IV squamous cell ca
Pancytopenia
Hyponatremia, mild
ANTONIA, creatinine 1.3 (BL 0.9�1.0)
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
Pulmonary nodules nodule status post bronchoscopy 01/22/2025
Emphysema, normal spirometry
ILD, fibrosis
Dyslipidemia
Depression
Herpes
Diabetes mellitus
Hypothyroidism
Tuberculosis 1970's
Hypertension
Anemia
Transient global amnesia
Cholecystectomy
Caesarean Section(1986)
Right 4th digit(2011)
Tonsillectomy
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
L eye cataract surgery
- Port placement 01/2025
Plan
Prior history of lung disease is noted including emphysema, ILD
Prior PFT in December does not demonstrate obstructive lung disease but she will need repeat testing as an outpatient
I suspect she has disease progression of her lung disease (as opposed to lung cancer)
Respiratory status slowly improving.
Continue supplement oxygen as needed.
Assess discharge supplemental oxygen needs.
Prednisone 40 mg daily.
Nebulizers as needed
Gentle diuresis.
Prior echocardiogram with normal LV function
Note the patient does have moderate aortic stenosis
DVT prophylaxis-on heparin.
GI prophylaxis-on famotidine.
Nutrition
Or immobilization
She is overdue for a return visit to pulmonary office, which we will arrange
Diagnostic Data
CT Chest 10/06/25-1. No evidence of pulmonary embolism or thoracic aortic dissection.
2. 1.4 cm nodule at the right lung base, which demonstrated FDG uptake on recent prior PET/CT, consistent with recurrent lung carcinoma. Adjacent nodular opacity within the right lower lobe did not demonstrate FDG uptake on prior PET/CT, and may
represent posttreatment change.
3. Moderate interstitial fibrosis. Moderate centrilobular emphysema.
4. Sclerotic lesion within the T3 vertebral body, which is new compared to prior CT dated 04/14/2025, and likely represents osseous metastasis.
PET/CT 09/26/25: IMPRESSION:
1. 1.2 cm right lower lobe pulmonary nodule demonstrating elevated FDG uptake consistent with RECURRENT RIGHT LOWER LOBE LUNG CANCER.
2. 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
3. No evidence for new distant FDG avid metastatic disease.
4. Portal hypertension with moderate splenomegaly.
ECHO 07/17/25: 1. Normal left ventricular chamber size myocardial thickness and systolic function left ventricular ejection fraction 65 to 70%.
2. Moderate aortic stenosis with with peak and mean aortic valve gradients of 49 to 29 mmHg respectively. Mild aortic regurgitation.
3. Compared to a prior echo from July 2024, aortic valve gradients have progressed from 21 and 13 mmHg respectively in that study.
PFT's: Spirometry 01/02/2025: FVC 2.59 L 98%, FEV1 1.87 L 95%, ratio 73 (normal)
Subjective Data
-
Date of Service:
Date of Service: October 08, 2025
Chief Complaint: Pulmonary Follow Up and Dyspnea Follow Up
Subjective:
Some dyspnea on exertion, no chest pain or shortness of breath at rest, no abdominal pain
Review of Systems
General: Other ( per HPI)
Objective Data
Data Reviewed
Vital Signs / I&O:
Vital Signs
Temp Pulse Resp BP Pulse Ox
98.2 F 84 18 126/63 97
10/08/25 07:30 10/08/25 08:32 10/08/25 08:32 10/08/25 07:30 10/08/25 08:32
Intake and Output
10/07/25 10/08/25 10/09/25
06:59 06:59 06:59
Intake Total 480 / 480
Balance 480 / 480
SaO2: 97
Nasal Cannula flow liters per minute: 2
Physical Exam
General: Respiratory Distress (n)
HEENT: Normocephalic and Moist Mucous Membranes
Cardiovascular: Regular Rhythm
Respiratory: Crackles (n), Rhonchi, Non-Labored Respirations, Accessory Resp Muscle Use (n) and Stridor (n)
GI: Soft, Non Distended and Non Tender
Neurology: Awake, Alert and No Motor Deficits
Skin: Warm, Dry, Good Color, Cyanosis (n), Jaundice (n) and Rash (n)
Labs/Micro/Reports
Lab Data
10/08/25 06:45
10/08/25 06:45
Microbiology
10/07/25 00:12 Urine Legionella Urinary Antigen - Final
Negative for Legionella pneumophila Serogroup 1 antigen.
A negative result does not rule out the possiblity of
Legionella infection due to other serogroups or species of
Legionella. Clinical correlation is recommended.
10/07/25 00:12 Urine Streptococcus pneumoniae Antigen (M - Final
Negative for Streptococcus pneumoniae antigen.
A negative result does not exclude infection with
Streptococcus pneumoniae. Clinical correlation is
recommended.
10/06/25 22:46 Nasal Swab Influenza Types A & B (ZOEY) - Final
Negative for Influenza A & B, NAAT
Negative results must be combined with clinical observations
and patient history.
Nucleic Acid Amplification test (NAAT)performed on the
[employer] platform.
[2025-10-08] MEDS: NOVOLOG FLEXPEN-MODERATE RESISTANCE 1 UNITS SC (09:17)
[2025-10-08] MEDS: ZESTRIL 40 MG PO ×2 (09:18→21:44)
[2025-10-08] MEDS: DELTASONE 40 MG PO (09:18)
[2025-10-08] MEDS: PEPCID 20 MG PO (09:24)
[2025-10-08] MEDS: LANTUS 0.16 UNITS SC (09:25)
[2025-10-08 11:04] LABS: Glucose - Point of Care 295 mg/dl (70-99)
--- NOTE | 2025-10-08 12:40 | W.PN.HOSP.TC ---
Today's Communication/Plan
-
see PN
Assessment / Plan
Assessment / Plan
80yo F with PMHX of ILD, DM, SCC of the lung, Hx of tuberculosis, hypothyroidism, HTN, HLD came with 1 week of worsening malaise and somnolence, found hypoxia due to possible ILD flare. Rapidly improved on steroids. PAtient also had significant AM
hypoglycemia at home, so her insulin was decreased from 34units BID to 14units BID. Patient then developed hyperglycemia in hospital. CT showed severe combined emphysema and pulmonary fibrosis, casino controller advised steroids. Supplemental O2 as
weaned off and patient remained on her baseline on the next day after admission.
A/P:
#Malaise, most likely 2/2 acute respiratory inefficiency 2/2 pulmonary fibrosis and emphysema flare
Bronchodilators and steroids as per pulm
weaned off O2
TSH WNL
#DM type 2 with nephropathy
#Hyperglycemia, most liekly transient DKA
Acidosis and hyperglycemia resolved with SQ insulin
COnt to follow with as outpatient
Adjust insulin
Patient did not measure blood sugar appropritly at home - advised TID measurement and keep logs to provide to school director
DM diet, Accuchecks, cont basal insulin and insulin SS
#SCC of the lung
#Anemia
#Thrombocytopenia
chronic
cont to follow up with established oncologist
Managed by
DVT ppx hep
FUll code
I have spent at least 58min reviewing chart, test results, communication with consultants and providing direct patient care
Anticipated Discharge: Within 24 hours
Subjective/Interval History
-
Date of Service: October 08, 2025
Objective Data
-
Labs:
Laboratory Results
10/08/25
06:45
WBC 3.5 L
Hgb 8.3 L
Hct 22.9 L
Plt Count 90 L
Sodium 135 D
Potassium 5.0
Chloride 109 H
Carbon Dioxide 24
BUN 27 H
Creatinine 1.2 H
Glucose 170 H
Calcium 8.8
Vital Signs:
Vital Signs
Temp Pulse Resp BP Pulse Ox
98.2 F 84 18 126/63 97
10/08/25 07:30 10/08/25 08:32 10/08/25 08:32 10/08/25 07:30 10/08/25 08:51
I&O
10/07/25 10/08/25 10/09/25
06:59 06:59 06:59
Intake Total 480 / 480
Balance 480 / 480
Review of Systems
-
History Source: Patient
All other systems: Reviewed and negative
Physical Exam
-
General: No Apparent Distress
HEENT: Normocephalic
Cardiac: Regular Rhythm
GI: Soft, Nontender and Nondistended
Musculoskeletal: No Clubbing, No Cyanosis and No Edema
Neuro: Awake, Alert, Oriented and AO x 3
Psych: Calm
[2025-10-08] MEDS: PROZAC 40 MG PO (12:48)
[2025-10-08] MEDS: NOVOLOG FLEXPEN-MODERATE RESISTANCE 5 UNITS SC (12:48)
[2025-10-08] MEDS: SYNTHROID 100 MCG PO (12:48)
[2025-10-08] MEDS: NSS IV (13:49)
[2025-10-08 15:28] VITALS: BP 130/55
[2025-10-08 15:37] LABS: Glucose - Point of Care 418 mg/dl (70-99)
[2025-10-08 16:27] LABS: Glucose 395 mg/dl (70-99)
[2025-10-08] MEDS: NOVOLOG FLEXPEN 4 UNITS SC (17:09)
[2025-10-08] MEDS: NOVOLOG FLEXPEN-MODERATE RESISTANCE 9 UNITS SC (17:12)
[2025-10-08 18:51] LABS: Glucose - Point of Care 472 mg/dl (70-99)
[2025-10-08 20:14] LABS: Glucose 410 mg/dl (70-99)
[2025-10-08 21:20] LABS: Glucose - Point of Care 441 mg/dl (70-99)
[2025-10-08] MEDS: HEPARIN 5000 UNITS SC (21:34)
[2025-10-08] MEDS: NOVOLOG FLEXPEN 11 UNITS SC (21:35)
[2025-10-08] MEDS: TRICOR 145 MG PO (21:35)
[2025-10-08] MEDS: NORVASC 5 MG PO (21:36)
[2025-10-08] MEDS: AMBIEN 5 MG PO (21:39)
[2025-10-08] MEDS: LANTUS 0.12 UNITS SC (22:21)
[2025-10-08 23:33] LABS: Glucose - Point of Care 389 mg/dl (70-99)
[2025-10-08 23:48] VITALS: BP 137/60
[2025-10-09] MEDS: NOVOLOG FLEXPEN 9 UNITS SC (00:13)
[2025-10-09 02:18] LABS: Glucose - Point of Care 282 mg/dl (70-99)
--- NOTE | 2025-10-09 04:25 | PTCARENOTE ---
Pt glucose upon start of shift was HI, hyperglycemic protocol initiated. 1849: 472, 2118: 441, 2331: 389, 0216: 282. FACTORY ASSEMBLER notified of each result. Coverage given for glucose levels accordingly, see MAR. Pt asymptomatic upon time of assessment.
[2025-10-09] MEDS: DUONEB 3 ML INH ×3 (07:24→14:53)
[2025-10-09 07:30] VITALS: BP 136/57
[2025-10-09 07:40] LABS: Glucose - Point of Care 179 mg/dl (70-99)
[2025-10-09 09:06] LABS: Hematocrit 24.8 % (37.0-47.0); Hemoglobin 8.7 g/dL (12.0-16.0); Mean Corp Hgb Conc. 35.1 g/dL (33.0-37.0); Mean Corpuscular Volume 93.2 fL (81.0-99.0); Nucleated Red Blood Cells % 0 %; Platelet Count 92 10^3/uL (130-400); Red Cell Dist. Width 12.7 % (11.5-14.5)
[2025-10-09] MEDS: NOVOLOG FLEXPEN-MODERATE RESISTANCE 1 UNITS SC (09:39)
[2025-10-09] MEDS: DELTASONE 40 MG PO (09:41)
[2025-10-09] MEDS: PEPCID 20 MG PO (09:41)
[2025-10-09] MEDS: ZESTRIL 40 MG PO (09:42)
[2025-10-09] MEDS: HEPARIN 5000 UNITS SC (09:42)
[2025-10-09] MEDS: NOVOLOG FLEXPEN 8 UNITS SC ×3 (09:44→17:13)
[2025-10-09] MEDS: LANTUS 0.2 UNITS SC (09:44)
[2025-10-09] MEDS: NOVOLOG FLEXPEN SC (10:08)
[2025-10-09 10:14] LABS: ALT (SGPT) 15 U/L (0-35); AST (SGOT) 23 U/L (14-36); Albumin 3.8 g/dl (3.5-5.0); Alkaline Phosphatase 87 U/L (38-126); Blood Urea Nitrogen 33 mg/dl (7-17); Calcium 9.1 mg/dl (8.4-10.2); Carbon Dioxide 21 mmol/L (22-30); Chloride 108 mmol/L (98-107); Estimated Creatinine Clearance 35 ml/min; Glucose 165 mg/dl (70-99); Potassium 4.6 mmol/L (3.5-5.1); Sodium 134 mmol/L (135-145); Total Protein 6.5 g/dl (6.3-8.2); eGFR 50.80
--- NOTE | 2025-10-09 10:56 | PN.CDI ---
CDI
- -
CDI:
Physician Documentation Request
Admit Date: 10/07/25 03:22
Dear Doctor ,
Please review the following and provide your response in the progress notes.
Clinical Indicators:
Pt admitted with ILD flare
Documented per ED, ' ... lung cancer not currently on treatment last immunotherapy was 3 weeks ago and chemotherapy was 5 weeks ago,...'
Pulmonary consult and progress note 10/08, ' She last had chemotherapy about 5 weeks ago, which was held due to thrombocytopenia...Pancytopenia..'
Laboratory Tests
10/06/25 10/07/25 10/08/25
21:18 07:16 06:45
WBC 4.0 L 2.1 L* 3.5 L
Hgb 10.9 L 10.1 L 8.3 L
Hct 29.4 L 28.7 L 22.9 L
Plt Count 121 L 100 L 90 L
10/09/25
08:20
WBC 3.1 L
Hgb 8.7 L
Hct 24.8 L
Plt Count 92 L
Please provide the suspected etiology of the documented pancytopenia :
Pancytopenia due to chemotherapy
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
Other ( please specify)
Use of terms such as suspected, likely, concern for, or probable (associated with a specific diagnosis that is being evaluated, monitored, or treated as if it exists) are acceptable and can be coded in the inpatient setting, when documented at the
time of discharge.
Thank you,
Julieta Mccloud RN
CDI Specialist
[facility]
Please use your independent medical judgment in providing your response.
[2025-10-09 11:01] LABS: Glucose - Point of Care 266 mg/dl (70-99)
--- NOTE | 2025-10-09 11:06 | W.PN.PUL.V3 ---
Today's Communication / Plan
-
Decrease steroids.
Monitor blood sugar.
Outpatient pulmonary follow-up
Assessment
-
Patient is a 80-year-old female with past medical history significant for recent diagnosis of squamous cell lung cancer currently on chemotherapy with ipilimumab, nivolumab, Abraxane and carboplatin, history of tuberculosis in the 1970s,
hypothyroid, insulin-dependent diabetes, hypertension, hyperlipidemia presenting to ER with fatigue, generalized malaise, arthralgias, decreased appetite, nausea and vomiting. She last had chemotherapy about 5 weeks ago, which was held due to
thrombocytopenia. 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
In the emergency department the patient was afebrile, blood pressure was 150/37, pulse was 76 and oxygen saturation was 94%. ECG was normal sinus rhythm at a rate of [address] or T wave changes. CBC was a hemoglobin of 10.9 which is
the same as previous and otherwise normal CBC. Electrolytes BUN/creatinine were unremarkable. TSH was within normal range. LFTs were all normal. Her UA is contaminated but positive for bacteria, leukocyte esterase and WBCs. CT of the chest with
PE protocol shows interval decrease in size of the mass at the right posterior costophrenic angle. We are consulted for evaluation.
Acute hypoxic respiratory failure
Stage IV squamous cell ca
Pancytopenia
Hyponatremia, mild
ANTONIA, creatinine 1.3 (BL 0.9�1.0)
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
Pulmonary nodules nodule status post bronchoscopy 01/22/2025
Emphysema, normal spirometry
ILD, fibrosis
Dyslipidemia
Depression
Herpes
Diabetes mellitus
Hypothyroidism
Tuberculosis 1970's
Hypertension
Anemia
Transient global amnesia
Cholecystectomy
Caesarean Section(1986)
Right 4th digit(2011)
Tonsillectomy
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
L eye cataract surgery
- Port placement 01/2025
Plan
Prior history of lung disease is noted including emphysema, ILD
Prior PFT in December does not demonstrate obstructive lung disease but she will need repeat testing as an outpatient
I suspect she has disease progression of her lung disease (as opposed to lung cancer)
Respiratory status slowly improving.
Continue supplement oxygen as needed.
Assess discharge supplemental oxygen needs.
Prednisone 40 mg daily.
Nebulizers as needed
Gentle diuresis.
Prior echocardiogram with normal LV function
Note the patient does have moderate aortic stenosis.
Oncology follow-correspondence reviewed.
Agree-doubt immunotherapy induced pneumonitis. I think keep close eye on interstitial process
DVT prophylaxis-on heparin.
GI prophylaxis-on famotidine.
Nutrition.
Increase activity
She is overdue for a return visit to pulmonary office, which we will arrange
Diagnostic Data
CT Chest 10/06/25-1. No evidence of pulmonary embolism or thoracic aortic dissection.
2. 1.4 cm nodule at the right lung base, which demonstrated FDG uptake on recent prior PET/CT, consistent with recurrent lung carcinoma. Adjacent nodular opacity within the right lower lobe did not demonstrate FDG uptake on prior PET/CT, and may
represent posttreatment change.
3. Moderate interstitial fibrosis. Moderate centrilobular emphysema.
4. Sclerotic lesion within the T3 vertebral body, which is new compared to prior CT dated 04/14/2025, and likely represents osseous metastasis.
PET/CT 09/26/25: IMPRESSION:
1. 1.2 cm right lower lobe pulmonary nodule demonstrating elevated FDG uptake consistent with RECURRENT RIGHT LOWER LOBE LUNG CANCER.
2. 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
3. No evidence for new distant FDG avid metastatic disease.
4. Portal hypertension with moderate splenomegaly.
ECHO 07/17/25: 1. Normal left ventricular chamber size myocardial thickness and systolic function left ventricular ejection fraction 65 to 70%.
2. Moderate aortic stenosis with with peak and mean aortic valve gradients of 49 to 29 mmHg respectively. Mild aortic regurgitation.
3. Compared to a prior echo from July 2024, aortic valve gradients have progressed from 21 and 13 mmHg respectively in that study.
PFT's: Spirometry 01/02/2025: FVC 2.59 L 98%, FEV1 1.87 L 95%, ratio 73 (normal)
Subjective Data
-
Date of Service:
Date of Service: October 09, 2025
Chief Complaint: Pulmonary Follow Up and Dyspnea Follow Up
Subjective:
, still with some shortness of breath, complaints of increased blood sugars due to the steroids, no chest pain, productive cough, or abdominal pain
Review of Systems
General: Other ( per HPI)
Objective Data
Data Reviewed
Vital Signs / I&O:
Vital Signs
Temp Pulse Resp BP Pulse Ox
97.4 F 76 16 136/57 99
10/09/25 07:30 10/09/25 07:30 10/09/25 07:30 10/09/25 07:30 10/09/25 07:30
Intake and Output
10/08/25 10/09/25 10/10/25
06:59 06:59 06:59
Intake Total 1260 / 1260
Balance 1260 / 1260
SaO2: 99
Nasal Cannula flow liters per minute: 2
Physical Exam
General: Respiratory Distress (n)
HEENT: Normocephalic and Moist Mucous Membranes
Cardiovascular: Regular Rhythm
Respiratory: Crackles (n), Rhonchi, Non-Labored Respirations, Accessory Resp Muscle Use (n) and Stridor (n)
GI: Soft, Non Distended and Non Tender
Neurology: Awake, Alert and No Motor Deficits
Skin: Warm, Dry, Good Color, Cyanosis (n), Jaundice (n) and Rash (n)
Labs/Micro/Reports
Lab Data
10/09/25 08:20
10/09/25 08:20
Microbiology
10/07/25 16:32 Urine Urine Culture - Final
No Significant Growth
10/07/25 00:12 Urine Urine Culture - Final
10/07/25 00:12 Urine Legionella Urinary Antigen - Final
Negative for Legionella pneumophila Serogroup 1 antigen.
A negative result does not rule out the possiblity of
Legionella infection due to other serogroups or species of
Legionella. Clinical correlation is recommended.
10/07/25 00:12 Urine Streptococcus pneumoniae Antigen (M - Final
Negative for Streptococcus pneumoniae antigen.
A negative result does not exclude infection with
Streptococcus pneumoniae. Clinical correlation is
recommended.
10/06/25 22:46 Nasal Swab Influenza Types A & B (ZOEY) - Final
Negative for Influenza A & B, NAAT
Negative results must be combined with clinical observations
and patient history.
Nucleic Acid Amplification test (NAAT)performed on the
[employer] platform.
--- NOTE | 2025-10-09 11:52 | W.PN.HOSP.TC ---
Addendum entered and electronically signed by Josue Becerra MD 10/09/25 16:45:
dont use billing under this nopte, use dc summary billing instead
Original Note:
Today's Communication/Plan
-
follow BS
Hem consult
Assessment / Plan
Assessment / Plan
80yo F with PMHX of ILD, DM, SCC of the lung, Hx of tuberculosis, hypothyroidism, HTN, HLD came with 1 week of worsening malaise and somnolence, found hypoxia due to possible ILD flare. Rapidly improved on steroids. PAtient also had significant AM
hypoglycemia at home, so her insulin was decreased from 34units BID to 14units BID. Patient then developed hyperglycemia in hospital. CT showed severe combined emphysema and pulmonary fibrosis, predictive maintenance technician advised steroids. Supplemental O2 as
weaned off and patient remained on her baseline on the next day after admission.
A/P:
#Malaise, most likely 2/2 acute respiratory inefficiency 2/2 pulmonary fibrosis and emphysema flare
Bronchodilators and steroids taper as per pulm
weaned off O2
TSH WNL
#DM type 2 with nephropathy
#Hyperglycemia, most liekly transient DKA
Acidosis and hyperglycemia resolved with SQ insulin
COnt to follow with as outpatient
Adjust insulin
Patient did not measure blood sugar appropriately at home - advised TID measurement and keep logs to provide to photograph inspector
DM diet, Accuchecks, cont basal insulin add bolus premeal - patient instructed on watchign her BS and insulin SS while inpatient
#SCC of the lung
#Anemia
#Thrombocytopenia
chronic
cont to follow up with established oncologist
Managed by : advised to have inpatient consult by Oncology for due to concern for immune-therapy associated pneumonitis
DVT ppx hep
FUll code
I have spent at least 58min reviewing chart, test results, communication with consultants and providing direct patient care
Anticipated Discharge: Within 24 hours
Subjective/Interval History
-
Date of Service: October 09, 2025
Objective Data
-
Labs:
Laboratory Results
10/09/25
08:20
WBC 3.1 L
Hgb 8.7 L
Hct 24.8 L
Plt Count 92 L
Sodium 134 L
Potassium 4.6
Chloride 108 H
Carbon Dioxide 21 L
BUN 33 H
Creatinine 1.1 H
Glucose 165 H
Calcium 9.1
Total Bilirubin 0.4
AST 23
ALT 15
Alkaline Phosphatase 87
Vital Signs:
Vital Signs
Temp Pulse Resp BP Pulse Ox
97.4 F 76 16 136/57 99
10/09/25 07:30 10/09/25 07:30 10/09/25 07:30 10/09/25 07:30 10/09/25 11:06
I&O
10/08/25 10/09/25 10/10/25
06:59 06:59 06:59
Intake Total 1260 / 1260
Balance 1260 / 1260
Review of Systems
-
History Source: Patient
All other systems: Reviewed and negative
Physical Exam
-
General: No Apparent Distress
HEENT: Normocephalic
Respiratory: Clear to Auscultation
GI: Soft, Nontender and Nondistended
Skin: Warm
Neuro: Awake, Alert, Oriented and AO x 3
--- NOTE | 2025-10-09 12:11 | CM ---
CM reviewed chart, patient seen bedside with significant other.
Patient reports likely for d.c today- confirms transportation home.
IMM verbally reviewed, provided with copy, placed in chart.
Offered VN to patient, declined.
CM will continue to follow.
Plan; home no needs, significant other will transport home
[2025-10-09] MEDS: PROTONIX 40 MG PO (13:00)
[2025-10-09] MEDS: SYNTHROID 100 MCG PO (13:00)
[2025-10-09] MEDS: NOVOLOG FLEXPEN-MODERATE RESISTANCE 5 UNITS SC (13:01)
[2025-10-09] MEDS: PROZAC 40 MG PO (13:10)
--- NOTE | 2025-10-09 13:36 | W.DCSUMMARY ---
Addendum entered and electronically signed by Josue Becerra MD 10/10/25 14:16:
#Pancytopenia 2/2 CA and chemotherapy
Original Note:
Discharge Summary
Discharge Data
Date of Admission: 10/07/25
Date of Discharge: 10/09/25
-
Pending Results: No
Hospital Course
80yo F with PMHX of ILD, DM, SCC of the lung, Hx of tuberculosis, hypothyroidism, HTN, HLD came with 1 week of worsening malaise and somnolence, found hypoxia due to possible ILD flare. Rapidly improved on steroids. PAtient also had significant AM
hypoglycemia at home, so her insulin was decreased from 34units BID to 14units BID. Patient then developed hyperglycemia in hospital. 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 Supplemental O2 as
weaned off and patient remained on her baseline on the next day after admission. Pulm recommended steroid taper. Discussed with Oncology - cannot exclude autoimmune pneumonitis 2/2 Opdivo - medication to be held. Close outpatient f/u with onc
advised. Premeal insulin added, AM insulin Lantus increased. Patient recommended to measure blood glucose TID and if >400 - come to ED. Also create the log and discuss with established wood piler NOHEMY. Blood glucose controlled much better on
the day of D/C. Hypoglycemia monitoring advised. patient verbalized understanding. Wriiten instrcution sfor measurements and insulin provided. medically stable to be d/c home
I have spent at least 58min reviewing chart, test results, communication with consultants and providing direct patient care
Patient was managed for:
#Malaise, most likely 2/2 acute respiratory inefficiency 2/2 pulmonary fibrosis and emphysema flare
#DM type 2 with nephropathy
#Hyperglycemia, most likely transient DKA
#SCC of the lung
#Anemia
#Thrombocytopenia
Discharge Plan
-
Patient Disposition: Home (Routine Discharge)
Discharge Diagnosis/Procedures: ILD
Diet: Diabetic, Carb Controlled
Activity: As tolerated
Driving Restrictions: As prior to admission
Referrals:
Mckenna Moss MD [Active, Pulmonary Medicine] - in one to two weeks
Referral Note: PFT
Doc Herrera DO [Active, Hematology / Oncology] - in three to four days
Julián Evans MD [Family Provider, Family Practice]
Sheryl Song MD [Consulting Staff, Endocrinology] - in less than 1 week
Additional Discharge Medication Instructions: Check blood sugar three times a day - 15min before each major meal. Please create the log of the values and show it to your wood piler
Use pre-meal insulin 3 times a day if premeal blood glucose higher then 100
Continue to use Lantus BID
If two pre-meal blood glucose >400 - go to ED
Prescriptions:
New
prednisone 10 mg tablet
10 mg PO DIRECTED Qty: 16 0RF
Rx Instructions:
take 30mg daily x3 days, 20mg daily x 3 days then 10 mg once and stop
pantoprazole 40 mg Tablet,Delayed Release (Dr/Ec)
40 mg PO DAILY Qty: 30 0RF
insulin aspart U-100 100 unit/mL (3 mL) Insulin Pen
6 unit SC AC Qty: 15 0RF
Continued
Ozempic 1 mg/dose (4 mg/3 mL) Pen Injector
1 mg SC QWEEK
Rx Instructions:
Q
benazepril 40 mg Tablet
40 mg PO BID
fluoxetine 40 mg Capsule
40 mg PO NOON
amlodipine 5 mg Tablet
10 mg PO HS
levothyroxine 100 mcg Tablet
100 mcg PO NOON
Rx Instructions:
added an extra 100mcg weekly on Wednesdays
zolpidem [Ambien] 5 mg Tablet
2.5 mg PO HS
albuterol sulfate 90 mcg/actuation Hfa Aerosol Inhaler
1 inh INHALATION PRN PRN (Reason: wheezing,sob)
cyanocobalamin-liver extract Tablet
1 tab PO .WEEKLY
fenofibrate 160 mg Tablet
160 mg PO HS
paclitaxel protein-bound [Abraxane] 100 mg Suspension For Reconstitution
113 mg IV .Q 3 WEEKS
Patient Comments:
. schedule varies
Yervoy
57.1 mg IV .[id number]
carboplatin
286 mg IV .[id number]
Patient Comments:
schedule varies
Changed
insulin glargine [Lantus Solostar U-100 Insulin] 100 unit/mL (3 mL) Insulin Pen
See Rx Instructions .ROUTE .COMPLEX Qty: 15 0RF
Rx Instructions:
20units at AM AND 12 units at PM
Held
Opdivo
360 mg IV .Q3 WEEKS
Hold Instructions: Until discussed with oncologist
Discharge Orders:
Discharge Patient (As Directed); Ordered 10/09/25
Ordered By: Josue Becerra
Discharge Date and Time
Print Language: TRINIDADIAN
[2025-10-09 13:52] VITALS: PULSE 84; PULSE 86; O2SAT 96
--- NOTE | 2025-10-09 14:50 | CON.ONC ---
Consultation
-
Date Consultation Requested: 10/09/25
Date Consultation Performed: 10/09/25
Requesting Provider: Timur
Performing Provider: Portia
Reason for Consultation: possible immunoRx reaction
Impression
Impression
Acute respiratory insufficiency, improved with steroids
Stage IV non-small cell lung cancer, completed carboplatinum and Abraxane, remains on immunotherapy with Opdivo
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
Diabetes
Plan
Plan
I have personally reviewed her CT scan. I do not see enough to make me think that she has had any sort of significant pulmonary side effect from immunotherapy. She does have some chronic interstitial lung disease. She is remarkably better on
steroids. Will defer to pulmonary in terms of a tapering schedule. Should symptoms recur, she should undergo a repeat CT scan, and if we feel that this is due to immunotherapy, she might need higher doses of steroids. No systemic therapy planned
until after the holidays, as she is seeing radiation therapy at the end of this month.
Patient History
History of Present Illness
This 80-year-old woman was admitted with multiple complaints, including dyspnea on exertion, fatigue, and loss of appetite. 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 She had a
moderate response to carboplatinum, Abraxane, and Opdivo. However, a follow-up PET scan showed a new lung nodule suggestive of progressive disease. She is due to see radiation therapy in about 2 weeks. She has been treated here with pulmonary
therapy as well as steroids, and is feeling much better today, back to about 90%. She is no longer on oxygen.
Past-Medical/Surgical History
Besides the lung cancer she has diabetes and hypothyroidism.
Social history: She does not smoke.
Family history is noncontributory.
Patient Medication
�Medication �Instructions �Recorded �Confirmed �Last Taken �Type
albuterol sulfate 90 mcg/actuation 1 inh inhalation PRN PRN 01/17/25 09/19/25 03/19/25 History
aerosol inhaler wheezing,sob
amlodipine 5 mg tablet 10 mg PO HS Blood Pressure 01/17/25 09/19/25 09/18/25 History
cyanocobalamin-liver extract tablet 1 tab PO .WEEKLY Supplement 01/17/25 09/19/25 08/28/25 History
fenofibrate 160 mg tablet 160 mg PO HS High Cholesterol 01/17/25 09/19/25 09/18/25 History
fluoxetine 40 mg capsule 40 mg PO NOON Depression 01/17/25 09/19/25 09/19/25 History
insulin glargine 100 unit/mL (3 32 unit SC BID Diabetes 01/17/25 09/19/25 09/19/25 History
mL) subcutaneous pen (Lantus
Solostar U-100 Insulin)
levothyroxine 100 mcg tablet 100 mcg PO NOON 01/17/25 09/19/25 09/19/25 History
zolpidem 5 mg tablet (Ambien) 2.5 mg PO HS Sleep 01/17/25 09/19/25 09/18/25 History
benazepril 40 mg tablet 40 mg PO BID Blood Pressure 01/18/25 09/19/25 09/19/25 History
semaglutide 1 mg/dose (4 mg/3 mL) 1 mg SC QWEEK Diabetes 01/18/25 09/19/25 09/13/25 History
subcutaneous pen injector (Ozempic)
Opdivo 360 mg IV .Q3 WEEKS Cancer 03/27/25 09/19/25 09/19/25 History
Yervoy 57.1 mg IV .[id number] Cancer 03/27/25 09/19/25 09/19/25 History
carboplatin 286 mg IV .[id number] Cancer 03/27/25 09/19/25 07/11/25 History
paclitaxel protein-bound 100 mg 113 mg IV .Q 3 WEEKS Cancer 03/27/25 09/19/25 08/29/25 History
intravenous suspension (Abraxane)
Active Medications
Generic Name Dose Route Start Last Admin
Trade Name Freq PRN Reason Stop Dose Admin
Acetaminophen 650 mg 10/07/25 03:54
Acetaminophen 325 Mg Tablet PO 11/04/25 03:53
Q4HPRN PRN
mild pain/NGUYỄN/temp> 100.4F
Albuterol Sulfate 2.5 mg 10/07/25 03:54
Albuterol Nebs 2.5 Mg/3 Ml Ampul INH
R Q4HPRN PRN
shortness of breath
Protocol
Albuterol/Ipratropium 3 ml 10/07/25 08:00 10/09/25 11:57
Ipratropium 0.5/Albuterol 3 Mg (3 Ml Ampul) INH 3 ml
R QID YING Administration
Protocol
Amlodipine Besylate 5 mg 10/07/25 22:00 10/08/25 21:36
Amlodipine 5 Mg Tablet PO 11/04/25 21:59 5 mg
HS YING Administration
Bisacodyl 10 mg 10/07/25 03:54
Bisacodyl 10 Mg Rectal Suppository RECTAL 11/04/25 03:53
[id number] PRN
constipation
Dextrose 12.5 grams 10/07/25 03:54
Dextrose 50% (0.5 Grams/Ml) 50 Ml Syringe IV 11/04/25 03:53
[id number] PRN
hypoglycemia
Protocol
Famotidine 20 mg 10/07/25 08:00 10/09/25 09:41
Famotidine 20 Mg Tablet PO 11/04/25 07:59 20 mg
DAILY YING Administration
Fenofibrate 145 mg 10/07/25 22:00 10/08/25 21:35
Fenofibrate 145 Mg Tablet PO 11/04/25 21:59 145 mg
HS YING Administration
Fluoxetine HCl 40 mg 10/07/25 12:00 10/09/25 13:10
Fluoxetine 20 Mg Capsule PO 11/04/25 11:59 40 mg
NOON YING Administration
Glucagon 1 mg 10/07/25 03:54
Glucagon 1 Mg Vial IM 11/04/25 03:53
PRN PRN
hypoglycemia
Protocol
Heparin Sodium 5,000 units 10/08/25 20:00 10/09/25 09:42
Heparin 5,000 Units/Ml 1 Ml Vial SC 11/05/25 19:59 5,000 units
Q12 YING Administration
Hydromorphone HCl 0.5 mg 10/07/25 03:54 10/07/25 17:39
Hydromorphone 0.5 Mg/0.5 Ml Syringe IV 10/21/25 03:53 0.5 mg
Q4HPRN PRN Administration
severe pain
Insulin Glargine 12 units/ 0.12 mls @ 0 mls/hr 10/07/25 22:00 10/08/25 22:21
Device SC 11/04/25 21:59 0.12 mls
HS YING Administration
As Directed
Insulin Glargine 20 units/ 0.2 mls @ 0 mls/hr 10/09/25 07:34 10/09/25 09:44
Device SC 11/05/25 07:34 0.2 mls
DAILY YING Administration
As Directed
Insulin Aspart 0 units 10/07/25 16:30 10/09/25 13:01
Insulin Aspart Moderate Resistance 300 Units/3 Ml Pen.Injctr SC 11/04/25 16:29 5 units
AC YING Administration
Protocol
Insulin Aspart 8 units 10/09/25 08:00 10/09/25 13:00
Insulin Aspart (Novolog) 100 Units/Ml 3 Ml Flexpen SC 11/06/25 07:59 8 units
AC YING Administration
Levothyroxine Sodium 100 mcg 10/07/25 12:00 10/09/25 13:00
Levothyroxine 100 Mcg Tablet PO 11/04/25 11:59 100 mcg
NOON YING Administration
Lisinopril 40 mg 10/07/25 08:00 10/09/25 09:42
Lisinopril 20 Mg Tablet PO 11/04/25 07:59 40 mg
BID YING Administration
Ondansetron HCl 4 mg 10/07/25 03:54
Ondansetron 4 Mg/2 Ml Vial IV 11/04/25 03:53
Q6HPRN PRN
nausea and vomiting
Oxycodone HCl 5 mg 10/07/25 03:54 10/07/25 12:49
Oxycodone 5 Mg Regular Release Tablet PO 10/21/25 03:53 5 mg
Q4HPRN PRN Administration
moderate pain
Pantoprazole Sodium 40 mg 10/09/25 11:00 10/09/25 13:00
Pantoprazole 40 Mg Delayed Release Tablet PO 11/06/25 10:59 40 mg
DAILY YING Administration
Polyethylene Glycol 17 grams 10/07/25 03:54
Polyethylene Glycol Powder 17 Grams Packet PO 11/04/25 03:53
DAILYPRN PRN
constipation
Prednisone 40 mg 10/07/25 08:00 10/09/25 09:41
Prednisone 20 Mg Tablet PO 11/04/25 07:59 40 mg
DAILY YING Administration
Senna/Docusate Sodium 1 tablet 10/07/25 03:54
Docusate W/Senna (Kim-Colace) Tablet PO 11/04/25 03:53
BIDPRN PRN
constipation
Sodium Chloride 0 flush 10/07/25 05:00
Sodium Chloride 0.9% (Flush) Syringe IV 11/04/25 04:59
PER PROTOCOL YING
Zolpidem Tartrate 5 mg 10/07/25 22:00 10/08/25 21:39
Zolpidem Tartrate 5 Mg Tablet PO 11/04/25 21:59 5 mg
HS YING Administration
Review of Systems
-
All Other Systems: Reviewed and Negative
Physical Exam
-
Physical examination shows the patient to be in no acute distress.
HEENT exam is unremarkable.
There are no palpable nodes.
Chest is clear.
The heart is regular with a soft systolic murmur.
The abdomen is soft and nontender with no organomegaly or masses.
Extremities are unremarkable.
Neurologic is grossly intact.
Labs
Lab Results
WBC 3.1 10^3/uL (4.8-10.8) L 10/09/25 08:20
RBC 2.66 10^6/uL (4.20-5.40) L 10/09/25 08:20
Hgb 8.7 g/dL (12.0-16.0) L 10/09/25 08:20
Hct 24.8 % (37.0-47.0) L 10/09/25 08:20
MCV 93.2 fL (81.0-99.0) 10/09/25 08:20
MCH 32.7 pg (27.0-31.0) H 10/09/25 08:20
MCHC 35.1 g/dL (33.0-37.0) 10/09/25 08:20
RDW 12.7 % (11.5-14.5) 10/09/25 08:20
Plt Count 92 10^3/uL (130-400) L 10/09/25 08:20
MPV 9.5 fL (7.4-10.4) 10/09/25 08:20
Abs Immat Gran (auto) 0.0 10^3/uL (0-0.05) 10/09/25 08:20
Absolute Neuts (auto) 2.4 10^3/uL (1.4-6.5) 10/09/25 08:20
Absolute Lymphs (auto) 0.5 10^3/uL (1.2-3.4) L 10/09/25 08:20
Absolute Monos (auto) 0.2 10^3/uL (0.1-0.6) 10/09/25 08:20
Absolute Eos (auto) 0.0 10^3/uL (0-0.7) 10/09/25 08:20
Absolute Basos (auto) 0.0 10^3/uL (0-0.2) 10/09/25 08:20
Immature Gran % 0.6 % (0-0.5) H 10/09/25 08:20
Neutrophils % 78.3 % (42.2-75.2) H 10/09/25 08:20
Lymphocytes % 15.3 % (20.5-51.1) L 10/09/25 08:20
Monocytes % 5.8 % (1.7-9.3) 10/09/25 08:20
Eosinophils % 0.0 % (0-6) 10/09/25 08:20
Basophils % 0.0 % (0-2) 10/09/25 08:20
Creatinine 1.1 mg/dL (0.6-1.0) H 10/09/25 08:20
Vital Signs
Vital Signs
Temp Pulse Resp BP Pulse Ox
97.4 F 74 16 136/57 96
10/09/25 07:30 10/09/25 12:01 10/09/25 12:01 10/09/25 07:30 10/09/25 12:01
[2025-10-09 15:30] VITALS: BP 142/57
[2025-10-09 15:39] LABS: Glucose - Point of Care 142 mg/dl (70-99)
[2025-10-09 15:58] VITALS: BP 142/57
[2025-10-09] MEDS: NOVOLOG FLEXPEN-MODERATE RESISTANCE SC (17:13)
--- NOTE | 2025-10-10 13:26 | PN.CDI ---
CDI
- -
CDI:
Physician Documentation Request
Admit Date: 10/07/25 03:22
Dear Doctor ,
Please review the following and provide your response in the progress notes.
Clinical Indicators:
Pt admitted with ILD flare
Documented per ED, ' ... lung cancer not currently on treatment last immunotherapy was 3 weeks ago and chemotherapy was 5 weeks ago,...'
Progress note 10/08,'#SCC of the lung Anemia Thrombocytopenia chronic...'
Pulmonary consult and progress note 10/08, ' She last had chemotherapy about 5 weeks ago, which was held due to thrombocytopenia...Pancytopenia..'
Laboratory Tests
10/06/25 10/07/25 10/08/25
21:18 07:16 06:45
WBC 4.0 L 2.1 L* 3.5 L
Hgb 10.9 L 10.1 L 8.3 L
Hct 29.4 L 28.7 L 22.9 L
Plt Count 121 L 100 L 90 L
10/09/25
08:20
WBC 3.1 L
Hgb 8.7 L
Hct 24.8 L
Plt Count 92 L
Please provide the suspected etiology of the documented pancytopenia :
Pancytopenia due to chemotherapy
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
Other ( please specify)
Use of terms such as suspected, likely, concern for, or probable (associated with a specific diagnosis that is being evaluated, monitored, or treated as if it exists) are acceptable and can be coded in the inpatient setting, when documented at the
time of discharge.
Thank you,
Julieta Mccloud RN
CDI Specialist
[place] [facility]
Please use your independent medical judgment in providing your response.
== END 2025-10-09 18:31 | disposition home or self-care (01) | DRG 196 ==
LOC: 4 WEST ACU 03:22
PROVIDERS: Hospitalist; Physician Assistant; ADMITTING PHYSICIAN Internal Medicine; ATTENDING PHYSICIAN Internal Medicine; CONSULT PHYSICIAN Internal Medicine; EMERGENCY PHYSICIAN Emergency Medicine; FAMILY PHYSICIAN Family Medicine; OTHER PHYSICIAN Internal Medicine Hematology & Oncology
DX: J84.10 Pulmonary fibrosis, unspecified (principal); D61.810 Antineoplastic chemotherapy induced pancytopenia; E11.10 Type 2 diabetes mellitus with ketoacidosis without coma; K76.6 Portal hypertension; E87.1 Hypo-osmolality and hyponatremia; N17.9 Acute kidney failure, unspecified; C34.31 Malignant neoplasm of lower lobe, right bronchus or lung; J43.9 Emphysema, unspecified; F32.A Depression, unspecified; I35.0 Nonrheumatic aortic (valve) stenosis; E11.21 Type 2 diabetes mellitus with diabetic nephropathy; I10 Essential (primary) hypertension; E03.9 Hypothyroidism, unspecified; E78.00 Pure hypercholesterolemia, unspecified; R09.02 Hypoxemia; R06.89 Other abnormalities of breathing; T45.1X5A Adverse effect of antineoplastic and immunosuppressive drugs, initial encounter; E11.65 Type 2 diabetes mellitus with hyperglycemia; T38.0X5A Adverse effect of glucocorticoids and synthetic analogues, initial encounter; Y92.9 Unspecified place or not applicable; Z79.890 Hormone replacement therapy; Z79.51 Long term (current) use of inhaled steroids; Z79.4 Long term (current) use of insulin; Z86.11 Personal history of tuberculosis; Z90.49 Acquired absence of other specified parts of digestive tract; Z88.1 Allergy status to other antibiotic agents; Z88.0 Allergy status to penicillin; Z88.2 Allergy status to sulfonamides; Z91.048 Other nonmedicinal substance allergy status; Z92.21 Personal history of antineoplastic chemotherapy; Z87.891 Personal history of nicotine dependence; Z79.85 Long-term (current) use of injectable non-insulin antidiabetic drugs; Z85.828 Personal history of other malignant neoplasm of skin; Z85.05 Personal history of malignant neoplasm of liver
CPT/HCPCS: 71275; 80048; 80053; 80061; 81003; 81015; 82947; 82962; 83036; 83735; 83880; 84145; 84443; 85025; 85027; 85652; 86140; 87086; 87449; 87502; 87811; 87899; 93005; 94640; 96361; 96374; 96375; 97116; 97162; 99285; Q9967

== ENCOUNTER 2025-10-21 20:48 | Emergency (ER) | payer OTHER, SELFPAY ==
[2025-10-21 20:51] VITALS: BP 105/38
[2025-10-21 21:04] LABS: Hematocrit 28.9 % (37.0-47.0); Hemoglobin 10.7 g/dL (12.0-16.0); Mean Corp Hgb Conc. 37.0 g/dL (33.0-37.0); Mean Corpuscular Volume 89.5 fL (81.0-99.0); Nucleated Red Blood Cells % 0 %; Platelet Count 83 10^3/uL (130-400); Red Cell Dist. Width 13.2 % (11.5-14.5)
[2025-10-21 21:22] LABS: ALT (SGPT) 14 U/L (0-35); AST (SGOT) 25 U/L (14-36); Albumin 3.5 g/dl (3.5-5.0); Alkaline Phosphatase 50 U/L (38-126); Blood Urea Nitrogen 32 mg/dl (7-17); Calcium 8.9 mg/dl (8.4-10.2); Carbon Dioxide 21 mmol/L (22-30); Chloride 104 mmol/L (98-107); Glucose 63 mg/dl (70-99); Potassium 4.1 mmol/L (3.5-5.1); Sodium 130 mmol/L (135-145); Total Protein 6.2 g/dl (6.3-8.2); eGFR 41.57
[2025-10-21 21:24] LABS: Troponin I < 0.012 ng/ml
[2025-10-22 00:47] VITALS: BMI 19.7
[2025-10-22 00:51] VITALS: BP 117/38
--- NOTE | 2025-10-22 00:53 | EDRN ---
Pt accompanied by her boyfriend. Pt says she almost passed out three times today when she stood up. Pt has had intermittent nausea and vomited yesterday morning. No fever/chills/cough. Pt had 5 sharp pains in her chest yesterday but none today.
No sob, abd pain, constipation. Pt has chronic diarrhea and decreased appetite. Pt being treated for lung cancer - last chemo August. Pt had pet scan day before and is waiting to see Dr Herrera after Nov 01 to review results. Pt
with hx low platelets and has had two blood transfusions. Pt adds she has had a lot of heartburn.
[2025-10-22 01:00] VITALS: BP 113/50
--- NOTE | 2025-10-22 01:51 | ED.GENMED ---
History of Present Illness
<Morro Badillo DO, Resident - Last Filed: 10/22/25 06:55>
General
Chief Complaint: Weakness
Source: patient
Exam Limitations: none
Time Seen by Provider: 10/22/25 01:21
Nursing documentation reviewed up to this point in time: agreed with
History of Present Illness
History of Present Illness:
Adelaide Walker is a pleasant 80F in no acute distress, with PMHx of SCC of the lung, ILD, IDDM, HTN, hypothyroid and HLD. She was also recently admitted for ILD flare and discharged on steroid taper as well as a decreased insulin requirement. Opdivo
was discontinued at that hospitalization. She presents to the ED today for decreased PO intake in the setting of decreased appetite as well as intermittent nausea x 2 weeks and one episode of vomiting earlier today. Patient also c/o thoracic back
pain that preceded her last hospitalization. Patient was given a opioid Rx at last discharge, but states she does not want to take the medication. States she does not want to take OTC pain meds either. Notes she takes her sugars 3x/day and that her
sugars have been running between 140-160 despite low appetite. She denies any hypoglycemic events at home. Overall patient states she feels weak, and feels dizzy often when getting out of bed.
Review of Systems
<Morro Badillo DO, Resident - Last Filed: 10/22/25 06:55>
Review of Systems
Allergies reviewed?: Yes
All Other Systems: ROS reviewed and negative except as documented in HPI and ROS
Phy Exam
<Morro Badillo DO, Resident - Last Filed: 10/22/25 06:55>
Physical Exam
Physical Exam:
General: pleasant, frail female in no acute distress
HEENT: normocephalic, atraumatic, sclera anicteric, dry MM
Lungs: normal WOB, bilateral diffuse crackles consistent with ILD
CV: no JVD, ABDIRASHID consistent with , otherwise nl s1,s2
Abdomen: soft, nondistended, NTTP
MSK: no clubbing, no cyanosis, no edema
Neuro: awake, alert
Psych: calm, normal affect
Scores
<Morro Badillo DO, Resident - Last Filed: 10/22/25 06:55>
Heart Failure Risk
Heart Failure Risk Score: Not Applicable
Heart Score for Chest Pain Patients
STEMI patient?: Not applicable
Withdrawal Assessment of Alcohol
Withdrawal Assessment Completed?: Not applicable
Course
<Morro Badillo DO, Resident - Last Filed: 10/22/25 06:55>
Orders/Labs/Results
Orders:
Orders
10/21/25 20:50
Electrocardiogram (*1) Urgent
Reason for Study: Fatigue / Weakness
EKG- Treatment ONCE
10/21/25 20:56
Complete Blood Count/With Diff Urgent
Comprehensive Metabolic Panel Urgent
Magnesium Urgent
Comment: ADD ON
Troponin I Urgent
10/22/25 01:56
Add On- LAB Stat
Tests Added?: Magnesium
10/22/25 02:00
Orthostatic VS- Treatment ONCE
10/22/25 02:01
0.9% Sodium Chloride 1000 ml [Nss] 1,000 ml IV BOLUS
10/22/25 02:41
Encourage PO Hydration-Treatme ONCE
Abnormal Lab Results
10/21/25
20:56
RBC 3.23 L 10^6/uL
(4.20-5.40)
Hgb 10.7 L g/dL
(12.0-16.0)
Hct 28.9 L %
(37.0-47.0)
MCH 33.1 H pg
(27.0-31.0)
Plt Count 83 L 10^3/uL
(130-400)
Lymphocytes % 20.3 L %
(20.5-51.1)
Sodium 130 L mmol/L
(135-145)
Carbon Dioxide 21 L mmol/L
(22-30)
BUN 32 H mg/dl
(7-17)
Creatinine 1.3 H mg/dL
(0.6-1.0)
Glucose 63 L mg/dl
(70-99)
Total Protein 6.2 L g/dl
(6.3-8.2)
10/21/25 20:56
10/21/25 20:56
Vital Signs
Initial and Last Documented VS:
Initial Vital Signs
Temp Pulse Resp BP Pulse Ox
98.1 F 78 16 105/38 98
10/21/25 20:51 10/21/25 20:51 10/21/25 20:51 10/21/25 20:51 10/21/25 20:51
Last Documented Vital Signs
Temp Pulse Resp BP Pulse Ox
98.4 F 82 17 106/50 98
10/22/25 00:52 10/22/25 04:00 10/22/25 04:00 10/22/25 04:00 10/22/25 01:51
<Zora Ruffin, DO - Last Filed: 10/22/25 04:59>
Orders/Labs/Results
Orders:
Orders
10/21/25 20:50
Electrocardiogram (*1) Urgent
Reason for Study: Fatigue / Weakness
EKG- Treatment ONCE
10/21/25 20:56
Complete Blood Count/With Diff Urgent
Comprehensive Metabolic Panel Urgent
Magnesium Urgent
Comment: ADD ON
Troponin I Urgent
10/22/25 01:56
Add On- LAB Stat
Tests Added?: Magnesium
10/22/25 02:00
Orthostatic VS- Treatment ONCE
10/22/25 02:01
0.9% Sodium Chloride 1000 ml [Nss] 1,000 ml IV BOLUS
10/22/25 02:41
Encourage PO Hydration-Treatme ONCE
Abnormal Lab Results
10/21/25
20:56
RBC 3.23 L 10^6/uL
(4.20-5.40)
Hgb 10.7 L g/dL
(12.0-16.0)
Hct 28.9 L %
(37.0-47.0)
MCH 33.1 H pg
(27.0-31.0)
Plt Count 83 L 10^3/uL
(130-400)
Lymphocytes % 20.3 L %
(20.5-51.1)
Sodium 130 L mmol/L
(135-145)
Carbon Dioxide 21 L mmol/L
(22-30)
BUN 32 H mg/dl
(7-17)
Creatinine 1.3 H mg/dL
(0.6-1.0)
Glucose 63 L mg/dl
(70-99)
Total Protein 6.2 L g/dl
(6.3-8.2)
10/21/25 20:56
10/21/25 20:56
Vital Signs
Initial and Last Documented VS:
Initial Vital Signs
Temp Pulse Resp BP Pulse Ox
98.1 F 78 16 105/38 98
10/21/25 20:51 10/21/25 20:51 10/21/25 20:51 10/21/25 20:51 10/21/25 20:51
Last Documented Vital Signs
Temp Pulse Resp BP Pulse Ox
98.4 F 82 17 106/50 98
10/22/25 00:52 10/22/25 04:00 10/22/25 04:00 10/22/25 04:00 10/22/25 01:51
<Morro Badillo DO, Resident - Last Filed: 10/22/25 06:55>
MDM/Problems Addressed
MDM/Problems Addressed:
80F w/ PMHx of lung SCC, ILD, IDDM, recently admitted for ILD flare and d/c on steroid taper/change in insulin regimen who presented for decreased PO intake, intermittent nausea, and one episode of vomiting this morning, as well as chronic back
pain. Labs show a mild anemia, but improved from prior, and a mild hypoglycemia of 63. Troponin negative, EKG, no change from priot. Patient endorses sugars in the 140s-160s at home. Appears dry on exam. Given 1L bolus NS. Encouraged to increase PO
intake. Orthostatics negative. Patient feeling much better after fluid bolus. Feels comfortable going home. Will prescribe Reglan for as needed nausea. Recommend prompt follow-up with oncologist.
<Morro Badillo DO, Resident - Last Filed: 10/22/25 06:55>
*Pulse Oximetry
SaO2: 98
Oxygen Mode of Delivery: Room air
Patient hypoxic: no
*Critical Care Note
Total Time (30-74mins, 75-104mins- exclusive of procedures): Not Applicable
ED Attending Note
<Morro Badillo DO, Resident - Last Filed: 10/22/25 06:55>
-
Portions of this chart may have been created with voice recognition software.� Occasional wrong word or��sound alike� substitutions may have occurred due to the inherent limitations of voice recognition software.
<Zora Ruffin DO - Last Filed: 10/22/25 04:59>
ED Attending Note
Patient seen and examined by attending physician: Yes
I performed a history and physical exam of patient and discussed management with resident, I reviewed resident's note and agree with documented findings and plan of care.: Yes
ED Attending Note:
This is an 80-year-old woman with significant past medical history including squamous cell carcinoma of the lung, receiving chemotherapy as well as Opdivo. History of hypothyroidism, insulin-dependent diabetes, hypertension, hyperlipidemia. Recent
hospitalization 2 weeks ago for profound weakness, poor appetite hypoxia thought to be related to newer onset interstitial lung disease versus immunotherapy related pneumonitis. Started on steroids, insulin adjusted. Opdivo has since been
discontinued. Discharge to home on the with prednisone taper that she completed approximately 5 days ago.
Since discharge home she continues with poor appetite, intermittent nausea and did have an episode of vomiting earlier today. She reports slow weight loss over the past month or 2.
She has had some chronic ongoing upper back pain. Has been prescribed oxycodone which she has not been taking. No recent falls.
80-year-old woman appears her stated age, bright and alert, pleasant, appears in no acute distress. Accompanied by her .
HEENT: Oral mucosa is moist.
Heart is regular rate and rhythm.
Lungs are clear to auscultation. No respiratory distress. Normal pulse ox.
Abdomen is soft without appreciable tenderness.
Extremities without clubbing or cyanosis no edema. Peripheral pulses are full and equal.
Neuro: Awake alert and oriented x 3. Motor strength is 5/5 bilaterally. Gross sensation is intact. No focal neurodeficits.
Concern for progression of known lung cancer, dehydration, electrolyte abnormality, less likely Eaton-Lambert syndrome, adrenal insufficiency. Less likely thyroid disorder. Thyroid function within normal limits earlier this month.
Labs thus far reveal mild anemia but overall improved. Normal white blood cell count of 6.5. Platelet count of 83, stable and unchanged.
Chemistries reveal very mild hyponatremia at 130, BUN of 32, at her baseline, mild uptrend in creatinine to 1.3.
Mild hypoglycemia at 63. Patient reports blood glucose was 160 upon arrival. Has had no hypoglycemic episodes at home.
Normal troponin.
EKG shows normal sinus rhythm at 75. Normal axis. Borderline long QT. Poor R wave anteriorly. No acute ST-T wave abnormalities and overall unchanged from previous October 06.
Will check orthostatic vital signs and I suspect at least a mild element of dehydration. Will check magnesium. Will give a liter of normal saline solution and will trial oral fluids.
At this point no indication for imaging.
04:30
Patient feeling improved after IV fluids.
Tolerating oral fluids.
Orthostatic vital signs are negative.
Feels comfortable going home.
Will prescribe Reglan for as needed nausea.
Recommend prompt follow-up with oncologist.
Discharge Plan
Departure
Patient Disposition: Home (Routine Discharge)
Date of Disposition: 10/22/25
Time of Disposition: 04:37
Patient with high blood pressure during this ER visit?: No
Condition: Fair
Discharge Problem:
Nausea, Decreased oral intake
Prescriptions:
New
metoclopramide HCl [Reglan] 5 mg tablet
5 mg PO AC Qty: 10 0RF
No Action
Ozempic 1 mg/dose (4 mg/3 mL) Pen Injector
1 mg SC QWEEK
Rx Instructions:
Q
benazepril 40 mg Tablet
40 mg PO BID
fluoxetine 40 mg Capsule
40 mg PO NOON
amlodipine 5 mg Tablet
5 mg PO BID
levothyroxine 100 mcg Tablet
100 mcg PO NOON
Rx Instructions:
added an extra 100mcg weekly on Wednesdays
zolpidem [Ambien] 5 mg Tablet
2.5 mg PO HS
albuterol sulfate 90 mcg/actuation Hfa Aerosol Inhaler
1 inh INHALATION PRN PRN (Reason: wheezing,sob)
fenofibrate 160 mg Tablet
160 mg PO HS
pantoprazole 40 mg Tablet,Delayed Release (Dr/Ec)
40 mg PO DAILY Qty: 30 0RF
insulin aspart U-100 100 unit/mL (3 mL) Insulin Pen
6 unit SC AC Qty: 15 0RF
insulin glargine [Lantus Solostar U-100 Insulin] 100 unit/mL (3 mL) Insulin Pen
See Rx Instructions .ROUTE .COMPLEX Qty: 15 0RF
Rx Instructions:
20units at AM AND 12 units at PM
cyanocobalamin (vitamin B-12) 500 mcg Tablet
500 mcg PO MOONEY
Referrals:
Julián Evans MD [Family Provider, [facility]]
Activity Restrictions/Additional Instructions:
You should follow up with your oncologist/PCP at your earliest convenience for additional recommendations.
We discussed increasing your oral intake in order to meet your daily caloric needs.
I have prescribed an as needed medication for nausea.
We discussed the need to stay properly hydrated.
You may continue to take the pain medications already prescribed to you, or over the counter pain medications as needed for your back pain.
Interventions
Interventions:
*General Assessment Last Done: 10/22/25 00:47
*Neglect/Abuse Screening Last Done: 10/21/25 20:53
*ED COVID-19 Vaccine History Last Done: 10/22/25 00:47
*ED Influenza Vaccine History Last Done: 10/22/25 00:47
[facility] Risk Assessment Tool Last Done: 10/22/25 00:47
*Risk Screen - Suicide (C-SSRS) Last Done: 10/21/25 20:53
*Nursing Disposition Last Done: 10/22/25 05:05
ED- Cardiac Assessment Last Done: 10/22/25 01:09
ED- Neurological Assessment Last Done: 10/22/25 01:09
ED- Pulmonary Assessment Last Done: 10/22/25 01:09
Discharge Date and Time
Discharge Date/Time: 10/22/25 05:05
Print Language: [place]
[2025-10-22 02:00] VITALS: BP 108/45
[2025-10-22 02:09] VITALS: BP 100/48; BP 95/40; BP 99/46; PULSE 72; PULSE 74; PULSE 80
[2025-10-22 02:18] LABS: Magnesium 1.6 mg/dl (1.6-2.3)
[2025-10-22] MEDS: NSS 1000 IV (02:19)
--- NOTE | 2025-10-22 02:22 | EDRN ---
Pt asymptomatic during ortho signs
[2025-10-22 03:00] VITALS: BP 120/45
[2025-10-22 04:00] VITALS: BP 106/50
== END 2025-10-22 05:05 | disposition home or self-care (01) ==
LOC: EMR 20:48
PROVIDERS: Emergency Medicine; EMERGENCY PHYSICIAN Emergency Medicine; FAMILY PHYSICIAN Family Medicine
DX: R11.0 Nausea (principal); R63.0 Anorexia; Z68.1 Body mass index [BMI] 19.9 or less, adult; E87.1 Hypo-osmolality and hyponatremia; D64.9 Anemia, unspecified; C34.90 Malignant neoplasm of unspecified part of unspecified bronchus or lung; E10.649 Type 1 diabetes mellitus with hypoglycemia without coma; I10 Essential (primary) hypertension; E78.5 Hyperlipidemia, unspecified; J84.9 Interstitial pulmonary disease, unspecified; E03.9 Hypothyroidism, unspecified; M54.9 Dorsalgia, unspecified; G89.29 Other chronic pain; Z79.4 Long term (current) use of insulin
CPT/HCPCS: 99284; 96360; 80053; 83735; 84484; 85025; 93005

== ENCOUNTER 2025-10-29 07:46 | Inpatient (IN) | payer OTHER, SELFPAY ==
[2025-10-23] VITALS (16 sets, daily range): BP systolic 97–122; BP diastolic 36–61; PULSE 68–77
[2025-10-23 11:18] LABS: Hematocrit 25.8 % (37.0-47.0); Hemoglobin 9.4 g/dL (12.0-16.0); Mean Corp Hgb Conc. 36.4 g/dL (33.0-37.0); Mean Corpuscular Volume 91.5 fL (81.0-99.0); Nucleated Red Blood Cells % 0 %; Platelet Count 78 10^3/uL (130-400); Red Cell Dist. Width 13.4 % (11.5-14.5)
[2025-10-23 11:19] LABS: ALT (SGPT) 14 U/L (0-35); AST (SGOT) 30 U/L (14-36); Albumin 3.3 g/dl (3.5-5.0); Alkaline Phosphatase 51 U/L (38-126); Blood Urea Nitrogen 24 mg/dl (7-17); Calcium 8.3 mg/dl (8.4-10.2); Carbon Dioxide 21 mmol/L (22-30); Chloride 104 mmol/L (98-107); Glucose 105 mg/dl (70-99); Lipase 177 U/L (23-300); Magnesium 1.6 mg/dl (1.6-2.3); Potassium 4.2 mmol/L (3.5-5.1); Sodium 131 mmol/L (135-145); Total Protein 5.6 g/dl (6.3-8.2); eGFR 50.80
--- NOTE | 2025-10-23 11:22 | ED.GENMED ---
History of Present Illness
<ONDINA Guzman Jr. Last Filed: 10/23/25 13:42>
General
Chief Complaint: Weakness
Source: patient
Exam Limitations: none
Time Seen by Provider: 10/23/25 10:10
Nursing documentation reviewed up to this point in time: agreed with
History of Present Illness
History of Present Illness:
80-year-old female past medical history of emphysema, current lung cancer last chemo was over a month ago, diabetes, aortic stenosis presenting to the emergency department today with multiple concerns. First which of generalized weakness fatigue
ongoing decreased appetite and intermittent vomiting. This has been ongoing for multiple days. Had a syncopal episode yesterday fell hitting her right hip and believes she also hit her chin. Denies any specific chest pain does seem to catch her
breath occasionally during the day.
Review of Systems
<ONDINA Gzuman Jr. Last Filed: 10/23/25 13:42>
Review of Systems
Allergies reviewed?: Yes
All Other Systems: ROS reviewed and negative except as documented in HPI and ROS
Phy Exam
<Shahid Massey Jr., PA-C - Last Filed: 10/23/25 13:42>
Physical Exam
Physical Exam:
GENERAL: Alert , in no apparent distress
EYE: pupils equal and reactive
NECK: Supple, no significant adenopathy.
ENT: o/p clr, mmm.
CARDIAC: Regular rate and rhythm .
LUNGS: Clear breath sounds bilaterally, no acute respiratory distress, no wheezes/rales/rhonchi
ABDOMEN: Soft, without focal tenderness, no r/g, no cvat
NEUROLOGICAL: Alert and oriented, no focal neuro deficits
SKIN: Warm and dry, skin intact.
MUSCULOSKELETAL: No edema, well perfused.
PSYCH: Normal and appropriate interaction.
Course
<Shahid Massey Jr., PA-C - Last Filed: 10/23/25 13:42>
Orders/Labs/Results
Orders:
Orders
10/23/25 10:11
EKG [Electrocardiogram (*1)] Urgent
Reason for Study: Syncope
EKG- Treatment ONCE
10/23/25 10:49
0.9% Sodium Chloride 1000 ml [Nss] 1,000 ml IV BOLUS
10/23/25 10:54
Complete Blood Count/With Diff Urgent
Comprehensive Metabolic Panel Urgent
Free T4 Urgent
Lipase Urgent
Magnesium Urgent
TSH Reflex To Free T4 Urgent
10/23/25 11:12
Urinalysis Reflex To Culture Urgent
Date Specimen was Collected: 10/23/25
Time Specimen was Collected: 11:11
Urine Microscopic Reflex Cult Urgent
Urine Culture Urgent
KEEGAN Source: U
Specimen Description:
Obtained by: Random
Date Specimen was Collected: 10/23/25
Time Specimen was Collected: 11:11
10/23/25 11:21
CT Head W/o Iv Contrast Urgent
Comment:
Reason For Exam: fall hit head
Hip, Right 2-3 Views [CR Hip - RT w/wo Pel 2-3 Vw*] Urgent
Comment:
Reason For Exam: fall hip pain
Include a pelvis x-ray?: Yes
10/23/25 11:44
Troponin I Urgent
10/23/25 13:07
Orthostatic VS- Treatment ONCE
10/23/25 13:41
CT Chest PE Study Urgent
Comment:
Reason For Exam: syncope
Abnormal Lab Results
10/23/25 10/23/25
10:54 11:12
WBC 4.0 L 10^3/uL
(4.8-10.8)
RBC 2.82 L 10^6/uL
(4.20-5.40)
Hgb 9.4 L g/dL
(12.0-16.0)
Hct 25.8 L %
(37.0-47.0)
MCH 33.3 H pg
(27.0-31.0)
Plt Count 78 L 10^3/uL
(130-400)
Absolute Lymphs (auto) 0.8 L 10^3/uL
(1.2-3.4)
Monocytes % 10.6 H %
(1.7-9.3)
Sodium 131 L mmol/L
(135-145)
Carbon Dioxide 21 L mmol/L
(22-30)
BUN 24 H mg/dl
(7-17)
Creatinine 1.1 H mg/dL
(0.6-1.0)
Glucose 105 H mg/dl
(70-99)
Calcium 8.3 L mg/dl
(8.4-10.2)
Total Protein 5.6 L g/dl
(6.3-8.2)
Albumin 3.3 L g/dl
(3.5-5.0)
TSH (Reflex) 5.30 H uIU/ml
(0.47-4.68)
Urine Urobilinogen 2+ A
(Neg - 1+)
Leukocyte Esterase Rfl 2+ A
(Negative)
Urine WBC (Reflex) 11-15 A /HPF
(0-5)
Urine Bacteria (Reflex) Moderate A
(Negative)
Urine Albumin (Reflex) 1+ A
(Neg - Trace)
10/23/25 10:54
10/23/25 10:54
Vital Signs
Initial and Last Documented VS:
Initial Vital Signs
Temp Pulse Resp Pulse Ox
97.5 F 69 16 94
10/23/25 09:58 10/23/25 09:58 10/23/25 09:58 10/23/25 09:58
Last Documented Vital Signs
Temp Pulse Resp BP Pulse Ox
97.5 F 68 16 106/43 99
10/23/25 09:58 10/23/25 12:45 10/23/25 12:45 10/23/25 12:39 10/23/25 12:45
<Tiara Glass MD - Last Filed: 10/23/25 13:46>
Orders/Labs/Results
Orders:
Orders
10/23/25 10:11
EKG [Electrocardiogram (*1)] Urgent
Reason for Study: Syncope
EKG- Treatment ONCE
10/23/25 10:49
0.9% Sodium Chloride 1000 ml [Nss] 1,000 ml IV BOLUS
10/23/25 10:54
Complete Blood Count/With Diff Urgent
Comprehensive Metabolic Panel Urgent
Free T4 Urgent
Lipase Urgent
Magnesium Urgent
TSH Reflex To Free T4 Urgent
10/23/25 11:12
Urinalysis Reflex To Culture Urgent
Date Specimen was Collected: 10/23/25
Time Specimen was Collected: 11:11
Urine Microscopic Reflex Cult Urgent
Urine Culture Urgent
KEEGAN Source: U
Specimen Description:
Obtained by: Random
Date Specimen was Collected: 10/23/25
Time Specimen was Collected: 11:11
10/23/25 11:21
CT Head W/o Iv Contrast Urgent
Comment:
Reason For Exam: fall hit head
Hip, Right 2-3 Views [CR Hip - RT w/wo Pel 2-3 Vw*] Urgent
Comment:
Reason For Exam: fall hip pain
Include a pelvis x-ray?: Yes
10/23/25 11:44
Troponin I Urgent
10/23/25 13:07
Orthostatic VS- Treatment ONCE
10/23/25 13:41
CT Chest PE Study Urgent
Comment:
Reason For Exam: syncope
Abnormal Lab Results
10/23/25 10/23/25
10:54 11:12
WBC 4.0 L 10^3/uL
(4.8-10.8)
RBC 2.82 L 10^6/uL
(4.20-5.40)
Hgb 9.4 L g/dL
(12.0-16.0)
Hct 25.8 L %
(37.0-47.0)
MCH 33.3 H pg
(27.0-31.0)
Plt Count 78 L 10^3/uL
(130-400)
Absolute Lymphs (auto) 0.8 L 10^3/uL
(1.2-3.4)
Monocytes % 10.6 H %
(1.7-9.3)
Sodium 131 L mmol/L
(135-145)
Carbon Dioxide 21 L mmol/L
(22-30)
BUN 24 H mg/dl
(7-17)
Creatinine 1.1 H mg/dL
(0.6-1.0)
Glucose 105 H mg/dl
(70-99)
Calcium 8.3 L mg/dl
(8.4-10.2)
Total Protein 5.6 L g/dl
(6.3-8.2)
Albumin 3.3 L g/dl
(3.5-5.0)
TSH (Reflex) 5.30 H uIU/ml
(0.47-4.68)
Urine Urobilinogen 2+ A
(Neg - 1+)
Leukocyte Esterase Rfl 2+ A
(Negative)
Urine WBC (Reflex) 11-15 A /HPF
(0-5)
Urine Bacteria (Reflex) Moderate A
(Negative)
Urine Albumin (Reflex) 1+ A
(Neg - Trace)
10/23/25 10:54
10/23/25 10:54
Vital Signs
Initial and Last Documented VS:
Initial Vital Signs
Temp Pulse Resp Pulse Ox
97.5 F 69 16 94
10/23/25 09:58 10/23/25 09:58 10/23/25 09:58 10/23/25 09:58
Last Documented Vital Signs
Temp Pulse Resp BP Pulse Ox
97.5 F 68 16 106/43 99
10/23/25 09:58 10/23/25 12:45 10/23/25 12:45 10/23/25 12:39 10/23/25 12:45
<Shahid Massey Jr., PA-C - Last Filed: 10/23/25 13:42>
MDM/Problems Addressed
MDM/Problems Addressed:
80-year-old female presenting to the emergency department today with concerns of generalized weakness fatigue nausea vomiting. Syncopal episode yesterday fell hit her right hip ongoing hip pain also hit her face. On arrival here vital signs are
normal patient in no distress. Labs obtained showing hemoglobin 9.4 slightly below previous level but near her baseline. Additionally platelet count 78 slightly below baseline in the 80s. Slightly elevated creatinine level however at patient's
baseline slightly low sodium level. She was given fluids here. Troponin negative EKG normal urine with significant amount of squamous epithelial cells unlikely be infected. Considering her recent syncopal episode CT scan of the head was obtained
that did not show any emergent findings as well as a normal hip x-ray of the right hip. Considering she syncopized multiple times over the past few days plan to admit for further assessment
<Shahid Massey Jr., PA-C - Last Filed: 10/23/25 13:42>
*Pulse Oximetry
SaO2: 94
Oxygen Mode of Delivery: Room air
Patient hypoxic: no (99)
*Critical Care Note
Total Time (30-74mins, 75-104mins- exclusive of procedures): Not Applicable
ED Attending Note
<Shahid Massey Jr., PA-C - Last Filed: 10/23/25 13:42>
-
Portions of this chart may have been created with voice recognition software.� Occasional wrong word or��sound alike� substitutions may have occurred due to the inherent limitations of voice recognition software.
<Tiara Glass MD - Last Filed: 10/23/25 13:46>
ED Attending Note
Patient seen and examined by attending physician: Yes
I performed the substantive portion of visit, reviewed & personally made and approve the management plan that is documented in note by myself or VEE.: Yes
ED Attending Note:
80-year-old female with multiple episodes of near syncope, developed an episode of actual syncope yesterday with fall to ground, now with R hip pain. Preceding events, she feels lightheaded, but no cp/sob/n/v/f/c/headache/neck pain. Events are
short lived with spont return to consciousness. No sz like activity noted. Family states that pt has poor po intake. On exam, pt awake alert but thin and tired appearing. Hrt rrr with systolic murmur noted. No ttp R Hip, FROM without
hesitation, no deformity. Syncope/near syncope may be related to hx , medication, orthostatis, etc etc. For admission and further eval. CT r/o PE pending.
Discharge Plan
Departure
Patient Disposition: Admit
Date of Disposition: 10/23/25
Time of Disposition: 13:40
Admit to: Telemetry
Admit to doctor: Ken
Presentation/result/management discussed w/ accepting MD/DO: Hospitalist
Patient with high blood pressure during this ER visit?: No
Condition: Good
Covid-19: Not Applicable
Discharge Problem:
Syncope, Hyponatremia
Prescriptions:
No Action
Ozempic 1 mg/dose (4 mg/3 mL) Pen Injector
1 mg SC FR
Rx Instructions:
Q
benazepril 40 mg Tablet
80 mg PO DAILY
fluoxetine 40 mg Capsule
40 mg PO NOON
amlodipine 5 mg Tablet
5 mg PO BID
levothyroxine 100 mcg Tablet
100 mcg PO NOON
zolpidem [Ambien] 5 mg Tablet
2.5 mg PO HS
fenofibrate 160 mg Tablet
160 mg PO HS
cyanocobalamin (vitamin B-12) 500 mcg Tablet
500 mcg PO MOONEY
oxycodone-acetaminophen 5-325 mg Tablet
1 tab PO Q4H PRN (Reason: mild pain)
insulin aspart U-100 [Novolog FlexPen U-100 Insulin] 100 unit/mL (3 mL) Insulin Pen
6 unit SC AC
Patient Comments:
10/23/2025, give if BS>100.
insulin glargine [Lantus Solostar U-100 Insulin] 100 unit/mL (3 mL) Insulin Pen
20 unit SC DAILY
insulin glargine [Lantus Solostar U-100 Insulin] 100 unit/mL (3 mL) Insulin Pen
12 unit SC HS
pantoprazole 40 mg tablet,delayed release (DR/EC)
40 mg PO NOON
Referrals:
Julián Evans MD [Family Provider, Family Practice]
Interventions
Interventions:
*General Assessment Last Done: 10/23/25 09:58
*Neglect/Abuse Screening Last Done: 10/23/25 09:58
*ED COVID-19 Vaccine History Last Done: 10/23/25 11:49
*ED Influenza Vaccine History Last Done: 10/23/25 11:49
[facility] Fall Risk Assessment Tool Last Done: 10/23/25 11:49
*Risk Screen - Suicide (C-SSRS) Last Done: 10/23/25 11:52
ED- Cardiac Assessment Last Done: 10/23/25 11:49
ED- Neurological Assessment Last Done: 10/23/25 11:49
ED- Pulmonary Assessment Last Done: 10/23/25 11:49
Discharge Date and Time
Print Language: SAMI
[2025-10-23 11:24] LABS: Urine Character Clear (Clear)
[2025-10-23] MEDS: NSS 1000 IV (11:41)
[2025-10-23 12:03] LABS: Urine Squamous Cell >30 /LPF (Few)
[2025-10-23 12:04] LABS: Urine Red Blood Cell 0-2 /HPF (0-2)
[2025-10-23 12:19] LABS: Troponin I < 0.012 ng/ml
--- NOTE | 2025-10-23 13:43 | HPS.HSE ---
Addendum entered and electronically signed by Reuben Rogers MD 10/23/25 15:21:
10/23/26 CTC PE study
1. No evidence of central, lobar or pulmonary embolism.
2. 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 Superimposed pneumonitis or pneumonia would be difficult to exclude.
3. Similar appearance of the 1.3 cm nodule in the inferior right lower lung consistent with known malignancy. Additionally there is similar appearance of the sclerotic focus within the T3 vertebral body which likely represents an osseous metastasis.
Addendum entered and electronically signed by Reuben Rogers MD 10/23/25 14:52:
07/17/25 TTE
1. Normal left ventricular chamber size myocardial thickness and systolic function left ventricular ejection fraction 65 to 70%.
2. Moderate aortic stenosis with with peak and mean aortic valve gradients of 49 to 29 mmHg respectively. Mild aortic regurgitation.
3. Compared to a prior echo from July 2024, aortic valve gradients have progressed from 21 and 13 mmHg respectively in that study.
- would avoid tight BP control in view of moderate aortic stenosis
Addendum entered and electronically signed by Reuben Rogers MD 10/23/25 14:42:
Code status ; per daughter she is DNR
Original Note:
Family Physician
-
Family Physician: Julián Evans
Chief Complaint
-
passing out many times and weakness
History of Present Illness
HPI
80F HX mphysema, current lung cancer last chemo was over a month ago, diabetes, aortic stenosis
seen at e emergency department today with multiple concerns.
- generalized weakness fatigue ongoing decreased appetite and intermittent vomiting
- ongoing for multiple days
- syncopal episode yesterday fell hitting her right hip and believes she also hit her chin.
Denies any specific chest pain does seem to catch her breath occasionally during the day.
On arrival here vital signs are normal patient in no distress.
Medical History
Past Medical History
Past Medical History: Reports Cancer (Squamous cell cancer, history of liver cancer, skin cancer), HTN, Hypercholesterolemia, Hypothyroidism and IDDM
Past Surgical History: Reports Cholecystectomy and
Social History
Tobacco: Non-smoker
Alcohol: None
Drug: None
Family History
Family History: Not pertinent
Allergies / Home Medications
Allergies reflects when Allergies were last updated in [facility].
Home Medications with original date entered in [facility]
Allergy/Medication List:
Allergies
Allergy/AdvReac Type Severity Reaction Status Date / Time
amoxicillin Allergy gastro Verified 10/06/25 19:39
issues -
bleeding
and pain
ciprofloxacin (From Cipro) Allergy Itching Verified 10/06/25 19:39
erythromycin base Allergy Itching Verified 10/06/25 19:39
Sulfa (Sulfonamide Allergy swelling,itching,difficulty Verified 10/06/25 19:39
Antibiotics) breathing
antibiotic creams/drops Allergy swelling,extreme Uncoded 10/06/25 19:39
itching
vycril sutures Allergy rejection Uncoded 10/06/25 19:39
- area
never
healed
Home Medications
albuterol sulfate 90 mcg/actuation aerosol inhaler 1 inh inhalation PRN PRN wheezing,sob 01/17/25
amlodipine 5 mg tablet 10 mg PO HS 01/17/25
cyanocobalamin-liver extract tablet 1 tab PO .WEEKLY 01/17/25
fenofibrate 160 mg tablet 160 mg PO HS 01/17/25
fluoxetine 40 mg capsule 40 mg PO NOON 01/17/25
insulin glargine 100 unit/mL (3 mL) subcutaneous pen (Lantus Solostar U-100 Insulin) 32 unit SC BID 01/17/25
levothyroxine 100 mcg tablet 100 mcg PO NOON 01/17/25
zolpidem 5 mg tablet (Ambien) 2.5 mg PO HS 01/17/25
benazepril 40 mg tablet 40 mg PO BID 01/18/25
semaglutide 1 mg/dose (4 mg/3 mL) subcutaneous pen injector (Ozempic) 1 mg SC QWEEK 01/18/25
Opdivo 360 mg IV .Q3 WEEKS 03/27/25
Yervoy 57.1 mg IV .[id number] 03/27/25
carboplatin 286 mg IV .[id number] 03/27/25
paclitaxel protein-bound 100 mg intravenous suspension (Abraxane) 113 mg IV .Q 3 WEEKS 03/27/25
Review of Systems
-
Constitutional: Reports See HPI
EENT: Reports No Symptoms
Respiratory: Reports No Symptoms
Cardiac: Reports No Symptoms
Abdomen/GI: Reports No Symptoms
: Reports No Symptoms
Musculoskeletal: Reports No Symptoms
Skin: Reports No Symptoms
Neurological: Reports Weakness
Endocrine: Reports No Symptoms
Hematologic/Lymphatic: Reports No Symptoms
Psych: Reports No Symptoms
Physical Exam
Vital Signs
Vital Signs
Temp Pulse Resp BP Pulse Ox
97.5 F 68 16 106/43 99
10/23/25 09:58 10/23/25 12:45 10/23/25 12:45 10/23/25 12:39 10/23/25 12:45
Physical Exam
General: Well Developed, Well Nourished and No Apparent Distress
HEENT: NormoCephalic, Moist mucous membranes and Atraumatic
Respiratory: Clear
Cardiac: S1/S2 and Regular Rhythm; No Murmur or Rub
GI: Soft, Non Tender, Non Distended and Normal Bowel Sounds; No Organomegaly
Rectal: Deferred by Provider
Musculoskeletal: No Clubbing, No Cyanosis and No Edema
Skin: No Rash
Neuro: Nonfocal/grossly intact
Laboratory Results
-
10/23/25 10:54
10/23/25 10:54
Laboratory Results
Total Bilirubin 1.1 mg/dl (0.2-1.3) 10/23/25 10:54
AST 30 U/L (14-36) 10/23/25 10:54
ALT 14 U/L (0-35) 10/23/25 10:54
Alkaline Phosphatase 51 U/L (38-126) 10/23/25 10:54
Troponin I < 0.012 ng/ml 10/23/25 11:44
Lipase 177 U/L (23-300) 10/23/25 10:54
Data Reviewed
-
CT Scan: Report Reviewed by me
Medical Tests (Nuc Med, Echo, EKG etc): Report Reviewed by me
Lab Data: Labs Reviewed by me
Old Records: Reviewed
Impression/Plan
-
Vital Signs
Temp Pulse Resp BP Pulse Ox
97.5 F 68 16 106/43 99
10/23/25 09:58 10/23/25 12:45 10/23/25 12:45 10/23/25 12:39 10/23/25 12:45
10/23/25
11:08 10/23/25
12:00 10/23/25
12:39
Blood pressure 112/50 107/55 106/43
10/09/25 10/21/25 10/23/25
08:20 20:56 10:54
Sodium 134 L 130 L 131 L
10/21/25 10/23/25 10/23/25
20:56 10:54 11:44
WBC 4.0 L
Hgb 9.4 L
MCV 89.5 91.5
Plt Count 83 L 78 L
Carbon Dioxide 21 L
Creatinine 1.3 H 1.1 H
eGFR 41.57 50.80
Troponin I < 0.012
Albumin 3.3 L
10/23/25
10:54
Glucose 105 H
Calcium 8.3 L
10/23/25 CTC PE study pending
HCT : No acute intracranial abnormality noted.
07/17/25 TTE
1. Normal left ventricular chamber size myocardial thickness and systolic function left ventricular ejection fraction 65 to 70%.
2. Moderate aortic stenosis with with peak and mean aortic valve gradients of 49 to 29 mmHg respectively. Mild aortic regurgitation.
3. Compared to a prior echo from July 2024, aortic valve gradients have progressed from 21 and 13 mmHg respectively in that study.
Last hospitalist admission: 10/07/25 - 10/09/25
Malaise, most likely 2/2 acute respiratory inefficiency 2/2 pulmonary fibrosis and emphysema flare
DM type 2 with nephropathy
Hyperglycemia, most likely transient DKA
SCC of the lung
Anemia
Thrombocytopenia
ASSESSMENT & PLAN
Episode of Syncope without any osseus injury
- Relative hypotension presumed dehydration
- Mild renal insufficiency
- NEG HCT
- NRG TPNI
- Nl EKG normal
- UA: significant amount of squamous epithelial cells unlikely be infected.
- Ortho VSS
- Hold Benazepril and amlodipine due to hypotension
- IVF NS @ 60/H
- CTC to r/o PE to complete w/u - low suspicion for acute PE
Asymptomatic Hyponatremia : Chronic,somewhat slightly lower than baseline
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
- received 1 L NS at ER
- Ur Osm, Sr Osm , Ur Na
- Hold off further IVF
- Repeat Na in 6 hrs
- FR 1.2 L and tend Na
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
Anemia -- Hgb 9.4 slightly below previous level but near her baseline.
Chr Thrombocytopenia somewhat stable - platelet count 78 slightly below baseline in the 80s.
- trend Platelet
- managed by /Onco
HX pulmonary fibrosis and emphysema
- Bronchodilators PRN
DM type 2 with nephropathy
Normoglycemia
- c/w [employer] basl bolus regime
- ISS low
pHTN
� Holding benazepril, amlodipine due to hypotension
DVT Px: LMWH and monitor platelet count
Code: Full
OBS TLM
[2025-10-23] MEDS: PERCOCET 5/325 1 TABLET PO (15:28)
--- NOTE | 2025-10-23 17:02 | PTCARENOTE ---
Received pt from ED via stretcher. Stretcher placed next to bed and pt scooted over to bed with assist x1. pvc monitor placed. AAOx3. 2 L o2 present. Assessed and oriented to room. VSS. Call mcgrath within close reach. Will continue to monitor.
--- NOTE | 2025-10-23 17:08 | PTCARENOTE ---
Bed alarm placed and plugged in. [facility]. Family at bedside.
[2025-10-23 17:30] LABS: Glucose - Point of Care 85 mg/dl (70-99)
[2025-10-23] MEDS: NOVOLOG FLEXPEN-LOW RESISTANCE SC (17:36)
[2025-10-23] MEDS: NOVOLOG FLEXPEN SC (17:46)
[2025-10-23] MEDS: LOVENOX 40 MG SC (17:53)
[2025-10-23 21:26] LABS: Glucose - Point of Care 141 mg/dl (70-99)
[2025-10-23] MEDS: AMBIEN 2.5 MG PO (21:39)
[2025-10-23] MEDS: TRICOR 48 MG PO (21:41)
[2025-10-23] MEDS: LANTUS 0.12 UNITS SC (21:45)
[2025-10-24] VITALS (7 sets, daily range): BP systolic 88–128; BP diastolic 35–58; PULSE 75–78; BMI 19.8; BMI 19.9
[2025-10-24] MEDS: TUMS CHEWABLE TABLET 400 MG PO (06:38)
[2025-10-24] MEDS: ZOFRAN 4 MG IV (06:39)
[2025-10-24 06:59] LABS: Hematocrit 24.0 % (37.0-47.0); Hemoglobin 8.6 g/dL (12.0-16.0); Mean Corp Hgb Conc. 35.8 g/dL (33.0-37.0); Mean Corpuscular Volume 89.6 fL (81.0-99.0); Platelet Count 72 10^3/uL (130-400); Red Cell Dist. Width 13.4 % (11.5-14.5)
[2025-10-24 07:01] LABS: Blood Urea Nitrogen 16 mg/dl (7-17); Calcium 8.6 mg/dl (8.4-10.2); Carbon Dioxide 21 mmol/L (22-30); Chloride 104 mmol/L (98-107); Estimated Creatinine Clearance 37 ml/min; Glucose 100 mg/dl (70-99); Potassium 4.2 mmol/L (3.5-5.1); Sodium 130 mmol/L (135-145); eGFR 56.95
--- NOTE | 2025-10-24 07:38 | W.PN.HOSP.TC ---
Today's Communication/Plan
-
- Final urine cx pending
- Blood cx x2
- Check cortisol
- IVF
- Empiric zosyn once blood cx done
- Check lactic acid
Assessment / Plan
Assessment / Plan
80yo F with a hx of emphysema/pulmonary fibrosis, stage IV squamous cell lung ca (bone mets; s/p chemo/immunotherapy >1 mo ago), T2DM, & who presents with subacute nausea/vomiting/poor appetite and 2 days of dizziness with fall at home.
#Nausea/vomiting
#Low grade fever, FUO
#Lethargy, poor appetite
Potential infectious gastritis. No diarrhea, 2 weeks n/v. Obstructive sx not present, unlikely tumor progression leading to obstruction. LFTs wnl, non elevated bilirubin. No localizing abdominal tenderness c/f cholecystitis, cholangitis.
Pancreatitis unlikely to cause subacute course. CXR negative for PNA, no cough. Pt ambulatory, low c/f decubitus ulcers. Flu/covid negative. UA not c/f UTI. No indwelling lines. Potential element of adrenal insufficiency given hypotension &
hyponatremia. FUO, pending further w/u.
Today - temperature 100.7, BP 91/45, HR 86; WBC 3.1 (chronic).
- Final urine cx pending
- Blood cx x2
- Check cortisol
- IVF
- Empiric zosyn once blood cx done
- Check lactic acid
#Hyponatremia
Na 130, potential 2/2 SIADH in s/o lung cancer. Urine Na high 93, urine osm 580. C/w SIADH. Potential element of hypovolemic given n/v for 2 weeks.
- Continue to monitor
- IVF
#Syncopal episode
Episode of brief LOC/fall at home 10/23 following 2 days lightheadedness, w/o palpitations. EKG normal sinus. 10/23 CT head negative. 10/23 CT PE: without evidence of PE; demonstrated combined pulmonary fibrosis/emphysema w bilateral GGO, stable;
demonstrated 1.3cm nodule in inferior RLL c/w known malignancy; demonstrated T3 vertebral sclerotic focus c/w osseous mets. Orthostatic vitals 10/23 negative.
Likely 2/2 hypotension/hypovolemia in s/o days of nausea/vomiting and poor PO intake, w likely underlying viral GI infection.
- N/v plan as above
- IVF
#Anemia
#Thrombocytopenia
#Leukopenia
Likely 2/2 chronic dz. Hgb 8.6 today, baseline 8-10. Plt 72, baseline 80-90. WBC 3.1 (c/w baseline). Seems to be exacerbation of chronic/baseline cytopenias, likely in s/o infectious gastritis.
- Continue to trend CBC
- Transfuse if Hgb<7
#Chronic
#Lung cancer - s/p chemo/immunotherapy, not currently receiving; sees /Onco; planning for RT w Mayekar in new few weeks
#IDDM - low sliding scale insulin + home insulin regimen
# - known valvular dz
#Pulmonary fibrosis and emphysema - bronchodilators PRN
#Essential HTN - holding amlodipine & benazepril, given hypotension
#Global
- DVT ppx: lovenox
- Code: DNR
- Diet: regular
- Dispo: pending resolution of illness
Anticipated Discharge: > 48 hours
Subjective/Interval History
-
Date of Service: October 24, 2025
This am, patient endorsing ongoing lethargy. Feeling very weak and still nauseous. Confirms that has had n/v for about 2 weeks. No f/c or sick contacts. Confirms that 2 days ago she began feeling dizzy and with worsening lethargy, culminating in a
fall at home yesterday. States that she thinks she did lose consciousness. Denies any sensation of the room spinning, denies diplopia. Denies palpitations or CP. Denies diarrhea. Confirms that she has not received chemotherapy/immunosuppression in
the last year. Endorses poor appetite. Feels 'like a wet rag.'
Objective Data
-
Labs:
Laboratory Results
10/23/25 10/24/25
21:56 06:00
WBC 3.1 L
Hgb 8.6 L
Hct 24.0 L
Plt Count 72 L
Sodium Cancelled 130 L
Potassium 4.2
Chloride 104
Carbon Dioxide 21 L
BUN 16
Creatinine 1.0
Glucose 100 H
Calcium 8.6
Vital Signs:
Vital Signs
Temp Pulse Resp BP Pulse Ox
99.7 F 84 16 128/50 95
10/24/25 03:00 10/24/25 03:00 10/24/25 03:00 10/24/25 03:00 10/24/25 03:00
I&O
10/23/25 10/24/25 10/25/25
06:59 06:59 06:59
Intake Total 480 / 480
Balance 480 / 480
Review of Systems
-
History Source: Patient
Constitutional: Reports No Appetite, Weakness and Other (lethargy)
Respiratory: Reports No Symptoms
Cardiac: Reports No Symptoms
Abdomen/GI: Reports Nausea and Vomiting
Musculoskeletal: Reports No Symptoms
Skin: Reports No Symptoms
Neuro: Reports Lightheadedness
Physical Exam
-
General: Well Developed, Well Nourished and Other (lethargic)
HEENT: Normocephalic, Atraumatic and Moist Mucous Membranes
Respiratory: Clear to Auscultation and Non Labored Respirations
Cardiac: Regular Rhythm
GI: Soft, Nontender and Nondistended
Musculoskeletal: No Edema
Skin: Warm and Dry
Neuro: Awake and Alert
Psych: Calm
Data Reviewed
-
Total Time Spent with Patient (in minutes): 15
Critical Care Time (in minutes): 45
Diagnostic Radiology: Report Reviewed by me
CT Scan: Report Reviewed by me
Labs: Labs Reviewed by me
--- NOTE | 2025-10-24 08:24 | VNURNOTE ---
Addendum entered by Sumi Lora RN 10/29/25 09:47:
[facility] Resumption referral placed in [facility].
Original Note:
Chart reviewed. Patient is current with [facility]. Will continue to follow hospital course and DC plans.
[2025-10-24 08:48] LABS: Glucose - Point of Care 104 mg/dl (70-99)
[2025-10-24] MEDS: NOVOLOG FLEXPEN-LOW RESISTANCE SC ×3 (08:56→18:03)
[2025-10-24] MEDS: NOVOLOG FLEXPEN SC ×2 (08:57→18:03)
--- NOTE | 2025-10-24 08:57 | PTCARENOTE ---
Accucheck [id number], made aware, instructed this RN to hold scheduled 6 units NovoLog and 20 units of Lantus.
[2025-10-24 09:49] LABS: COVID-19 Antigen Negative (Negative)
[2025-10-24 11:26] LABS: Glucose - Point of Care 130 mg/dl (70-99)
[2025-10-24] MEDS: NSS 1000 IV ×2 (13:01→20:31)
[2025-10-24] MEDS: NOVOLOG FLEXPEN 6 UNITS SC (13:03)
[2025-10-24] MEDS: SYNTHROID 100 MCG PO (13:07)
[2025-10-24] MEDS: PROZAC 40 MG PO (13:07)
[2025-10-24] MEDS: PROTONIX 40 MG PO (13:07)
[2025-10-24] MEDS: PERCOCET 5/325 1 TABLET PO (13:16)
[2025-10-24] MEDS: ZOSYN 50 IV ×2 (14:03→20:32)
[2025-10-24 14:08] LABS: Cortisol, Random 1.0 ug/dl
--- NOTE | 2025-10-24 16:34 | CM ---
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 She is independent in activates of daily living.She does drive .No adaptive devices.JERRI reviewed with her and she declined to sign
.Requested resumption of [facility] Liaison Sumi notified .
Had [facility] current . No SNF hx
Pharmacy [facility]
PCP Dr Julián Evans
PLAN Home with [facility]
[2025-10-24 16:42] LABS: Glucose - Point of Care 101 mg/dl (70-99)
[2025-10-24] MEDS: LOVENOX 40 MG SC (18:07)
[2025-10-24] MEDS: TYLENOL 650 MG PO (20:37)
[2025-10-24] MEDS: TRICOR 48 MG PO (20:38)
[2025-10-24 22:17] LABS: Glucose - Point of Care 128 mg/dl (70-99)
[2025-10-24] MEDS: AMBIEN 2.5 MG PO (22:44)
[2025-10-24] MEDS: LANTUS 0.12 UNITS SC (22:45)
[2025-10-25] MEDS: ZOSYN 50 IV ×4 (02:36→20:12)
[2025-10-25 02:42] VITALS: BP 110/47
--- NOTE | 2025-10-25 04:15 | PTCARENOTE ---
RN and staff responded to bed alarm. Pt found urinating into small bedside trash can. Pt stated she had called many times with no answer. Pt unharmed, able to ambulate safely to Restroom. Upon return to bed call mcgrath tested and worked, pt asked to
show staff what she pushed to alter staff, pt then pressed on red light under call mcgrath button. Pt reeducated on how to use call bed and how to confirm it went off correctly by looking for red lights to appear on wall unit. Pt verbalized
understanding and demonstrated process to staff.
--- NOTE | 2025-10-25 07:39 | W.PN.HOSP.TC ---
Today's Communication/Plan
-
- Hold morning basal insulin and give D50, continue to trend with sliding scale
- ACTH stimulation test w cosyntropin
- Hold on giving glucocorticoids, pending results of above test
- IVF
- Follows w Dr. Song (endocrinology) - will tb with him/Dr. Mendoza
- Continue IV zosyn, empiric
- Plan to trial a pause in abx if blood cx negative
- Final urine cx pending
- Blood cx x2 pending
- Continue to trend CBC
- Transfuse if Hgb<7
- Oncology consulted, appreciate recs
Assessment / Plan
Assessment / Plan
80yo F with a hx of emphysema/pulmonary fibrosis, stage IV squamous cell lung ca (bone mets; s/p chemo/immunotherapy >1 mo ago), T2DM, & who presents with subacute nausea/vomiting/poor appetite and 2 days of dizziness with fall at home, found to
have low cortisol c/f adrenal insufficiency.
#Adrenal insufficiency
#Hypoglycemia
#Hyponatremia
#Lethargy/poor appetite/nausea
Suite of sx likely explained by adrenal insufficiency, given low random cortisol 1.0 (drawn at time where range 4.5-20s). Urine Na high 93, urine osm 580. Hyponatremia likely 2/2 adrenal insuff, maybe element of SIADH or hypovolemia given poor PO
intake/nausea. Adrenal insufficiency likely iatrogenic, 2/2 prior immunotherapy.
Today - glucose 65, Na 130
- Hold morning basal insulin and give D50, continue to trend with sliding scale
- ACTH stimulation test w cosyntropin
- Hold on giving glucocorticoids, pending results of above test
- IVF
- Follows w Dr. Song (endocrinology) - will tb with him/Dr. Mendoza
#Low grade intermittent fevers, FUO
Pt with intermittent low-grade fevers (100.7, 100.1). Pt without focus on infection or evidence of source - no diarrhea, no abd tenderness, no dysuria, no wounds/breaks to the skin. CXR negative for PNA, no cough. Flu/covid negative. UA not c/f UTI.
Urine cx: sparse growth, too young to be identified. No indwelling lines. CMP not suggesting liver/biliary tract issue; although patient with nausea/vomiting. Potentially triggered by low blood glucose/low cortisol. Perhaps element of malignancy
fever, given known stage IV metastatic squamous cell lung cancer.
Today - afebrile 98.6; BP 110/74, HR 73; s/p tylenol overnight
- Continue IV zosyn, empiric
- Plan to trial a pause in abx if blood cx negative
- Final urine cx pending
- Blood cx x2 pending
- Oncology consulted, appreciate recs
#Anemia
#Thrombocytopenia
#Leukopenia
Likely 2/2 chronic dz. Hgb 8.6 today, baseline 8-10. Plt 72, baseline 80-90. WBC 3.1 (c/w baseline). Current exacerbation of cytopenias, with all trending lower than typical low baseline. Potentially in s/o physiologic stress w current
illness/hospitalization vs. underlying malignancy progression with bone marrow suppression.
Today - hgb 7.8, WBC 2, plt 70
- Continue to trend CBC
- Transfuse if Hgb<7
- Oncology consulted, appreciate recs
#Syncopal episode
Episode of brief LOC/fall at home 10/23 following 2 days lightheadedness, w/o palpitations. EKG normal sinus. 10/23 CT head negative. 10/23 CT PE: without evidence of PE; demonstrated combined pulmonary fibrosis/emphysema w bilateral GGO, stable;
demonstrated 1.3cm nodule in inferior RLL c/w known malignancy; demonstrated T3 vertebral sclerotic focus c/w osseous mets. Orthostatic vitals 10/23 negative.
Likely 2/2 hypotension/hypovolemia in s/o days of nausea/vomiting and poor PO intake & low cortisol.
- Plan as above
#Chronic
#Lung cancer - s/p chemo/immunotherapy, not currently receiving; sees /Onco; planning for RT w [facility] in new few weeks
#IDDM - low sliding scale insulin + home insulin regimen
# - known valvular dz
#Pulmonary fibrosis and emphysema - bronchodilators PRN
#Essential HTN - holding amlodipine & benazepril, given hypotension
#Global
- DVT ppx: lovenox
- Code: DNR
- Diet: regular
- Dispo: pending resolution of illness
Anticipated Discharge: > 48 hours
Subjective/Interval History
-
Date of Service: October 25, 2025
Pt feeling okay this am. Conversant, seems in fine spirits. States that she still feels lethargic and like wet rag. Denies any vomiting. Still a bit nauseous. Still with low appetite.
Objective Data
-
Labs:
Laboratory Results
10/25/25
06:00
WBC Pending
Hgb Pending
Hct Pending
Plt Count Pending
Sodium Pending
Potassium Pending
Chloride Pending
Carbon Dioxide Pending
BUN Pending
Creatinine Pending
Glucose Pending
Calcium Pending
Vital Signs:
Vital Signs
Temp Pulse Resp BP Pulse Ox
98.6 F 73 16 110/47 96
10/25/25 02:42 10/25/25 02:42 10/25/25 02:42 10/25/25 02:42 10/25/25 02:42
I&O
10/24/25 10/25/25 10/26/25
06:59 06:59 06:59
Intake Total 480 / 480 1200 / 1200
Balance 480 / 480 1200 / 1200
Review of Systems
-
History Source: Patient
Constitutional: Reports No Appetite, Fatigue and Weakness
EENT: Reports No Symptoms Reported
Respiratory: Reports No Symptoms
Cardiac: Reports No Symptoms
Abdomen/GI: Reports Nausea
Musculoskeletal: Reports No Symptoms
Skin: Reports No Symptoms
Neuro: Reports No Symptoms
Physical Exam
-
General: Well Developed, Well Nourished and Other (lethargic)
HEENT: Normocephalic, Atraumatic and Moist Mucous Membranes
Respiratory: Clear to Auscultation and Non Labored Respirations
Cardiac: Regular Rhythm
GI: Soft, Nontender and Nondistended
Musculoskeletal: No Edema
Skin: Warm and Dry
Neuro: Awake and Alert
Psych: Calm
Data Reviewed
-
Total Time Spent with Patient (in minutes): 15
Critical Care Time (in minutes): 45
Labs: Labs Reviewed by me
[2025-10-25 07:48] LABS: Glucose - Point of Care 76 mg/dl (70-99)
[2025-10-25 08:04] VITALS: BP 115/88
--- NOTE | 2025-10-25 08:50 | PTCARENOTE ---
Accucheck result= 76, made aware, new orders provided, see MAR.
[2025-10-25 08:51] LABS: Hematocrit 21.8 % (37.0-47.0); Hemoglobin 7.8 g/dL (12.0-16.0); Mean Corp Hgb Conc. 35.8 g/dL (33.0-37.0); Mean Corpuscular Volume 91.2 fL (81.0-99.0); Platelet Count 70 10^3/uL (130-400); Red Cell Dist. Width 13.2 % (11.5-14.5)
[2025-10-25] MEDS: NOVOLOG FLEXPEN SC (08:51)
[2025-10-25] MEDS: NOVOLOG FLEXPEN-LOW RESISTANCE SC ×3 (08:52→17:41)
--- NOTE | 2025-10-25 08:52 | PTCARENOTE ---
Lab informed this RN of critical WBC count. WBC count=2.0. MD & resident made aware. Will continue to monitor.
[2025-10-25 09:04] LABS: Blood Urea Nitrogen 14 mg/dl (7-17); Calcium 8.2 mg/dl (8.4-10.2); Carbon Dioxide 20 mmol/L (22-30); Chloride 105 mmol/L (98-107); Estimated Creatinine Clearance 34 ml/min; Glucose 65 mg/dl (70-99); Potassium 4.0 mmol/L (3.5-5.1); Sodium 130 mmol/L (135-145); eGFR 50.80
--- NOTE | 2025-10-25 10:06 | CON.ONC ---
Consultation
-
Date Consultation Requested: 10/25/25
Date Consultation Performed: 10/25/25
Requesting Provider: Juma Talbot
Performing Provider: Danielle
Reason for Consultation: Lung CA
Impression
Impression
Iatrogenic adrenal insufficiency 2* immunotherapy
Syncope
Fever w/o sepsis
Stage IV squamous cell lung cancer in CR by PET scan last month except a new nodule in right lower lobe. Patient is in process of scheduling SRS
Pancytopenia 2* chemo
Plan
Plan
Per the NCCN guidelines:
A random cortisol <2 mcg/dL warrants immediate treatment, while levels between 2-5 mcg/dL should prompt treatment and endocrinology referral.
Acutely symptomatic or hospitalized patients require stress dose steroids (hydrocortisone 100 mg IV x1, then 50 mg every 8 hours, tapered based on clinical parameters)
Once endocrinology contacted tomorrow (post holiday), typically treatment is modified to Hydrocortisone 20 mg PO every morning and 10 mg PO in early afternoon.
Cosyntropin stimulation testing is not recommended in acute settings as it can be normal in acute secondary adrenal insufficiency and would not exclude hypophysitis.
Hold immunotherapy until acute symptoms resolve and hormone replacement is initiated.
Discussed with primary hospitalist. Consult Nohemi (his collateral clerk - can wait until 10/26).
Patient History
History of Present Illness
80 y/o F HX emphysema, pulm fibrosis, current metastatic lung cancer on Carbo + Abraxane + IPI/NIVO (last chemo was over a month ago). Also has DM and follows w Dr. Song. She presented to ER with generalized weakness, fatigue, decreased
appetite and intermittent nausea vomiting all of which as been ongoing for multiple days. This culminated in a syncopal episode yesterday fell hitting her right hip and chin. Noted to have random cortisol = 1. Has chemo associated pancytopenia.
Low grade temp 100.7. Recent repeat PET scan last month showed new nodule in right lower lobe. Patient is in process of getting SRS radiation therapy set up. PET otherwise is ROSALIND
Past-Medical/Surgical History
PMH: Squamous cell cancer with liver mets, skin ca, HTN, Hypercholesterolemia, Hypothyroidism, pulm fibrosis, cirrhosis, and IDDM
PSH: Cholecystectomy and
Social History
Tobacco: Non-smoker
Alcohol: None
Drug: None
Family History
Family History: Not pertinent
Allergies / Home Medications
Patient Medication
�Medication �Instructions �Recorded �Confirmed �Last Taken �Type
amlodipine 5 mg tablet 5 mg PO BID Blood Pressure 01/17/25 10/23/25 10/22/25 History
fenofibrate 160 mg tablet 160 mg PO HS High Cholesterol 01/17/25 10/23/25 10/22/25 History
fluoxetine 40 mg capsule 40 mg PO NOON Depression 01/17/25 10/23/25 10/22/25 History
levothyroxine 100 mcg tablet 100 mcg PO NOON Thyroid 01/17/25 10/23/25 10/22/25 History
zolpidem 5 mg tablet (Ambien) 2.5 mg PO HS Sleep 01/17/25 10/23/25 10/21/25 History
benazepril 40 mg tablet 80 mg PO DAILY Blood Pressure 01/18/25 10/23/25 10/22/25 History
semaglutide 1 mg/dose (4 mg/3 mL) 1 mg SC FR Diabetes 01/18/25 10/23/25 10/19/25 History
subcutaneous pen injector (Ozempic)
cyanocobalamin (vitamin B-12) 500 500 mcg PO MOONEY Supplement 10/22/25 10/23/25 10/21/25 History
mcg tablet
insulin aspart U-100 100 unit/mL 6 unit SC AC Diabetes 10/23/25 10/23/25 10/22/25 History
(3 mL) subcutaneous pen (Novolog
FlexPen U-100 Insulin aspart)
insulin glargine 100 unit/mL (3 12 unit SC HS Diabetes 10/23/25 10/23/25 10/22/25 History
mL) subcutaneous pen (Lantus
Solostar U-100 Insulin)
insulin glargine 100 unit/mL (3 20 unit SC DAILY Diabetes 10/23/25 10/23/25 10/22/25 History
mL) subcutaneous pen (Lantus
Solostar U-100 Insulin)
oxycodone-acetaminophen 5 mg-325 1 tab PO Q4H PRN mild pain 10/23/25 10/23/25 10/23/25 History
mg tablet
pantoprazole 40 mg tablet,delayed 40 mg PO NOON Gastrointestinal 10/23/25 10/23/25 10/22/25 History
release Issue
Active Medications
Generic Name Dose Route Start Last Admin
Trade Name Freq PRN Reason Stop Dose Admin
Acetaminophen 650 mg 10/24/25 19:55 10/24/25 20:37
Acetaminophen 325 Mg Tablet PO 11/21/25 19:54 650 mg
Q6HPRN PRN Administration
headache,mild pain,fever>100.4
Calcium Carbonate 400 mg 10/24/25 06:26 10/24/25 06:38
Calcium Antacid 200 Mg (Calcium Carbonate 500 Mg) Chew Tablet PO 11/21/25 06:25 400 mg
Q4HPRN PRN Administration
indigestion
Cosyntropin 0.25 mg 10/26/25 07:00
Cosyntropin (0.25 Mg/Ml) 1 Ml Vial IV 10/26/25 07:01
ONCE ONE
Dextrose 12.5 grams 10/23/25 16:46
Dextrose 50% (0.5 Grams/Ml) 50 Ml Syringe IV 11/20/25 16:45
[id number] PRN
hypoglycemia
Protocol
Enoxaparin Sodium 40 mg 10/23/25 18:00 10/24/25 18:07
Enoxaparin Sodium 40 Mg/0.4 Ml Syringe SC 11/20/25 17:59 40 mg
QPM YING Administration
Fenofibrate 48 mg 10/23/25 22:00 10/24/25 20:38
Fenofibrate 48 Mg Tablet PO 11/20/25 21:59 48 mg
HS YING Administration
Fluoxetine HCl 40 mg 10/24/25 12:00 10/24/25 13:07
Fluoxetine 20 Mg Capsule PO 11/21/25 11:59 40 mg
NOON YING Administration
Glucagon 1 mg 10/23/25 16:46
Glucagon 1 Mg Vial IM 11/20/25 16:45
PRN PRN
hypoglycemia
Protocol
Insulin Glargine 20 units/ 0.2 mls @ 0 mls/hr 10/24/25 08:00 10/25/25 08:52
Device SC 11/21/25 07:59 Not Given
On Hold: 10/25/25 08:18 DAILY YING
As Directed
Insulin Glargine 12 units/ 0.12 mls @ 0 mls/hr 10/23/25 22:00 10/24/25 22:45
Device SC 11/20/25 21:59 0.12 mls
On Hold: 10/25/25 08:18 HS YING Administration
As Directed
Sodium Chloride 1,000 mls @ 100 mls/hr 10/24/25 11:30 10/24/25 20:31
Nss IV 1,000 mls
.Q10H YING Administration
Piperacillin Sod/Tazobactam Sod 2.25 grams in 50 mls @ 100 mls/hr 10/24/25 14:00 10/25/25 08:52
Zosyn IV 50 mls
Q6H YING Administration
Insulin Aspart 6 units 10/23/25 16:46 10/25/25 08:51
Insulin Aspart (Novolog) 100 Units/Ml 3 Ml Flexpen SC 11/20/25 16:45 Not Given
On Hold: 10/25/25 08:18 AC YING
Insulin Aspart 0 units 10/23/25 16:46 10/25/25 08:52
Insulin Aspart Low Resistance 300 Units/3 Ml Pen.Injctr SC 11/20/25 16:45 Not Given
AC YING
Protocol
Levothyroxine Sodium 100 mcg 10/24/25 12:00 10/24/25 13:07
Levothyroxine 100 Mcg Tablet PO 11/21/25 11:59 100 mcg
NOON YING Administration
Ondansetron HCl 4 mg 10/24/25 06:26 10/24/25 06:39
Ondansetron 4 Mg/2 Ml Vial IV 11/21/25 06:25 4 mg
Q6HPRN PRN Administration
NAUSEA/VOMITING
Oxycodone/Acetaminophen 1 tablet 10/23/25 15:22 10/24/25 13:16
Oxycodone 5 Mg/Apap 325 Mg (Percocet) PO 11/06/25 15:21 1 tablet
Q4H PRN Administration
mild pain
Pantoprazole Sodium 40 mg 10/24/25 12:00 10/24/25 13:07
Pantoprazole 40 Mg Delayed Release Tablet PO 11/21/25 11:59 40 mg
NOON YING Administration
Sodium Chloride 0 flush 10/23/25 17:00
Sodium Chloride 0.9% (Flush) Syringe IV 11/20/25 16:59
PER PROTOCOL YING
Sodium Chloride 1 ml 10/26/25 07:00
Sodium Chloride 0.9% (Preservative Free) 10 Ml Vial IV 10/26/25 07:01
ONCE ONE
Zolpidem Tartrate 2.5 mg 10/23/25 22:00 10/24/25 22:44
Zolpidem Tartrate 5 Mg Tablet PO 11/20/25 21:59 2.5 mg
HS YING Administration
Physical Exam
-
General: Well Developed, Well Nourished, No Apparent Distress and Comfortable
HEENT: Negative Jaundice
Cardiology: S1 and S2
Pulmonary: Clear
GI: Soft and Normal Bowel Sounds; Negative Distended
Extremities: No C/C/E
Neurology: Non Focal
Hematologic / Lymphatic: No Lymphadenopathy
Psych: Calm
Labs
Lab Results
WBC 2.0 10^3/uL (4.8-10.8) L* 10/25/25 08:01
RBC 2.39 10^6/uL (4.20-5.40) L 10/25/25 08:01
Hgb 7.8 g/dL (12.0-16.0) L 10/25/25 08:01
Hct 21.8 % (37.0-47.0) L 10/25/25 08:01
MCV 91.2 fL (81.0-99.0) 10/25/25 08:01
MCH 32.6 pg (27.0-31.0) H 10/25/25 08:01
MCHC 35.8 g/dL (33.0-37.0) 10/25/25 08:01
RDW 13.2 % (11.5-14.5) 10/25/25 08:01
Plt Count 70 10^3/uL (130-400) L 10/25/25 08:01
MPV 9.7 fL (7.4-10.4) 10/25/25 08:01
Abs Immat Gran (auto) 0.0 10^3/uL (0-0.05) 10/23/25 10:54
Absolute Neuts (auto) 2.6 10^3/uL (1.4-6.5) 10/23/25 10:54
Absolute Lymphs (auto) 0.8 10^3/uL (1.2-3.4) L 10/23/25 10:54
Absolute Monos (auto) 0.4 10^3/uL (0.1-0.6) 10/23/25 10:54
Absolute Eos (auto) 0.1 10^3/uL (0-0.7) 10/23/25 10:54
Absolute Basos (auto) 0.0 10^3/uL (0-0.2) 10/23/25 10:54
Immature Gran % 0.5 % (0-0.5) 10/23/25 10:54
Neutrophils % 65.2 % (42.2-75.2) 10/23/25 10:54
Lymphocytes % 20.8 % (20.5-51.1) 10/23/25 10:54
Monocytes % 10.6 % (1.7-9.3) H 10/23/25 10:54
Eosinophils % 2.7 % (0-6) 10/23/25 10:54
Basophils % 0.2 % (0-2) 10/23/25 10:54
Creatinine 1.1 mg/dL (0.6-1.0) H 10/25/25 08:01
Laboratory Tests
10/24/25
12:02
Random Cortisol 1.0
Vital Signs
Vital Signs
Temp Pulse Resp BP Pulse Ox
98.3 F 79 20 115/88 97
10/25/25 08:04 10/25/25 08:04 10/25/25 08:04 10/25/25 08:04 10/25/25 08:04
[2025-10-25] MEDS: PERCOCET 5/325 1 TABLET PO ×2 (10:58→20:19)
[2025-10-25 11:51] LABS: Glucose - Point of Care 103 mg/dl (70-99)
[2025-10-25 11:52] VITALS: BP 94/55
[2025-10-25] MEDS: PROTONIX 40 MG PO (12:12)
[2025-10-25] MEDS: PROZAC 40 MG PO (12:12)
[2025-10-25] MEDS: NSS 1000 IV (12:12)
[2025-10-25] MEDS: TYLENOL 650 MG PO (12:12)
[2025-10-25] MEDS: SYNTHROID 100 MCG PO (12:12)
[2025-10-25 15:47] VITALS: BP 98/37
[2025-10-25] MEDS: LOVENOX 40 MG SC (17:37)
[2025-10-25 17:41] LABS: Glucose - Point of Care 132 mg/dl (70-99)
[2025-10-25 20:21] LABS: Hepatitis C Antibody Negative (Negative)
[2025-10-25 21:05] LABS: Glucose - Point of Care 186 mg/dl (70-99)
[2025-10-25] MEDS: AMBIEN PO ×2 (21:06→21:08)
[2025-10-25] MEDS: TRICOR 48 MG PO (21:06)
[2025-10-25 23:39] VITALS: BP 114/37
[2025-10-26] VITALS (7 sets, daily range): BP systolic 107–131; BP diastolic 43–70
[2025-10-26] MEDS: ZOSYN 50 IV ×2 (02:17→08:24)
[2025-10-26] MEDS: NSS 1000 IV (02:19)
[2025-10-26] MEDS: ZOFRAN 4 MG IV (06:06)
--- NOTE | 2025-10-26 07:38 | W.PN.HOSP.TC ---
Addendum entered and electronically signed by Juma Talbto MD 10/26/25 13:34:
I saw and evaluated the patient. I reviewed the resident�s note and agree with findings and plan as documented in the resident�s note.
1. Syncope -suspecting due to hypotension in turn from lonnie disease. Monitor orthostatic vitals. Patient getting IV fluid and blood pressure somewhat improved.
2. Fever of unexplained origin -patient spiked temperature of 100.7 Fahrenheit and again 100.8F . CT chest did not show any VTE/infection. Patient not endorsing any diarrhea intially, now probably some with zosyn. No urinary symptoms/negative
UA. COVID flu negative. Blood culture negative.
No recent procedures. Patient do not have any wound. No indwelling catheter/Port-A-Cath in place. ID consulted for further help.
3. Adrenal insufficiency -random cortisol of 1. Suspected from immunotherapy related . Cortisol stim test showing suboptimal response to cosyntropin - pointing toward primary adrenal insufficiency. ACTH level pending. Patient follows up with
Nohemi , discussed case with on-call endocrinology Dr. Fany Mendoza and recommended to start hydrocortisone 10mg am/5mg pm split dosing. Providing IV hydrocortisone 100 mg followed by 50mg q8h for next 24-48 hrs before switching to oral. No
refractory hypotension, have some persistent nausea/vomiting episode in night. No indication of fludrocortisone and will consider initiation.
3. Hyponatremia - possible lonnie disease related. monitor response with steroids. may involved nephrology if further decline despite on steroids.
4. Stage IV squamous cell lung cancer -patient have undergone chemotherapy earlier in the year. Repeat PET scan last month showed new nodule in right lower lobe. Patient is in process of getting repeat radiation therapy.
5. pancytopenia -patient has chronic thrombocytopenia but also have developed neutropenia and normocytic anemia. Oncology help have been requested. ANC of 1.3 - neutropenic precautions. HBg 7.2 - blood consent obtained and providing one unit pRBC
6. Generalized weakness/fatigue -PT OT following
7. Hypoglycemia, type 2 diabetes mellitus -patient have labile blood glucose. Likely recent deficiency adding to the Hypoglycemia events. For now maintain patient on insulin sliding scale. Post initiation of hydrocortisone therapy patient will
require to be put back slowly on home dose insulin. Encourage oral intake.
Daughter at bedside updated
Complex care.
Original Note:
Today's Communication/Plan
-
- Pending results of ACTH stimulation test w cosyntropin
- Start stress dose hydrocortisone 100mg IV bolus following results of ACTH stim test
- IVF
- Continue empiric IV zosyn, given new fever today
- Pending final results of blood cx
- ID consulted, appreciate recs
- Follows w Dr. Song (endocrinology), made aware
- Oncology consulted, appreciate recs
- Continue to trend CBC
- PRN zofran
Assessment / Plan
Assessment / Plan
80yo F with a hx of emphysema/pulmonary fibrosis, stage IV squamous cell lung ca (bone mets; s/p chemo/immunotherapy >1 mo ago), T2DM, & who presents with subacute nausea/vomiting/poor appetite and 2 days of dizziness with fall at home, found to
have low cortisol c/w adrenal insufficiency.
#Adrenal insufficiency
#Hypoglycemia
#Hyponatremia
#Lethargy/poor appetite/nausea
Suite of sx likely explained by adrenal insufficiency, given low random cortisol 1.0 (drawn at time where range 4.5-20s). Urine Na high 93, urine osm 580. Hyponatremia likely 2/2 adrenal insuff, maybe element of SIADH or hypovolemia given poor PO
intake/nausea. Adrenal insufficiency likely iatrogenic, 2/2 prior immunotherapy. Likely primary; awaiting am cosyntropin stim test for confirmation.
Today - BP 114/37, glucose 186, Na (pending this am), K wnl
- Pending results of ACTH stimulation test w cosyntropin
- Start stress dose hydrocortisone 100mg IV bolus following results of ACTH stim test
- IVF
- Follows w Dr. Song (endocrinology), made aware
- PRN zofran
#Low grade intermittent fevers, FUO
Pt with intermittent low-grade fevers (100.7, 100.1). Pt without focus on infection or evidence of source - no diarrhea, no abd tenderness, no dysuria, no wounds/breaks to the skin. CXR negative for PNA, no cough. Flu/covid negative. UA not c/f UTI.
Urine cx: sparse growth, too young to be identified. No indwelling lines. CMP not suggesting liver/biliary tract issue; although patient with nausea/vomiting. Blood cx without growth in 24hr. Potentially triggered by low blood glucose/low cortisol.
Perhaps element of malignancy fever, given known stage IV metastatic squamous cell lung cancer. Given low WBC, may consider element of neutropenic fever.
Today - fever to 100.8; last tylenol >12hr ago
- Continue empiric IV zosyn, given new fever today
- Pending final results of blood cx
- ID consulted, appreciate recs
#Anemia
#Thrombocytopenia
#Leukopenia
Likely 2/2 chronic dz. Hgb 8.6 today, baseline 8-10. Plt 72, baseline 80-90. WBC 3.1 (c/w baseline). Current exacerbation of cytopenias, with all trending lower than typical low baseline. Potentially in s/o physiologic stress w current
illness/hospitalization vs. underlying malignancy progression with bone marrow suppression.
- Continue to trend CBC
- Transfuse if Hgb<7
- Oncology consulted, appreciate recs
#Syncopal episode
Episode of brief LOC/fall at home 10/23 following 2 days lightheadedness, w/o palpitations. EKG normal sinus. 10/23 CT head negative. 10/23 CT PE: without evidence of PE; demonstrated combined pulmonary fibrosis/emphysema w bilateral GGO, stable;
demonstrated 1.3cm nodule in inferior RLL c/w known malignancy; demonstrated T3 vertebral sclerotic focus c/w osseous mets. Orthostatic vitals 10/23 negative.
Likely 2/2 hypotension/hypovolemia in s/o days of nausea/vomiting and poor PO intake & low cortisol.
- Plan as above
#Chronic
#Lung cancer - s/p chemo/immunotherapy, not currently receiving; sees /Onco; planning for RT w [facility] in new few weeks
#IDDM - low sliding scale insulin + home insulin regimen
# - known valvular dz
#Pulmonary fibrosis and emphysema - bronchodilators PRN
#Essential HTN - holding amlodipine & benazepril, given hypotension
#Global
- DVT ppx: lovenox
- Code: DNR
- Diet: regular
- Dispo: today vs tomorrow
Anticipated Discharge: 24 - 48 hours
Subjective/Interval History
-
Date of Service: October 26, 2025
Pt feeling crummy this am. Had episode of emesis after sipping water. Endorsing fever/chills. Otherwise, no pain. Still lethargic.
Objective Data
-
Labs:
Laboratory Results
10/26/25
06:00
WBC Pending
Hgb Pending
Hct Pending
Plt Count Pending
Sodium Pending
Potassium Pending
Chloride Pending
Carbon Dioxide Pending
BUN Pending
Creatinine Pending
Glucose Pending
Calcium Pending
Vital Signs:
Vital Signs
Temp Pulse Resp BP Pulse Ox
98.2 F 76 16 114/37 96
10/25/25 23:39 10/25/25 23:39 10/25/25 23:39 10/25/25 23:39 10/25/25 23:39
I&O
10/25/25 10/26/25 10/27/25
06:59 06:59 06:59
Intake Total 1200 / 1200 1090 / 1090
Balance 1200 / 1200 1090 / 1090
Review of Systems
-
History Source: Patient
Constitutional: Reports No Appetite, Fatigue, Chills and Weakness
EENT: Reports No Symptoms Reported
Respiratory: Reports No Symptoms
Cardiac: Reports No Symptoms
Abdomen/GI: Reports Nausea and Vomiting
Musculoskeletal: Reports No Symptoms
Skin: Reports No Symptoms
Neuro: Reports No Symptoms
Physical Exam
-
General: Well Developed, Well Nourished and Other (lethargic, endorses feeling uncomfortable/nauseous)
HEENT: Normocephalic, Atraumatic and Moist Mucous Membranes
Respiratory: Clear to Auscultation and Non Labored Respirations
Cardiac: Regular Rhythm
GI: Soft, Nontender and Nondistended
Musculoskeletal: No Edema
Skin: Warm and Dry
Neuro: Awake and Alert
Psych: Calm
Data Reviewed
-
Total Time Spent with Patient (in minutes): 15
Critical Care Time (in minutes): 45
Labs: Labs Reviewed by me
[2025-10-26 07:54] LABS: Glucose - Point of Care 160 mg/dl (70-99)
[2025-10-26] MEDS: TYLENOL 650 MG PO (08:24)
[2025-10-26] MEDS: CORTROSYN 0.25 MG IV (08:56)
--- NOTE | 2025-10-26 09:07 | W.PN.ONC2 ---
Today's Communication / Plan
-
Start cortisone replacement NOHEMY. Primary team coordinating Tx with endocrine.
Impression
Impression
Iatrogenic adrenal insufficiency 2* immunotherapy
Syncope
Fever w/o sepsis
Stage IV squamous cell lung cancer in CR by PET scan last month except a new nodule in right lower lobe. Patient is in process of scheduling SRS
Pancytopenia 2* chemo
Plan
Plan
Primary hospitalist connected with endocrine (Dr. Mendoza covering Dr. Song) after I saw patient yesterday and decision was to treat her without initial stress dose steroids and instead to treat with maintenance hydrocortisone 10 AM/5 PM.
Suspect this might have been related to her type II DM which would most likely exacerbate with such high doses steroids and it has been labile. Hopefully will be able to start and will kick in soon regarding her symptoms. Cortisyn sim test also
being done to formally distinguish between primary (unlikely here) and secondary [place]'s disease - most likely here from I/O
Per the NCCN guidelines:
A random cortisol <2 mcg/dL warrants immediate treatment, while levels between 2-5 mcg/dL should prompt treatment and endocrinology referral.
Acutely symptomatic or hospitalized patients require stress dose steroids (hydrocortisone 100 mg IV x1, then 50 mg every 8 hours, tapered based on clinical parameters)
Once endocrinology contacted tomorrow (post holiday), typically treatment is modified to Hydrocortisone 20 mg PO every morning and 10 mg PO in early afternoon.
Cosyntropin stimulation testing is not recommended in acute settings as it can be normal in acute secondary adrenal insufficiency and would not exclude hypophysitis.
Hold immunotherapy until acute symptoms resolve and hormone replacement is initiated.
Discussed with primary hospitalist. Consult Nohemi (his tugboat pilot - can wait until 10/26).
Subjective/Objective
Chief Complaint
ACS Oncology F/U
Subjective
States she had a 'horrible night' with nausea and vomiting.
Vital Signs:
Vital Signs
Temp Pulse Resp BP Pulse Ox
100.8 F H 87 16 131/43 97
10/26/25 08:02 10/26/25 08:02 10/26/25 08:02 10/26/25 08:02 10/26/25 08:02
Lab Results:
Laboratory Data
WBC 2.0 10^3/uL (4.8-10.8) L* 10/25/25 08:01
Hgb 7.8 g/dL (12.0-16.0) L 10/25/25 08:01
Plt Count 70 10^3/uL (130-400) L 10/25/25 08:01
eGFR 50.80 10/25/25 08:01
Physical Exam
Cardiology: S1 and S2
Pulmonary: Clear
GI: Soft
Extremities: No C/C/E
Orders
Orders
Orders From Last 24 Hours
10/25/25 10:29
Hydrocortisone Sod Succinate [Solu-Cortef] 100 mg IV NOW STA
10/25/25 16:00
Hydrocortisone Sod Succinate [Solu-Cortef] 50 mg IV Q8
[2025-10-26 09:21] LABS: ACTH Stim Cortisol 0 Min 1.1 ug/dl
[2025-10-26 09:57] LABS: Hematocrit 20.0 % (37.0-47.0); Hemoglobin 7.2 g/dL (12.0-16.0); Mean Corp Hgb Conc. 36.0 g/dL (33.0-37.0); Mean Corpuscular Volume 90.1 fL (81.0-99.0); Platelet Count 61 10^3/uL (130-400); Red Cell Dist. Width 13.2 % (11.5-14.5)
[2025-10-26] MEDS: NOVOLOG FLEXPEN-LOW RESISTANCE SC (09:59)
[2025-10-26] MEDS: SOLU-CORTEF 100 MG IV (10:16)
[2025-10-26 10:18] LABS: Blood Urea Nitrogen 7 mg/dl (7-17); Calcium 7.9 mg/dl (8.4-10.2); Carbon Dioxide 19 mmol/L (22-30); Chloride 105 mmol/L (98-107); Estimated Creatinine Clearance 41 ml/min; Glucose 134 mg/dl (70-99); Potassium 3.8 mmol/L (3.5-5.1); Sodium 128 mmol/L (135-145); eGFR > 60.00
[2025-10-26 10:31] LABS: ACTH Stim Cortisol 30 Min 6.7 ug/dl
--- NOTE | 2025-10-26 10:47 | CON.ID ---
Consultation
-
Date/Time Consultation Requested: 10/26/2025 0807
Date/Time Consultation Performed: 10/26/2025 1047
Requesting Provider: Dr. Talbot
Performing Provider: Dr. Orellana
Reason for Consultation: Fever
Chief Complaint / Past History
History of Present Illness
Adelaide Walker is a 80-year-old female with a significant past medical history of metastatic lung cancer being evaluated at the request of Dr. Talbot regards to fever. History is obtained from chart review, along with patient interview. Additional
history was obtained from patient's daughter who is at the bedside.
The patient reports that she received chemotherapy greater than about a month ago, which included immunotherapy. For the past few weeks she reports that she has felt 'terrible' with progressive and profound fatigue, often just falling asleep
throughout the day. She recently has been evaluated at [facility] on several occasions and admitted for several days earlier in the month, with an ER visit several days ago. Following that ER visit she was discharged to home, but
reportedly passed out. She reports overall poor appetite. She also has had some diarrhea today. Her hospital course thus far has been significant for the finding of a low cortisol level, and she has been started on stress dose steroids. She
denies any cough or sputum production. Since admission, she has developed 2 separate occasions of fever which resolved. She has been started on antibiotics, and Infectious Diseases assessed, and upon further antimicrobial therapy.
Past History
Additional Past Medical History:
Emphysema
Pulmonary fibrosis
Metastatic lung cancer (Carbo + Abraxane + IPI/NIVO)
DM
HTN
HLD
Hypothyroidism
Additional Past Surgical History:
Cholecystectomy
Allergy History:
ciprofloxacin (From Cipro) Allergy (Verified 10/23/25 16:57)
Arm itching
erythromycin base Allergy (Verified 10/23/25 16:57)
Itching/SWELLING
Sulfa (Sulfonamide Antibiotics) Allergy (Verified 10/23/25 10:01)
swelling,itching,difficulty breathing
vycril sutures Allergy (Uncoded 10/23/25 10:01)
rejection - area never healed
Medications Reviewed: Yes
Current Antibiotics:
Zosyn 2.25 gm IV q.6 hours
Social History
Tobacco: Non-Smoker
Alcohol: None
Drug: None
Personal: Partner
Living: With Family
Employment: Retired
Family History
Family History: Not Pertinent
Review of Systems
Vital Signs
Temp Pulse Resp BP Pulse Ox
100.8 F H 87 16 131/43 97
10/26/25 08:02 10/26/25 08:02 10/26/25 08:02 10/26/25 08:02 10/26/25 08:02
Physical Exam
Physical Exam
Constitutional: No Acute Distress, Comfortable, Chronically Ill and Non-toxic
Head: Normocephalic
Eyes: Pupils Equal, Pupils Round, No Conjunctival Hemorrhage and Sclera Anicteric
Oral: No Thrush, No Ulcers and Other (Edentulous)
Lymph Nodes: Negative Lymphadenopathy
Cardiovascular: Regular Rate and S1/S2; Negative S3/S4
Pulmonary: Clear and Non Labored; Negative Wheezes, Rales or Rhonchi
Gastrointestinal: Soft, Non Tender, Non Distended and Normal Bowel Sounds
Extremities: Negative Edema, Cyanosis or Erythema
Skin: Warm and Dry; Negative Rash or Jaundice
Neurological: Awake and Alert
Psychological: Calm
.
Lab / Diagnostic Study Results
10/26/25 09:35
10/26/25 09:35
Abs Immat Gran (auto) 0.0 10^3/uL (0-0.05) 10/23/25 10:54
Absolute Neuts (auto) 2.6 10^3/uL (1.4-6.5) 10/23/25 10:54
Absolute Lymphs (auto) 0.8 10^3/uL (1.2-3.4) L 10/23/25 10:54
Absolute Monos (auto) 0.4 10^3/uL (0.1-0.6) 10/23/25 10:54
Absolute Basos (auto) 0.0 10^3/uL (0-0.2) 10/23/25 10:54
Immature Gran % 0.5 % (0-0.5) 10/23/25 10:54
Neutrophils % 65.2 % (42.2-75.2) 10/23/25 10:54
Lymphocytes % 20.8 % (20.5-51.1) 10/23/25 10:54
Monocytes % 10.6 % (1.7-9.3) H 10/23/25 10:54
Eosinophils % 2.7 % (0-6) 10/23/25 10:54
Basophils % 0.2 % (0-2) 10/23/25 10:54
Lactic Acid 0.8 mmol/L (0.7-2.0) 10/24/25 12:02
Ur Squamous Epith Cells >30 /LPF (Few) 10/23/25 11:12
Microbiology Results
Micro:
10/24/25 12:48 Blood Culture - Preliminary
Blood/Venous No Growth in 24 hours- Final report to follow
10/24/25 12:02 Blood Culture - Preliminary
Blood/Venous No Growth in 24 hours- Final report to follow
10/23/25 11:12 Urine Culture - Final
Urine
10/24/25 09:04 Influenza Types A & B (ZOEY) - Final
Nasal Swab Negative for Influenza A & B, NAAT
Negative results must be combined with clinical observations
and patient history.
Nucleic Acid Amplification test (NAAT)performed on the
[employer] platform.
Imaging:
10/23/2025 CT chest (PE study): no evidence of central, lobar or pulmonary embolism. Findings of combined pulmonary fibrosis and emphysema, with ground glass changes in the bilateral lung bases. Please see full dictation for additional detail.
Assessment / Plan
Profound fatigue
Adrenal insufficiency
Fever
Stage IV squamous cell lung cancer; recent chemotherapy (Carbo + Abraxane + IPI/NIVO)
Emphysema
Pulmonary fibrosis
DM
HTN
HLD
Hypothyroidism
Recommendations:
Etiology of fevers unclear, although suspect infectious etiology is less likely at this time.
Would discontinue further antibiotics for now, with close clinical observation.
Continue to monitor white count and temperature curve. If temperatures become more frequent or persist, can reinstitute empiric antibiotic therapy.
Tx of adrenal insufficiency as per primary service.
Further recommendations as additional data is returned.
[2025-10-26 11:20] LABS: ACTH Stim Cortisol 60 Min 10.2 ug/dl
[2025-10-26 11:48] LABS: Glucose - Point of Care 168 mg/dl (70-99)
[2025-10-26] MEDS: PERCOCET 5/325 1 TABLET PO ×2 (11:49→20:53)
[2025-10-26] MEDS: PROZAC 40 MG PO (11:49)
[2025-10-26] MEDS: PROTONIX 40 MG PO (11:49)
[2025-10-26] MEDS: SYNTHROID 100 MCG PO (11:50)
[2025-10-26 12:53] LABS: Absolute Neutrophils -Man Diff 1.3 10^3/uL (1.4-6.5); Normal RBC Morphology Yes; Platelets Checked Yes; Total Cells Counted 100
[2025-10-26] MEDS: NOVOLOG FLEXPEN-LOW RESISTANCE 1 UNITS SC (14:20)
[2025-10-26] MEDS: SOLU-CORTEF 50 MG IV (16:22)
[2025-10-26 16:46] LABS: Glucose - Point of Care 320 mg/dl (70-99)
[2025-10-26] MEDS: LOVENOX 40 MG SC (18:24)
[2025-10-26] MEDS: NOVOLOG FLEXPEN-LOW RESISTANCE 4 UNITS SC (18:24)
[2025-10-26 21:47] LABS: Glucose - Point of Care 450 mg/dl (70-99)
[2025-10-26] MEDS: TRICOR 48 MG PO (22:04)
[2025-10-26] MEDS: AMBIEN PO (22:06)
[2025-10-26 22:32] LABS: Glucose 407 mg/dl (70-99)
[2025-10-26] MEDS: NOVOLOG FLEXPEN 7 UNITS SC (22:41)
[2025-10-27 01:03] LABS: Glucose - Point of Care 397 mg/dl (70-99)
[2025-10-27] MEDS: NOVOLOG FLEXPEN 5 UNITS SC ×2 (01:12→03:39)
[2025-10-27] MEDS: SOLU-CORTEF 50 MG IV ×3 (01:13→17:32)
[2025-10-27 03:25] LABS: Glucose - Point of Care 355 mg/dl (70-99)
[2025-10-27 06:02] LABS: Glucose - Point of Care 317 mg/dl (70-99)
[2025-10-27 06:50] LABS: Hematocrit 24.3 % (37.0-47.0); Hemoglobin 8.8 g/dL (12.0-16.0); Mean Corp Hgb Conc. 36.2 g/dL (33.0-37.0); Mean Corpuscular Volume 91.0 fL (81.0-99.0); Platelet Count 75 10^3/uL (130-400); Red Cell Dist. Width 12.9 % (11.5-14.5)
[2025-10-27 07:00] VITALS: BP 118/53
[2025-10-27 07:08] LABS: ALT (SGPT) 19 U/L (0-35); AST (SGOT) 24 U/L (14-36); Albumin 3.0 g/dl (3.5-5.0); Alkaline Phosphatase 67 U/L (38-126); Blood Urea Nitrogen 16 mg/dl (7-17); Calcium 8.6 mg/dl (8.4-10.2); Carbon Dioxide 25 mmol/L (22-30); Chloride 106 mmol/L (98-107); Estimated Creatinine Clearance 41 ml/min; Glucose 283 mg/dl (70-99); Potassium 4.5 mmol/L (3.5-5.1); Sodium 133 mmol/L (135-145); Total Protein 5.3 g/dl (6.3-8.2); eGFR > 60.00
[2025-10-27 08:07] LABS: Glucose - Point of Care 281 mg/dl (70-99)
[2025-10-27 09:10] LABS: Nucleated Red Blood Cells % 0 %
[2025-10-27] MEDS: PERCOCET 5/325 1 TABLET PO ×2 (10:09→14:29)
[2025-10-27] MEDS: LANTUS 0.1 UNITS SC (10:11)
[2025-10-27] MEDS: NOVOLOG FLEXPEN-LOW RESISTANCE 3 UNITS SC (10:11)
[2025-10-27 11:50] LABS: Glucose - Point of Care 332 mg/dl (70-99)
[2025-10-27] MEDS: SYNTHROID 100 MCG PO (11:57)
[2025-10-27] MEDS: PROZAC 40 MG PO (11:57)
[2025-10-27] MEDS: PROTONIX 40 MG PO (11:57)
[2025-10-27] MEDS: NOVOLOG FLEXPEN-LOW RESISTANCE 4 UNITS SC (11:59)
--- NOTE | 2025-10-27 12:07 | W.PN.ID1 ---
Date of Service
Date of Service: October 27, 2025
Today's Communication
afebrile over the last 24 hours
Assessment / Plan
Fever
Neutropenia
Profound fatigue
Adrenal insufficiency
Stage IV squamous cell lung cancer; recent chemotherapy (Carbo + Abraxane + IPI/NIVO)
Emphysema
Pulmonary fibrosis
DM
HTN
HLD
Hypothyroidism
Recommendations:
Etiology of fevers unclear, although suspect infectious etiology is less likely at this time.
Close clinical observation off of antibiotics
Continue to monitor white count and temperature curve. If temperatures become more frequent or persist, can reinstitute empiric antibiotic therapy.
Tx of adrenal insufficiency as per primary service.
Further recommendations as additional data is returned.
Chief Complaint
-: Fever
Subjective / Review of Systems
afebrile the last 24 hours
bp stable
no overnight events
chronic diarrhea unchanged
Vital Signs / Physical Exam
Vital Signs
Vital Signs
Temp Pulse Resp BP Pulse Ox
97.6 F 70 16 118/53 98
10/27/25 11:05 10/27/25 07:00 10/27/25 07:00 10/27/25 07:00 10/27/25 10:35
Physical Exam
Constitutional: No Acute Distress
Cardiovascular: Regular Rate and S1/S2; Negative Murmur or Rub
Pulmonary: Clear and Symmetric; Negative Wheezes or Rales
Gastrointestinal: Soft, Non Tender, Non Distended and Normal Bowel Sounds
Skin: Warm and Dry; Negative Rash or Jaundice
Objective Data
Lab Data
Lab Results
10/27/25 06:18
10/27/25 06:18
Estimated Creat Clear 41 ml/min 10/27/25 06:18
Lactic Acid 0.8 mmol/L (0.7-2.0) 10/24/25 12:02
Total Bilirubin 0.6 mg/dl (0.2-1.3) 10/27/25 06:18
AST 24 U/L (14-36) 10/27/25 06:18
ALT 19 U/L (0-35) 10/27/25 06:18
Alkaline Phosphatase 67 U/L (38-126) 10/27/25 06:18
Most recent labs reviewed.
Micro Results:
10/24/25 12:48 Blood Culture - Preliminary
Blood/Venous No Growth in 48 hours- Final report to follow
10/24/25 12:02 Blood Culture - Preliminary
Blood/Venous No Growth in 48 hours- Final report to follow
10/23/25 11:12 Urine Culture - Final
Urine
10/24/25 09:04 Influenza Types A & B (ZOEY) - Final
Nasal Swab Negative for Influenza A & B, NAAT
Negative results must be combined with clinical observations
and patient history.
Nucleic Acid Amplification test (NAAT)performed on the
[employer] platform.
Imaging:
10/23/2025 CT chest (PE study): no evidence of central, lobar or pulmonary embolism. Findings of combined pulmonary fibrosis and emphysema, with ground glass changes in the bilateral lung bases. Please see full dictation for additional detail.
--- NOTE | 2025-10-27 14:19 | W.PN.HOSP.TC ---
Today's Communication/Plan
-
see note
Assessment / Plan
Assessment / Plan
1. Syncope -suspecting due to hypotension in turn from lon[place] disease. Orthostatic vital signs remain negative for last 24 hours. Patient not reporting any dizziness.
2. Fever of unexplained origin -patient spiked temperature of 100.7 Fahrenheit and again 100.8F . CT chest did not show any VTE/infection. Patient not endorsing any diarrhea intially, now probably some with zosyn. No urinary symptoms/negative
UA. COVID flu negative. Blood culture negative.
No recent procedures. Patient do not have any wound. No indwelling catheter/Port-A-Cath in place. Patient has been taken off of empiric Zosyn. ID following and help appreciated.
3. Adrenal insufficiency -random cortisol of 1. ACTH stim test suggestive of primary addisoni. ACTH level pending. Suspected from immunotherapy related . Patient follows up with Dr. Song , discussed case with on-call endocrinology Dr. Soares
Reji and recommended to start hydrocortisone 10mg am/5mg pm split dosing. Providing IV hydrocortisone 100 mg followed by 50mg q8h for next 24-48 hrs before switching to oral. No refractory hypotension, have some persistent nausea/vomiting
episode in night. Will need addition of fludrocortisone based on BP trend.
3. Hyponatremia - possible [place] disease related. monitor response with steroids. Imrproved with glucocorticoid replacement
4. Stage IV squamous cell lung cancer -patient have undergone chemotherapy earlier in the year. Repeat PET scan last month showed new nodule in right lower lobe. Patient is in process of getting repeat radiation therapy.
5. pancytopenia -patient has chronic thrombocytopenia but also have developed neutropenia and normocytic anemia. Oncology help have been requested. ANC of 1.3 - neutropenic precautions. HBg 7.2 - 1 uprbc - 8.8 today, monitor
6. Generalized weakness/fatigue -PT OT following
7. Hypoglycemia, type 2 diabetes mellitus -patient have labile blood glucose. Likely recent deficiency adding to the Hypoglycemia events. For now maintain patient on insulin sliding scale. Post initiation of hydrocortisone therapy patient will
require to be put back slowly on home dose insulin. Encourage oral intake.
8. Acute hypoxic respiratory insufficiency - on 2L NC, CT chest shows pulmonary fibrosis. Crackles on exam likely from that. Satting 99%, likely does not need o2, wean off.
Daughter milly updated over phone
Complex medical care.
Anticipated Discharge: 24 - 48 hours
Subjective/Interval History
-
Date of Service: October 27, 2025
no abd pain/nausea/vomiting today
patient perked up and feels much improved
BG uptrending
no fever
Objective Data
-
Labs:
Laboratory Results
10/27/25
06:18
WBC 1.4 L*
Hgb 8.8 L D
Hct 24.3 L
Plt Count 75 L D
Sodium 133 L
Potassium 4.5
Chloride 106
Carbon Dioxide 25
BUN 16
Creatinine 0.9
Glucose 283 H
Calcium 8.6
Total Bilirubin 0.6
AST 24
ALT 19
Alkaline Phosphatase 67
Vital Signs:
Vital Signs
Temp Pulse Resp BP Pulse Ox
97.6 F 70 16 118/53 98
10/27/25 11:05 10/27/25 07:00 10/27/25 07:00 10/27/25 07:00 10/27/25 10:35
I&O
10/26/25 10/27/25 10/28/25
06:59 06:59 06:59
Intake Total 1090 / 1090 490 / 490 780 / 780
Balance 1090 / 1090 490 / 490 780 / 780
Review of Systems
-
Respiratory: Reports No Symptoms
Cardiac: Reports No Symptoms
Abdomen/GI: Reports No Symptoms
Physical Exam
-
General: Negative Appears in Distress
HEENT: Oxygen (2L )
Respiratory: Crackles (at lung bases)
Cardiac: Regular Rhythm and S1/S2; Negative Murmur
GI: Soft, Nontender and Nondistended
Neuro: Awake, Alert, Oriented and No Motor Deficits
[2025-10-27 15:00] VITALS: BP 110/48; BP 125/52; BP 129/52; BP 131/54; PULSE 72; PULSE 94
[2025-10-27 15:01] LABS: Glucose - Point of Care 416 mg/dl (70-99)
[2025-10-27 16:02] LABS: Glucose 377 mg/dl (70-99)
--- NOTE | 2025-10-27 16:55 | W.PN.UPDATE ---
Update Note
Progress Note Update
Patient did not get lunch premeal insulin since had a late lunch. Post lunch - blood glucose 377. Advised RN to give premeal lunchtime Lispro 6units now, then measure pre-meal BG before dinner and give dinnertime premeal+SS insulin
[2025-10-27] MEDS: PERCOCET 5/325 2 TABLET PO (17:29)
[2025-10-27] MEDS: NOVOLOG FLEXPEN 6 UNITS SC ×2 (17:36→19:11)
[2025-10-27] MEDS: NOVOLOG FLEXPEN-LOW RESISTANCE SC (17:38)
[2025-10-27 18:13] LABS: Glucose - Point of Care 434 mg/dl (70-99)
[2025-10-27 19:07] LABS: Glucose 407 mg/dl (70-99)
[2025-10-27] MEDS: NOVOLOG FLEXPEN-MODERATE RESISTANCE 11 UNITS SC (19:12)
[2025-10-27 21:20] LABS: Glucose - Point of Care 343 mg/dl (70-99)
[2025-10-27] MEDS: PERCOCET 5/325 PO (22:04)
[2025-10-27] MEDS: NOVOLOG FLEXPEN 7 UNITS SC (22:05)
[2025-10-27 23:00] VITALS: BP 123/54
[2025-10-27] MEDS: TRICOR 48 MG PO (23:23)
[2025-10-27] MEDS: AMBIEN 2.5 MG PO (23:23)
[2025-10-28 00:36] LABS: Glucose - Point of Care 214 mg/dl (70-99)
[2025-10-28] MEDS: PERCOCET 5/325 PO ×5 (01:00→22:57)
[2025-10-28] MEDS: SOLU-CORTEF 50 MG IV (01:26)
[2025-10-28 07:35] VITALS: BP 147/46
[2025-10-28 08:07] LABS: Hematocrit 25.1 % (37.0-47.0); Hemoglobin 8.9 g/dL (12.0-16.0); Mean Corp Hgb Conc. 35.5 g/dL (33.0-37.0); Mean Corpuscular Volume 90.6 fL (81.0-99.0); Platelet Count 93 10^3/uL (130-400); Red Cell Dist. Width 13.1 % (11.5-14.5)
[2025-10-28 08:32] LABS: Blood Urea Nitrogen 18 mg/dl (7-17); Calcium 8.7 mg/dl (8.4-10.2); Carbon Dioxide 26 mmol/L (22-30); Chloride 103 mmol/L (98-107); Estimated Creatinine Clearance 47 ml/min; Glucose 262 mg/dl (70-99); Potassium 4.3 mmol/L (3.5-5.1); Sodium 135 mmol/L (135-145); eGFR > 60.00
[2025-10-28] MEDS: LANTUS 0.2 UNITS SC (08:48)
[2025-10-28] MEDS: NOVOLOG FLEXPEN 6 UNITS SC ×2 (08:49→13:40)
[2025-10-28] MEDS: TYLENOL 650 MG PO (08:49)
[2025-10-28] MEDS: CORTEF 10 MG PO (08:49)
[2025-10-28 08:54] LABS: Glucose - Point of Care 299 mg/dl (70-99)
[2025-10-28] MEDS: NOVOLOG FLEXPEN-MODERATE RESISTANCE 5 UNITS SC (08:55)
[2025-10-28] MEDS: SOLU-CORTEF IV (09:17)
--- NOTE | 2025-10-28 10:19 | PTCARENOTE ---
Addendum entered by Mini Tejeda RN 10/28/25 10:29:
PT is aaox3 pleasant able to make needs known. PT has been identified as a high fall risk and is on neutropenic precautions with door shut. Pt has yellow fall risk sign at door, round trip sign on door, yellow band on bed and chair alarm. Hourly
rounds are being done and patient assisted into and out of bathroom. The patient has been educated on our fall precautions policy. She verbalized an understanding that she is considered a high risk and has verbally contracted with me to call before
getting in and out of bed. So far she has called us first. Hourly rounds have been maintained and room organized to minimize risk and declutter.
Original Note:
PT is aaox3 pleasant able to make needs known. PT has been identified as a high fall risk. Pt has yellow fall risk sign at door, round trip sign on door, yellow band on bed and chair alarm. Hourly rounds are being done and patient assisted into and
out of bathroom. The patient has been educated on our fall precautions policy. She verbalized an understanding that she is considered a high risk and has verbally contracted with me to call before getting in and out of bed. So far she has called us
first. Hourly rounds have been maintained and room organized to minimize risk and declutter.
[2025-10-28 12:24] LABS: Glucose - Point of Care 347 mg/dl (70-99)
[2025-10-28] MEDS: FLORINEF 0.05 MG PO (13:40)
[2025-10-28] MEDS: PROTONIX 40 MG PO (13:40)
[2025-10-28] MEDS: PROZAC 40 MG PO (13:40)
[2025-10-28] MEDS: NOVOLOG FLEXPEN-MODERATE RESISTANCE 7 UNITS SC ×2 (13:41→16:53)
[2025-10-28] MEDS: SYNTHROID 100 MCG PO (13:43)
--- NOTE | 2025-10-28 14:17 | W.PN.HOSP.TC ---
Today's Communication/Plan
-
Changed to oral Cortef
Added small dose fludrocortisone
Increased Premeal/Lantus dose
Dischargeable likely home, repeat PT pending
Assessment / Plan
Assessment / Plan
1. Syncope -suspecting due to hypotension in turn from [place] disease. Orthostatic vital signs remain negative at this point. Patient not reporting any dizziness.
2. Fever of unexplained origin -patient spiked temperature of 100.7 Fahrenheit and again 100.8F . CT chest did not show any VTE/infection. Patient not endorsing any diarrhea initially in ER, had some probably with zosyn use. No urinary
symptoms/negative UA. COVID flu negative. Blood culture negative.
No recent procedures. Patient do not have any wound. No indwelling catheter/Port-A-Cath in place. Patient has been taken off of empiric Zosyn. ID help appreciated.
3. Adrenal insufficiency -random cortisol of 1. ACTH stim test suggestive of primary [place]. ACTH level pending. Suspected from immunotherapy related . Patient follows up with Dr. Song , discussed case with on-call endocrinology Dr. Soares
Reji and recommended to start hydrocortisone 10mg am/5mg pm split dosing. Provided IV hydrocortisone 100 mg followed by 50mg q8h initially which I switched to oral Cortef today. small dose fludrocortisone added for mineralocorticoid effect,
although can be stopped as BP/K level acceptable, defer to primary recreation therapy director on f/u.
Abdominal symptoms has been resolved. patient feels significantly improved.
3. Hyponatremia - normalized. possible [place] disease related. resolved post initiation of steroid
4. Stage IV squamous cell lung cancer -patient have undergone chemotherapy earlier in the year. Repeat PET scan last month showed new nodule in right lower lobe. Patient is in process of getting repeat radiation therapy.
5. pancytopenia -patient has chronic thrombocytopenia but also have developed neutropenia and normocytic anemia. Oncology help appreciated. ANC of 1.3 - neutropenic precautions. HBg 7.2 - 1 uprbc - 8.9 today, monitor
6. Generalized weakness/fatigue - repeat PT evaluation requested, patient walked to bathroom yesterday without help per RN, expecting will be cleared for home PT
7. Hypoglycemia, type 2 diabetes mellitus -patient have labile blood glucose . Likely adrenal insufficiency adding to the Hypoglycemia events. With steroid replacement patient appetite has kicked back and blood glucose are trending on the higher
side. Rapidly uptitrating dose. Increased Premeal NovoLog to 9 units AC. Lantus PM/AM dose increased as well. Diabetic SITE SURVEYOR consult placed as well.
8. Acute hypoxic respiratory insufficiency - resolved . was on 2L NC, CT chest shows pulmonary fibrosis.
Daughter milly updated at bedside
Anticipated Discharge: 24 - 48 hours
Subjective/Interval History
-
Date of Service: October 28, 2025
feeling significantly improved
apatite has improved
denies of having issues
Objective Data
-
Labs:
Laboratory Results
10/28/25
07:38
WBC 1.6 L*
Hgb 8.9 L
Hct 25.1 L
Plt Count 93 L D
Sodium 135
Potassium 4.3
Chloride 103
Carbon Dioxide 26
BUN 18 H
Creatinine 0.8
Glucose 262 H
Calcium 8.7
Vital Signs:
Vital Signs
Temp Pulse Resp BP Pulse Ox
97.4 F 67 16 147/46 94
10/28/25 07:35 10/28/25 07:35 10/28/25 07:35 10/28/25 07:35 10/28/25 07:35
I&O
10/27/25 10/28/25 10/29/25
06:59 06:59 06:59
Intake Total 490 / 490 1979
Balance 490 / 490 1979
Review of Systems
-
Respiratory: Reports No Symptoms
Cardiac: Reports No Symptoms
Abdomen/GI: Reports No Symptoms
Physical Exam
-
General: Negative Appears in Distress
HEENT: Negative Oxygen
GI: Soft, Nontender and Nondistended
Neuro: Awake, Alert, Oriented and No Motor Deficits
[2025-10-28 14:42] VITALS: BP 162/61; PULSE 67; O2SAT 97
[2025-10-28] MEDS: PERCOCET 5/325 2 TABLET PO (15:33)
[2025-10-28 16:00] VITALS: BP 150/51
[2025-10-28 16:48] LABS: Glucose - Point of Care 306 mg/dl (70-99)
[2025-10-28] MEDS: CORTEF 5 MG PO (16:54)
[2025-10-28] MEDS: NOVOLOG FLEXPEN 9 UNITS SC (16:54)
[2025-10-28 21:37] LABS: Glucose - Point of Care 137 mg/dl (70-99)
[2025-10-28 23:00] VITALS: BP 145/55
[2025-10-28] MEDS: AMBIEN 2.5 MG PO (23:04)
[2025-10-28] MEDS: LANTUS 0.18 UNITS SC (23:05)
[2025-10-28] MEDS: TRICOR 48 MG PO (23:06)
[2025-10-29] MEDS: PERCOCET 5/325 PO ×2 (00:24→04:26)
[2025-10-29 06:42] LABS: Hematocrit 25.8 % (37.0-47.0); Hemoglobin 9.3 g/dL (12.0-16.0); Mean Corp Hgb Conc. 36.0 g/dL (33.0-37.0); Mean Corpuscular Volume 91.8 fL (81.0-99.0); Platelet Count 97 10^3/uL (130-400); Red Cell Dist. Width 13.0 % (11.5-14.5)
[2025-10-29 07:06] LABS: Blood Urea Nitrogen 20 mg/dl (7-17); Calcium 8.7 mg/dl (8.4-10.2); Carbon Dioxide 28 mmol/L (22-30); Chloride 105 mmol/L (98-107); Estimated Creatinine Clearance 41 ml/min; Glucose 52 mg/dl (70-99); Potassium 3.3 mmol/L (3.5-5.1); Sodium 137 mmol/L (135-145); eGFR > 60.00
--- NOTE | 2025-10-29 07:23 | W.PN.HOSP.TC ---
Addendum entered and electronically signed by Rosemary Spencer MD 10/29/25 14:38:
I saw and evaluated the patient independently. I reviewed and discussed the resident�s note and agree with findings and plan as documented by Dr. Stephens.
GENERAL: well developed, well nourished, female in no apparent distress
HEENT: NC/AT--no O2 requirements
HEART: regular rate and rhythm, +S1, +S2, ABDIRASHID
LUNGS : clear to auscultation bilaterally
ABDOM: soft, nontender, nondistended, + bowel sounds
EXT: no cyanosis, clubbing, or edema
NEUROLOGIC: grossly intact
Primary adrenal insufficiency --along with hypoglycemia/hyponatremia/hypokalemia--all likely due to AI--STIM test confirms primary adrenal insufficiency--hydrocortisone started at stress doses and weaned down to outpt dosing--can stop
fludrocortisone with increasing BPs--will need follow up with outpt endo
Low grade intermittent fevers, FUO --again likely due to adrenal insufficiency--no signs of infection--malignancy could contribute--f/u with Dr. Herrera as outpt--apprec ID--ABX stopped
pancytopenia--likely due to malignancy and treatments--stress, etc--follow up as outpt
Syncopal episode --Episode of brief LOC/fall at home 10/23 following 2 days lightheadedness, w/o palpitations-- EKG normal sinus. 10/23 CT head negative. 10/23 CT PE: without evidence of PE; demonstrated combined pulmonary fibrosis/emphysema w
bilateral GGO, stable; demonstrated 1.3cm nodule in inferior RLL c/w known malignancy; demonstrated T3 vertebral sclerotic focus c/w osseous mets. Orthostatic vitals 10/23 negative.
Likely 2/2 hypotension/hypovolemia in s/o days of nausea/vomiting and poor PO intake & low cortisol--home with VN
Lung cancer - s/p chemo/immunotherapy, not currently receiving; sees /Onco; planning for RT w Marchekar in new few weeks
Type 2 DM--insulin requiring-- labile blood glucose during this admission; uptitrated insulin dosing with increased glucose s/p steroids; diabetic GAS PLANT OPERATOR consulted; held am insulin 10/29 given glucose 52 --await DM ACTIVATED SLUDGE OPERATOR input
- known valvular dz
Pulmonary fibrosis and emphysema - bronchodilators PRN
Essential HTN - holding amlodipine & benazepril--can restart at d/c
DVT proph-- lovenox
Code status-- DNR
Original Note:
Today's Communication/Plan
-
- Discharge kinjal today to daughter's home with first-floor setup, pending meeting with diabetes GAS PLANT OPERATOR
- Continue PO hydrocortisone 15mg daily (10mg am, 5mg qhs)
- Stop 0.05mg PO fludrocortisone daily (started 10/28), given low K and elevated BP
- Baseline ACTH pending
- Follows w Dr. Song (endocrinology), made aware - should follow up
Assessment / Plan
Assessment / Plan
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
have low cortisol & ACTH stim test c/w adrenal insufficiency.
#Primary adrenal insufficiency
#Hypoglycemia, resolved
#Hyponatremia, resolved
#Hypokalemia, mild
#Lethargy/poor appetite/nausea, resolved
Suite of sx likely explained by adrenal insufficiency, given low random cortisol 1.0 (drawn at time where range 4.5-20s). Urine Na high 93, urine osm 580. Hyponatremia likely 2/2 adrenal insuff, maybe element of SIADH or hypovolemia given poor PO
intake/nausea - resolved s/p hydrocortisone/fludrocortisone. ACTH stimulation test c/w primary adrenal insufficiency. Adrenal insufficiency likely iatrogenic, 2/2 prior immunotherapy. Pt s/p stress dose IV hydrocortisone started 10/26. Mild
hypokalemia likely 2/2 fludrocortisone.
Today - BP 145/55, Na 137, K 3.3
- Continue PO hydrocortisone 15mg daily (10mg am, 5mg qhs)
- Stop 0.05mg PO fludrocortisone daily (started 10/28), given low K and elevated BP
- IVF
- Baseline ACTH pending
- PRN zofran
- Follows w Dr. Song (endocrinology), made aware
#Low grade intermittent fevers, FUO
Pt with intermittent low-grade fevers (100.7, 100.8). Pt without focus on infection or evidence of source - no diarrhea, no abd tenderness, no dysuria, no wounds/breaks to the skin. CXR negative for PNA, no cough. Flu/covid negative. UA not c/f UTI.
Urine cx: sparse growth, too young to be identified. No indwelling lines. CMP not suggesting liver/biliary tract issue; although patient with nausea/vomiting. Blood cx without growth in 48hr. Potentially triggered by low blood glucose/low cortisol.
Perhaps element of malignancy fever, given known stage IV metastatic squamous cell lung cancer. Given low WBC, may consider element of neutropenic fever. Per ID consult, infectious etiology unlikely, okay to stop zosyn. S/p empiric zosyn, stopped
10/26.
Today - temp 98.2, no fever in last 24hr
- Continue to monitor
- PRN tylenol
- ID & oncology consulted, appreciate recs
#Anemia
#Thrombocytopenia
#Leukopenia
Pt experienced exacerbation of cytopenias, with all trending lower than typical low baseline. Potentially in s/o physiologic stress w current illness/hospitalization vs. underlying malignancy progression with bone marrow suppression. Likely element
of anemia of chronic dz.
Today - hgb & plt improved s/p 1u prbc (10/26); WBC remains low 2.1
- Neutropenic precautions
- Transfuse if Hgb<7
- Continue to trend CBC
- Oncology consulted, appreciate recs
#Syncopal episode
Episode of brief LOC/fall at home 10/23 following 2 days lightheadedness, w/o palpitations. EKG normal sinus. 10/23 CT head negative. 10/23 CT PE: without evidence of PE; demonstrated combined pulmonary fibrosis/emphysema w bilateral GGO, stable;
demonstrated 1.3cm nodule in inferior RLL c/w known malignancy; demonstrated T3 vertebral sclerotic focus c/w osseous mets. Orthostatic vitals 10/23 negative.
Likely 2/2 hypotension/hypovolemia in s/o days of nausea/vomiting and poor PO intake & low cortisol.
- Plan as above
#Chronic
#Lung cancer - s/p chemo/immunotherapy, not currently receiving; sees /Onco; planning for RT w Marchekar in new few weeks
#IDDM - labile blood glucose during this admission; uptitrating insulin dosing with increased glucose s/p steroids; diabetic GAS PLANT OPERATOR consulted; held am insulin 10/29 given glucose 52
# - known valvular dz
#Pulmonary fibrosis and emphysema - bronchodilators PRN
#Essential HTN - holding amlodipine & benazepril, given hypotension
#Global
- DVT ppx: lovenox
- Code: DNR
- Diet: regular
- Dispo: today to daughter's home with first-floor setup, pending meeting with diabetes GAS PLANT OPERATOR
Anticipated Discharge: Today
Subjective/Interval History
-
Date of Service: October 29, 2025
Pt feeling much better today. No n/v, much improved in terms of lethargy. Discussed plan for discharge on hydrocortisone & following up with endo. Discussed updated DM mgmt with the steroids - looking forward to speaking with diabetes GAS PLANT OPERATOR.
Objective Data
-
Labs:
Laboratory Results
10/29/25
05:47
WBC 2.1 L*
Hgb 9.3 L
Hct 25.8 L
Plt Count 97 L
Sodium 137
Potassium 3.3 L
Chloride 105
Carbon Dioxide 28
BUN 20 H
Creatinine 0.9
Glucose 52 L*
Calcium 8.7
Vital Signs:
Vital Signs
Temp Pulse Resp BP Pulse Ox
98.2 F 63 16 145/55 95
10/28/25 23:00 10/28/25 23:00 10/28/25 23:00 10/28/25 23:00 10/28/25 23:10
I&O
10/28/25 10/29/25 10/30/25
06:59 06:59 06:59
Intake Total 1979 720 / 720
Output Total 400 / 400
Balance 1979 320 / 320
Review of Systems
-
History Source: Patient
Constitutional: Reports No Symptoms
Respiratory: Reports No Symptoms
Cardiac: Reports No Symptoms
Abdomen/GI: Reports No Symptoms
Musculoskeletal: Reports No Symptoms
Skin: Reports No Symptoms
Neuro: Reports No Symptoms
Physical Exam
-
General: Well Developed, Well Nourished and No Apparent Distress
HEENT: Normocephalic and Atraumatic
Respiratory: Clear to Auscultation
Cardiac: Regular Rhythm
GI: Soft, Nontender and Nondistended
Musculoskeletal: No Edema
Skin: Warm and Dry
Neuro: Awake, Alert and Oriented
Psych: Calm
Data Reviewed
-
Total Time Spent with Patient (in minutes): 15
Critical Care Time (in minutes): 45
Labs: Labs Reviewed by me
[2025-10-29 07:30] VITALS: BP 144/53
[2025-10-29] MEDS: CORTEF 10 MG PO (07:46)
[2025-10-29] MEDS: FLORINEF 0.05 MG PO (07:46)
[2025-10-29 07:47] LABS: Glucose - Point of Care 114 mg/dl (70-99)
[2025-10-29] MEDS: PERCOCET 5/325 2 TABLET PO ×3 (07:47→15:25)
[2025-10-29] MEDS: NOVOLOG FLEXPEN SC ×2 (08:02→14:19)
[2025-10-29] MEDS: NOVOLOG FLEXPEN-MODERATE RESISTANCE SC ×2 (08:04→13:24)
--- NOTE | 2025-10-29 08:29 | PN.DE.MGMTRT ---
Insulin Management
- -
10/29/2025: Diabetes management Consult
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
fall at home, found to have low cortisol & ACTH stim test c/w adrenal insufficiency (cortisol at 6.7 in 30min, 10.2 in 1hr). Etiology thought to be iatrogenic secondary to immunotherapy treatment for squamous cell lung cancer. Patient was started
on stress dose IV hydrocortisone with subsequent hyperglycemia. Her insulin doses were increased while on steroids.
Pt routinely sees Endo Dr. Mendoza. She was taking Lantus 20 units daily in AM, 12 units @ HS, NovoLog 6 units AC and Ozempic 12.5mg Q Fridays. A1C 6.3%, Cr 0.9, eGFR >60
Pt awake, alert, oriented, sitting up, offers no complaints, able to discuss diabetes care plan. She has many questions regarding dietary restrictions, states she doesn't eat a lot of processed foods or baked goods but is not sure of what would be
bad for her.
She has been transitioned to PO hydrocortisone (10 mg in the morning, 5 mg in the evening).
Glucose has improved as noted for hypoglycemia this morning of 52, improved after treatment.
Will reduce Lantus dose to her home dose of 20 units daily in AM, 12 units @ HS and AC NovoLog 6 units. Change to low corrective with meals
Pt and given instructions on how to obtain CGM through her primary Assistant [employer] Professional- pt has an upcoming appt on 11/07.
Discussed with Nurse. Will cont to follow
Diabetes History
- -
Type of Diabetes: 2 requiring insulin
Pre-Admission Diabetes Regimen
10/28/25 10/29/25
07:38 05:47
Creatinine 0.8 0.9
Insulin Pump Settings
IP Diabetes Regimen
10/28/25 10/28/25 10/28/25
07:38 08:53 12:23
Glucose 262 H
POC Glucose 299 H 347 H
10/28/25 10/28/25 10/29/25
16:46 21:34 05:47
Glucose 52 L*
POC Glucose 306 H 137 H
10/29/25
07:46
Glucose
POC Glucose 114 H
Patient Education
--- NOTE | 2025-10-29 09:33 | W.PN.ID1 ---
Date of Service
Date of Service: October 29, 2025
Today's Communication
Observe off abx.
Assessment / Plan
Fever - resolved
Neutropenia - resovled
Profound fatigue
Adrenal insufficiency
Stage IV squamous cell lung cancer; recent chemotherapy (Carbo + Abraxane + IPI/NIVO)
Emphysema
Pulmonary fibrosis
DM
HTN
HLD
Hypothyroidism
Recommendations:
No infectious etiology identified.
Continue to observe off abx.
Chief Complaint
-: Fever
Subjective / Review of Systems
Feels much better. Appetite good.
Had diarrhea now resolved.
Vital Signs / Physical Exam
Vital Signs
Vital Signs
Temp Pulse Resp BP Pulse Ox
97.6 F 66 16 144/53 97
10/29/25 07:30 10/29/25 07:30 10/29/25 07:30 10/29/25 07:30 10/29/25 07:30
Physical Exam
Constitutional: No Acute Distress and Comfortable
Eyes: No Conjunctival Hemorrhage and Sclera Anicteric
Cardiovascular: Regular Rate and S1/S2
Gastrointestinal: Soft, Non Tender, Non Distended and Normal Bowel Sounds
Extremities: Negative Edema
Neurological: AO x 3
Lines: Port (not accessed, no erythema)
Objective Data
Lab Data
Lab Results
10/29/25 05:47
10/29/25 05:47
Estimated Creat Clear 41 ml/min 10/29/25 05:47
Lactic Acid 0.8 mmol/L (0.7-2.0) 10/24/25 12:02
Total Bilirubin 0.6 mg/dl (0.2-1.3) 10/27/25 06:18
AST 24 U/L (14-36) 10/27/25 06:18
ALT 19 U/L (0-35) 10/27/25 06:18
Alkaline Phosphatase 67 U/L (38-126) 10/27/25 06:18
Most recent labs reviewed.
Micro Results:
10/24/25 12:48 Blood Culture - Preliminary
Blood/Venous No Growth in 4 days- Final report to follow
10/24/25 12:02 Blood Culture - Preliminary
Blood/Venous No Growth in 4 days- Final report to follow
10/23/25 11:12 Urine Culture - Final
Urine
10/24/25 09:04 Influenza Types A & B (ZOEY) - Final
Nasal Swab Negative for Influenza A & B, NAAT
Negative results must be combined with clinical observations
and patient history.
Nucleic Acid Amplification test (NAAT)performed on the
compropago platform.
Imaging:
10/23/2025 CT chest (PE study): no evidence of central, lobar or pulmonary embolism. Findings of combined pulmonary fibrosis and emphysema, with ground glass changes in the bilateral lung bases. Please see full dictation for additional detail.
[2025-10-29 10:02] LABS: Glucose - Point of Care 143 mg/dl (70-99)
[2025-10-29] MEDS: NOVOLOG FLEXPEN 5 UNITS SC (10:06)
[2025-10-29] MEDS: LANTUS 0.2 UNITS SC (10:10)
--- NOTE | 2025-10-29 10:47 | CM ---
Addendum entered by Abby Felix RN 10/29/25 14:41:
Pt said she was ready for discharge.
Pt changed to inpatient .IMM reviewed signed.
Pt home with [facility] .
Dgt Radha will drive her home.
PLAN Home with [facility]
Original Note:
ID changed to po antibiotics.
PT indicates VN
Pt requested [facility] . [facility] liaison notified of referral.
PLAN Home with [facility] if accepted
[2025-10-29] MEDS: PROZAC 40 MG PO (12:30)
[2025-10-29] MEDS: PROTONIX 40 MG PO (12:31)
[2025-10-29] MEDS: SYNTHROID 100 MCG PO (12:31)
--- NOTE | 2025-10-29 12:48 | W.DCSUMMARY ---
Addendum entered and electronically signed by Rosemary Spencer MD 10/29/25 14:40:
Read, reviewed, and agree. See same day progress note for additional details. Time spent coordinating care, DC planning, review of DC plan of care with resident, transition of care, review of records in EMR, med rec, consults, notes, d/w
consultants, nursing, family, and CM = 36 minutes
Original Note:
Discharge Summary
Discharge Data
Date of Admission: 10/29/25
Date of Discharge: 10/29/25
-
Pending Results: No
Hospital Course
Discharging Physician : Rosemary Spencer MD ; Ni Stephens MD
Disposition : home with VN
Primary care physician : Julián Evans MD
Principal Discharge diagnosis : primary adrenal insufficiency; pancytopenia; fevers of unknown origin
Chronic Discharge diagnosis : emphysema/pulmonary fibrosis, stage IV squamous cell lung ca (bone mets; s/p chemo/immunotherapy >1 mo ago), T2DM, & aortic stenosis
Hospital Course :
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
found to have low cortisol & ACTH stim test c/w adrenal insufficiency.
Patient presented to ED on 10/23 complaining of ongoing generalized weakness/fatigue, with decreased appetite and intermittent vomiting for the past few days. Patient decided to come in after she had an episode of syncope the day prior, during which
she fell and hit her hip and chin. Vital signs were stable on presentation. Workup in the ED included CT head, right hip x-ray, and CT PE, all of which were negative. CT chest redemonstrated 1.3 cm nodule in the inferior right lower lung,
consistent with patient's known malignancy, along with sclerotic focus in T3 vertebral body consistent with metastasis.
On 10/24, patient spiked a low-grade fever to 100 and 0.7, and had hypotension with BP 91/45. Patient also had hyponatremia with sodium 130. Random cortisol was checked, and returned decreased (1). Subsequent ACTH stimulation testing revealed
findings consistent with primary adrenal insufficiency (cortisol at 6.7 in 30min, 10.2 in 1hr). Etiology thought to be iatrogenic secondary to immunotherapy treatment for squamous cell lung cancer. Patient was started on stress dose IV
hydrocortisone on 10/26. On 10/28, patient was transitioned to p.o. hydrocortisone (10 mg in the morning, 5 mg in the evening). Patient's hyponatremia, weakness, lethargy, nausea/vomiting, hypotension resolved. However, given slight ongoing
hypotension, patient was started on 0.05 mg fludrocortisone on 10/28. On 10/29, patient was slightly hypertensive with BP in the 140s and with new hypokalemia to 3.3�given this, fludrocortisone was discontinued. Patient was discharged on 15 mg
daily hydrocortisone PO (10mg am, 5mg pm), and was instructed to follow-up with her loader malt house Dr. oSng within 1 week for further management.
Patient's home amlodipine and benazepril were held during inpatient stay, but were continued at time of discharge. The remainder of patient's home medications were also continued at time of discharge.
After the initial fever to 100.7., Patient spiked 1 additional fever to 100.9 about 1 to 2 days later. Infectious disease was consulted, they did not think that there was an infectious etiology of this FUO. Empiric Zosyn was stopped. Source of
fever is not completely elucidated�differential includes malignancy vs symptom of Maverick's disease vs neutropenic fever (although absolute neutrophil count makes this less likely). Patient was afebrile for 48 hours prior to time of discharge.
In addition, patient did have slight worsening of her chronic pancytopenia during this admission. WBC reached a haim of 2.1, Hgb reached a haim of 7.2, platelets reached haim of 61. Following initiation of hydrocortisone and resolution of
patient's symptoms, hemoglobin trended back up to 9.3, and platelets 20 back up to 97. WBC remained decreased at 2.1. Patient instructed to follow-up with her outpatient oncologist after discharge. Patient is scheduled for radiation therapy w
Marchekar.
Important imaging findings :
CT head (10/23):
No acute intracranial abnormality noted.
XR R hip (10/23):
There is no fracture or dislocation. Mild degenerative changes of the right hip. Mild degenerative changes of the visualized lumbar spine.
CT chest w IV contrast (10/23):
1. No evidence of central, lobar or pulmonary embolism.
2. 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 Superimposed pneumonitis or pneumonia would be difficult to exclude.
3. Similar appearance of the 1.3 cm nodule in the inferior right lower lung consistent with known malignancy. Additionally there is similar appearance of the sclerotic focus within the T3 vertebral body which likely represents an osseous metastasis.
Procedure findings : N/A
Discharge Plan
-
Patient Disposition: Home with Home Care
Discharge Diagnosis/Procedures: - Primary adrenal insufficiency
- Fevers of unknown origin
- Pancytopenia
Condition: Fair
Diet: Diabetic, Carb Controlled
Activity: No restrictions
Driving Restrictions: As prior to admission
Bathing Restrictions: None
Other Services: VN
Referrals:
Julián Evans MD [Family Provider, Family Practice] - in one week
Sheryl Song MD [Consulting Staff, Endocrinology] - in less than 1 week
Additional Discharge Medication Instructions: START taking hydrocortisone on the following schedule: 10mg in the morning and 5mg in the evening. This is to treat your primary adrenal insufficiency.
CONTINUE using insulin at home and checking your blood glucose levels (note, the hydrocortisone increases blood glucose levels).
CONTINUE the rest of your home medications as prior.
Please follow up with Dr. Song (endocrinology) within 1 week to discuss your diagnosis of primary adrenal insufficiency and your diabetes management.
Please also follow up with your primary care doctor in 1 week, and please continue following with your oncologist as scheduled.
Prescriptions:
New
hydrocortisone 10 mg Tablet
5 mg PO QPM 30 Days Qty: 15 0RF
hydrocortisone 10 mg Tablet
10 mg PO DAILY 30 Days Qty: 30 0RF
Continued
Ozempic 1 mg/dose (4 mg/3 mL) Pen Injector
1 mg SC FR
Rx Instructions:
Q
benazepril 40 mg Tablet
80 mg PO DAILY
fluoxetine 40 mg Capsule
40 mg PO NOON
amlodipine 5 mg Tablet
5 mg PO BID
levothyroxine 100 mcg Tablet
100 mcg PO NOON
zolpidem [Ambien] 5 mg Tablet
2.5 mg PO HS
fenofibrate 160 mg Tablet
160 mg PO HS
cyanocobalamin (vitamin B-12) 500 mcg Tablet
500 mcg PO MOONEY
oxycodone-acetaminophen 5-325 mg Tablet
1 tab PO Q4H PRN (Reason: mild pain)
insulin aspart U-100 [Novolog FlexPen U-100 Insulin] 100 unit/mL (3 mL) Insulin Pen
6 unit SC AC
Patient Comments:
10/23/2025, give if BS>100.
insulin glargine [Lantus Solostar U-100 Insulin] 100 unit/mL (3 mL) Insulin Pen
20 unit SC DAILY
insulin glargine [Lantus Solostar U-100 Insulin] 100 unit/mL (3 mL) Insulin Pen
12 unit SC HS
pantoprazole 40 mg tablet,delayed release (DR/EC)
40 mg PO NOON
Discharge Orders:
Discharge Patient (As Directed); Ordered 10/29/25
Ordered By: Ni Stephens
Discharge Date and Time
Print Language: NIGERIEN
[2025-10-29 13:02] LABS: Glucose - Point of Care 113 mg/dl (70-99)
--- NOTE | 2025-10-29 13:33 | W.PN.ONC2 ---
Today's Communication / Plan
-
d/w Dr. Herrera and pt, pt should proceed with planned XRT simulation
follow up with Dr. Herrera has been arranged
Impression
Impression
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
Plan
Plan
steroid management per endocrine
Subjective/Objective
Subjective
eager for discharge
diarrhea resolved
Vital Signs:
Vital Signs
Temp Pulse Resp BP Pulse Ox
97.6 F 66 16 144/53 97
10/29/25 07:30 10/29/25 07:30 10/29/25 07:30 10/29/25 07:30 10/29/25 11:32
Lab Results:
Laboratory Data
WBC 2.1 10^3/uL (4.8-10.8) L* 10/29/25 05:47
Hgb 9.3 g/dL (12.0-16.0) L 10/29/25 05:47
Plt Count 97 10^3/uL (130-400) L 10/29/25 05:47
eGFR > 60.00 10/29/25 05:47
Physical Exam
HEENT: Moist Mucous Membranes; No Jaundice
Pulmonary: Other (unlabored)
GI: Soft
Extremities: Pulses Present
--- NOTE | 2025-10-29 13:48 | VNURNOTE ---
Chart reviewed. SENSOR SPECIALIST pt current w/ [facility]. Met with pt at bedside, confirmed her DC plans: she will stay at her daughter Kacy's tonight. She might split her time between being home in [place] and staying at her daughter's house. Per pt, her
daughter's house is 'more accessible.' Updated PM-[facility] referral and Joaquina in Intake.
Daughter Kacy Leadin[address] [place] [address] Dr Bernard
[2025-10-29 15:15] VITALS: BP 147/52
--- NOTE | 2025-10-29 17:24 | PTCARENOTE ---
Pt discharged and picked up by daughter. Housekeeping came to clean pt's room and found a skinny bronze ring on the counter. Daughter was called to make aware of ring. Daughter stated 'I got that ring in a pack of 6 for $10. It's not worth turning
around on [address] for a $2 ring'. RN asked daughter what should be done with the ring and daughter stated it could be thrown away. RN made sure of decision. Daughter stated 'yes, it could be thrown away'. RN threw away ring.
== END 2025-10-29 16:58 | disposition home health service (06) | DRG 643 ==
LOC: 3 WEST ACU 07:46
PROVIDERS: Hospitalist; Nurse Practitioner Family; Physician Assistant; ADMITTING PHYSICIAN Internal Medicine; ATTENDING PHYSICIAN Internal Medicine; CONSULT PHYSICIAN Internal Medicine Hematology & Oncology; EMERGENCY PHYSICIAN Emergency Medicine; FAMILY PHYSICIAN Family Medicine; OTHER PHYSICIAN Internal Medicine Infectious Disease
PROC: 30233N1 Transfusion of Nonautologous Red Blood Cells into Peripheral Vein, Percutaneous Approach (ICD-10-PCS; 2025-10-26)
DX: E27.3 Drug-induced adrenocortical insufficiency (principal); D61.810 Antineoplastic chemotherapy induced pancytopenia; C34.90 Malignant neoplasm of unspecified part of unspecified bronchus or lung; C78.7 Secondary malignant neoplasm of liver and intrahepatic bile duct; E87.1 Hypo-osmolality and hyponatremia; R50.9 Fever, unspecified; J43.9 Emphysema, unspecified; J84.10 Pulmonary fibrosis, unspecified; T45.1X5A Adverse effect of antineoplastic and immunosuppressive drugs, initial encounter; Z92.21 Personal history of antineoplastic chemotherapy; I35.0 Nonrheumatic aortic (valve) stenosis; Z85.828 Personal history of other malignant neoplasm of skin; E03.9 Hypothyroidism, unspecified; Z79.4 Long term (current) use of insulin; E78.00 Pure hypercholesterolemia, unspecified; I10 Essential (primary) hypertension; Z90.49 Acquired absence of other specified parts of digestive tract; Z88.0 Allergy status to penicillin; Z88.2 Allergy status to sulfonamides; Z79.890 Hormone replacement therapy; Z79.85 Long-term (current) use of injectable non-insulin antidiabetic drugs; W19.XXXA Unspecified fall, initial encounter; E11.21 Type 2 diabetes mellitus with diabetic nephropathy; E87.6 Hypokalemia; Z11.52 Encounter for screening for COVID-19
CPT/HCPCS: 70450; 71275; 73502; 80048; 80053; 81003; 81015; 82024; 82533; 82947; 82962; 83605; 83690; 83735; 83930; 83935; 84300; 84439; 84443; 84484; 85025; 85027; 86803; 86850; 86900; 86901; 86920; 87040; 87086; 87502; 87811; 93005; 96360; 97162; 97530; 99285; P9016; Q9967